=== PATIENT | male | born 1950 | race Hispanic/Latino ===

== ENCOUNTER → 2017-08-05 | Emergency (ER) | payer SELFPAY ==
[~2017-08-05] VITALS: Ht 162.6 cm; Wt 92.5 kg
== END | disposition left against medical advice (07) ==
LOC: ER 10:26
DX: M79.671 Pain in right foot (principal)

== ENCOUNTER → 2018-04-15 | Outpatient (CLI) | payer OTHER ==
--- NOTE | 2018-04-16 08:44 | Diagnostic Imaging Report ---
MRI SPINE LUMBAR WO HISTORY: Low back pain; right leg pain COMPARISON: None. TECHNIQUE: Sagittal T1, sagittal T2, sagittal STIR, axial T2, coronal T2, and axial proton density weighted images of the lumbar spine were obtained without contrast. DISCUSSION: Number of non-rib bearing lumbar vertebral bodies: 5. Alignment: Normal lordosis. No scoliosis. Vertebrae: Small nodular T1/T2 hyperintense lesion along the right L3 pedicle is likely a benign hemangioma. Otherwise, no definite evidence for fractures, infection or neoplasm. Conus medullaris: Normal, ends at L1. Cauda equina: No masses or arachnoiditis. Posterior paraspinal muscles: Well preserved. No signal abnormalities. Soft tissues: Mild bilateral renal pelviectasis is present. Mild multilevel disc degeneration is present. T12-L1: Disc bulge without significant canal or foraminal stenosis. L1-L2: Patent canal and foramina. L2-L3: Disc bulge without significant canal or foraminal stenosis. L3-L4: Patent canal and foramina. L4-L5: Mild bilateral foraminal stenoses due to disc bulge and facet arthrosis. No significant canal stenosis. L5-S1: Approximately 6 mm right subarticular disc extrusion (with minimal inferior migration) impinges upon the descending right S1 nerve root. No significant central canal stenosis. Moderate right and mild left foraminal stenoses due to asymmetric disc bulge and facet arthrosis. IMPRESSION: 1. Mild multilevel disc degeneration without significant canal stenosis. 2. Approximately 6 mm right L5-S1 subarticular disc extrusion impinges upon the descending right S1 nerve. 3. Multilevel bilateral lower lumbar degenerative foraminal stenoses - moderate on the right at L5-S1. Signed by: Dr. Dony Tena M.D. on 04/16/2018 8:40 AM
== END ==
LOC: MRI 14:52
PROVIDERS: ATTEND Specialist
DX: M47.816 Spondylosis without myelopathy or radiculopathy, lumbar region (principal)
CPT/HCPCS: 72148

== ENCOUNTER 2018-04-16 08:38 | Outpatient (RCR) | payer MEDICARE | END 2018-04-17 | LOC: PT 08:38 | PROVIDERS: ATTEND Specialist | DX: M47.816 Spondylosis without myelopathy or radiculopathy, lumbar region (principal); M47.26 Other spondylosis with radiculopathy, lumbar region; M54.5 Low back pain; M54.31 Sciatica, right side; M62.81 Muscle weakness (generalized) | CPT/HCPCS: 97139 ==

== ENCOUNTER 2018-05-16 09:00 | Outpatient (RCR) | payer MEDICARE | END 2018-05-18 | LOC: PT 09:00 | PROVIDERS: ATTEND Specialist | DX: M54.5 Low back pain (principal); M53.3 Sacrococcygeal disorders, not elsewhere classified; M47.816 Spondylosis without myelopathy or radiculopathy, lumbar region; M47.26 Other spondylosis with radiculopathy, lumbar region; M62.81 Muscle weakness (generalized) ==

== ENCOUNTER 2018-05-30 08:49 | Outpatient (RCR) | payer MEDICARE | END 2018-06-17 | LOC: PT 08:49 | PROVIDERS: ATTEND Specialist | DX: M54.5 Low back pain (principal); M53.3 Sacrococcygeal disorders, not elsewhere classified ==

== ENCOUNTER 2018-10-22 02:56 | Emergency (ER) | payer MEDICARE, OTHER ==
[~2018-10-22] VITALS: Ht 162.6 cm; Wt 92.5 kg
--- OUTSIDE RECORDS SUMMARY | 2018-10-22 02:58 | XMS REPORT | Summary of Care ---
Author Author MARKIE BARRERA M.D. Organization Unknown Address [facility] Phone Unavailable Care Team Providers Care Coffee Taster Name Role Phone MARKIE BARRERA M.D. Unavailable Unavailable Marielena Baugh M.A. Unavailable Unavailable GENEVA BONNER MD Unavailable Unavailable MARKIE BARRERA MD Unavailable Unavailable Unavailable Unavailable Functional Status Name Dates Details Functional status health issues are not documented Status: Name Dates Details Cognitive status health issues are not documented Status: Problems Name Dates Details Impacted cerumen of left ear (380.4, H61.22) Status: Active Otalgia of left ear (388.70, H92.02) Status: Active Sensation of plugged ear on left side (388.8, H93.8X2) Status: Active Thyroid nodule (241.0, E04.1) Status: Active Chronic otitis externa (380.23, H60.60) Status: Active Encounter for mastoidectomy cavity debridement (383.30, H95.199) Status: Active Medications Name Dates Details Fluocinolone Acetonide 0.01 % Otic Oil 3-4 drops to both ears daily. Quantity: 2 MARKIE BARRERA M.D. * Start : 27-Feb-2018 Active 20 ML Bottle Ciprodex 0.3-0.1 % Otic Suspension 3-4 drops to the affected ear BID * Quantity: 1 Refills: 6 MARKIE BARRERA M.D. * Start : 21-Jul-2018 Active 7.5 ML Bottle Allergies and Adverse Reactions Name Dates Details No Known Drug Allergies (Allergy) Status: Active Past Medical History Name Dates Details History of Known health problems: none (V49.89, Z78.9) Status: Resolved Procedures Procedure Dates Details History of Ear Surgery Completed History of Hernia Repair Inguinal Sliding Completed History of Sinus Surgery Completed Immunization Name Dates Details Influenza Not Administered Pneumococcal polysaccharide vaccine, 23 valent Not Administered Tdap Not Administered Shingrix 50 MCG Intramuscular Suspension Reconstituted Not Administered Family History Name Dates Details No pertinent family history (V49.89, Z78.9) Comments: Unknown Status: Active Name Dates Details No pertinent family history (V49.89, Z78.9) Status: Active Social History Name Dates Details - Status: Name Dates Details Former smoker Vital Signs Date Test Result Details [id number] BP Systolic 127 mm[Hg] Status: Comments: Location: E; Position: Sitting BP Diastolic 74 mm[Hg] Status: Comments: Location: [facility] [place]; Position: Sitting Height 70 in Status: Weight 204.8 lb Status: Body Mass Index Calculated 29.39 kg/m2 Status: Body Surface Area Calculated 2.11 m2 Status: Heart Rate 77 /min Status: Results Date Description Value Details Results not documented Plan of Care Name Dates Details Planned Observations Planned Goals not documented Planned Encounters Appointment; MARKIE BARRERA M.D. On: 22-Jan-2019 10:30 Interventions Provided Medication Changes* Ciprodex 0.3-0.1 % Otic Suspension - Start Instructions Name Dates Details Instructions not documented Encounters Appointment; MARKIE BARRERA M.D. Encounter Diagnosis: Problem not documented On: 07-Dec-2016 9:30 Appointment; MARKIE BARRERA M.D. Encounter Diagnosis: Problem not documented On: 14-Mar-2017 11:00 Appointment; MARKIE BARRERA M.D. Encounter Diagnosis: Problem not documented On: 07-Jun-2017 10:30 Appointment; MARKIE BARRERA M.D. Encounter Diagnosis: Problem not documented On: 08-Aug-2017 13:45 Appointment; MARKIE BARRERA M.D. Encounter Diagnosis: Problem not documented On: 31-Oct-2017 10:30 Appointment; MARKIE BARRERA M.D. Encounter Diagnosis: Problem not documented On: 07-Nov-2017 14:30 Appointment; MARKIE BARRERA M.D. Encounter Diagnosis: Problem not documented On: 27-Feb-2018 13:00 Appointment; MARKIE BARRERA M.D. Encounter Diagnosis: Problem not documented On: 17-Jul-2018 10:30
--- OUTSIDE RECORDS SUMMARY | 2018-10-22 02:58 | XMS REPORT | Clinical Summary ---
Author Author [facility] Organization [facility] Address Unknown Phone Unavailable Care Team Providers Care Dumper Bailer Operator Name Role Phone PCP Unavailable Allergies No Known Allergies Current Medications Prescription Sig. Disp. Refills Start End Date Status Date ibuprofen (MOTRIN) 800 mg Take 1 tablet by mouth 60 tablet 2 07/08/19 Active tabletIndications: every 8 hours as needed 14 Cholesteatoma of left for Pain. ear, H/O mastoidectomy, Otorrhea HYDROcodone-acetaminophen Take 2 tablets by mouth 120 tablet 0 11/21/19 Active (NORCO) 5-325 mg every 4 hours as needed 14 tabletIndications: for Pain. Hearing loss naproxen (NAPROSYN) 375 Take 1 tablet by mouth 2 60 tablet 0 02/17/20 Active mg tabletIndications: times daily (with meals). 14 Cholesteatoma of left ear, H/O mastoidectomy, Hearing loss acetaminophen (TYLENOL) Take 650 mg by mouth Active 325 mg tablet Before meals as needed for Pain. traMADol (ULTRAM) 50 mg Take 1 tablet by mouth 30 tablet 0 04/05/19 Active tabletIndications: every 6 hours as needed 16 Otalgia of left ear for Pain. 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 HLD (hyperlipidemia) 12/18/2012 Encounters Date Type Specialty Care Team Description 12/26/2016 [facility] Leisa Lechuga Hearing loss of left ear, Encounter unspecified hearing loss type 12/26/2016 Office Visit Ent-Otolaryngology Tyler Kearney MD H/O mastoidectomy (Primary Dx); Hearing loss of left ear, unspecified hearing loss type; Cholesteatoma of left ear 10/11/2016 Office Visit Ent-Otolaryngology Tyler Kearney MD H/O mastoidectomy (Primary Dx); Hearing loss of left ear, unspecified hearing loss type; Impacted cerumen of left ear after 08/04/2016 Immunizations Name Dates Previously Given Next Due Influenza Vaccine 12/18/2012 Tdap Tetanus, diphtheria, 12/18/2012 (Deferred: Too early to give - pt acellular pertussis states he rec'd it 1 year ago) Vaccine Family History Medical History Relation Name Comments Unknown Fam Hx Relation Name Status Comments Brother Alive Brother Alive Brother Alive Brother Alive Daughter Alive Daughter Alive Father Grandchild Alive Grandchild Alive Grandchild Alive Grandchild Alive Grandchild Alive Grandchild Alive Grandchild Alive Grandchild Alive Grandchild Alive Grandchild Alive Grandchild Alive Grandchild Alive Maternal Grandfather Maternal Grandmother Mother Paternal Grandfather Paternal Grandmother Sister Alive Sister Alive Sister Alive Sister Alive Sister Alive Sister Alive Sister Alive Son Alive Social History Tobacco Use Types Packs/Day Years Used Date Never Smoker Smokeless Tobacco: Never Used Tobacco Cessation: Counseling Given: No Alcohol Use Drinks/Week oz/Week Comments Yes Sex Assigned at Date Recorded Not on file Last Filed Vital Signs Vital Sign Reading Time Taken Blood Pressure 141/76 12/26/2016 10:56 AM INFORMATION SERVICES ASSISTANT Pulse 74 12/26/2016 10:56 AM INFORMATION SERVICES ASSISTANT Temperature 36.6 C (97.9 F) 12/26/2016 10:56 AM INFORMATION SERVICES ASSISTANT Respiratory Rate 18 12/26/2016 10:56 AM INFORMATION SERVICES ASSISTANT Oxygen Saturation - - Inhaled Oxygen - - Concentration Weight 91.6 kg (202 lb) 12/26/2016 10:56 AM INFORMATION SERVICES ASSISTANT Height 177.8 cm (5' 10") 12/26/2016 10:56 AM INFORMATION SERVICES ASSISTANT Body Mass Index 28.98 12/26/2016 10:56 AM INFORMATION SERVICES ASSISTANT Plan of Treatment Health Maintenance Due Date Last Done Comments COLORECTAL CANCER SCRN 2000 ANNUAL (FIT/FOBT) AGE 50 TO 75 IMM PNEUMOCOCCAL AGE 65 07/16/2015 AND UP Results Not on fileafter 08/04/2016
--- OUTSIDE RECORDS SUMMARY | 2018-10-22 02:58 | XMS REPORT | Continuity of Care Document ---
Author Author [facility] Organization [facility] Address Unknown Phone Unavailable Care Team Providers Care Billing And Accounting Staff Assistant Name Role Phone [email or web address] Unavailable Unavailable Problems Problem Status Onset Date Classification Date Reported Comments Source Impacted cerumen of left ear Active 10/11/2016 Problem 08/09/2017 [facility] H/O mastoidectomy Active 06/15/2013 Problem 08/09/2017 [facility] Hearing loss Active 06/15/2013 Problem 08/09/2017 [facility] Cholesteatoma of left ear Active 06/15/2013 Problem 08/09/2017 [facility] HLD Active 12/18/2012 Problem 08/09/2017 [facility] Medications Medication Details Route Status Patient Instructions Ordering Provider Order Date Source Tramadol 50 Mg Tablet Ultram 50 Mg Tablet Take 1 tablet by mouth every 6 hours as needed for Pain. Oral Active 04/05/2015 [facility] Naproxen 375 Mg Tablet Take 1 tablet by mouth 2 times daily (with meals). Oral Active 02/16/2014 [facility] Hydrocodone 5 Mg-Acetaminophen 325 Mg Tablet [place] 5 Mg-325 Mg Tablet Take 2 tablets by mouth every 4 hours as needed for Pain. Oral Active 11/20/2013 [facility] Ibuprofen 800 Mg Tablet Take 1 tablet by mouth every 8 hours as needed for Pain. Oral Active 07/07/2013 [facility] Acetaminophen 325 Mg Tablet Tylenol 325 Mg Tablet Take 650 mg by mouth Before meals as needed for Pain. Oral Active [facility] Allergies, Adverse Reactions, Alerts No Known Medication Allergies Immunizations Immunization Date Given Site Status Last Updated Comments Source Influenza Vaccine 12/18/2012 completed [facility] Tdap Tetanus, diphtheria, acellular pertussis Vaccine 12/18/2012 Not Given Deferred: Too early to give - pt states he rec'd it 1 year ago [facility] Results No Data Provided for This Section Pathology Reports No Data Provided for This Section Diagnostic Reports No Data Provided for This Section Consultation Notes No Data Provided for This Section Discharge Summaries No Data Provided for This Section History and Physicals No Data Provided for This Section Vital Signs Vital Sign Value Date Comments Source Systolic (mm Hg) 141 12/26/2016 [facility] Diastolic (mm Hg) 76 12/26/2016 [facility] Heart Rate 74 12/26/2016 [facility] Temperature Oral (F) 36.61 Cathi 12/26/2016 [facility] Respitory Rate 18 12/26/2016 [facility] Height 177.8 cm 12/26/2016 [facility] Weight 91.627 12/26/2016 [facility] BMI Calculated 28.98 12/26/2016 [facility] Encounters Location Location Details Encounter Type Encounter Number Reason For Visit Attending Provider ADM Date DC Date Status Source [facility] Office Visit [id number] H/O mastoidectomy Hearing loss of left ear, unspecified hearing loss type Impacted cerumen of left ear Tyler Kearney MD 10/11/2016 10/11/2016 [facility] Office Visit [id number] H/O mastoidectomy Hearing loss of left ear, unspecified hearing loss type Cholesteatoma of left ear Tyler Kearney MD 12/26/2016 12/26/2016 [facility] Hospital Encounter [id number] Hearing loss of left ear, unspecified hearing loss type Leisa Lechuga 12/26/2016 12/27/2016 [facility] Procedures No Data Provided for This Section Assessment and Plan No Data Provided for This Section Plan of Care Plan of Care Date Source IMM PNEUMOCOCCAL AGE 65 AND UP 07/16/2015 [facility] COLORECTAL CANCER SCRN ANNUAL (FIT/FOBT) AGE 50 TO 75 2000 [facility] Social History Social History Date Source Tobacco UseTypesPacks/DayYears UsedDate Never Smoker Smokeless Tobacco: Never Used Tobacco Cessation: Counseling Given: No Alcohol UseDrinks/Weekoz/WeekComments Yes Sex Assigned at BirthDate Recorded Not on file 12/26/2016 [facility] Family History Value Date Source Medical HistoryRelationNameComments Unknown Fam Hx RelationNameStatusComments Brother Alive Brother Alive Brother Alive Brother Alive Daughter Alive Daughter Alive Father Grandchild Alive Grandchild Alive Grandchild Alive Grandchild Alive Grandchild Alive Grandchild Alive Grandchild Alive Grandchild Alive Grandchild Alive Grandchild Alive Grandchild Alive Grandchild Alive Maternal Grandfather Maternal Grandmother Mother Paternal Grandfather Paternal Grandmother Sister Alive Sister Alive Sister Alive Sister Alive Sister Alive Sister Alive Sister Alive Son Alive 08/09/2017 [facility] Medical HistoryRelationNameComments Unknown Fam Hx RelationNameStatusComments Brother Alive Brother Alive Brother Alive Brother Alive Daughter Alive Daughter Alive Father Grandchild Alive Grandchild Alive Grandchild Alive Grandchild Alive Grandchild Alive Grandchild Alive Grandchild Alive Grandchild Alive Grandchild Alive Grandchild Alive Grandchild Alive Grandchild Alive Maternal Grandfather Maternal Grandmother Mother Paternal Grandfather Paternal Grandmother Sister Alive Sister Alive Sister Alive Sister Alive Sister Alive Sister Alive Sister Alive Son Alive 08/07/2017 [facility] Medical HistoryRelationNameComments Unknown Fam Hx RelationNameStatusComments Brother Alive Brother Alive Brother Alive Brother Alive Daughter Alive Daughter Alive Father Grandchild Alive Grandchild Alive Grandchild Alive Grandchild Alive Grandchild Alive Grandchild Alive Grandchild Alive Grandchild Alive Grandchild Alive Grandchild Alive Grandchild Alive Grandchild Alive Maternal Grandfather Maternal Grandmother Mother Paternal Grandfather Paternal Grandmother Sister Alive Sister Alive Sister Alive Sister Alive Sister Alive Sister Alive Sister Alive Son Alive 08/05/2017 [facility] Advance Directives No Data Provided for This Section Functional Status No Data Provided for This Section
--- OUTSIDE RECORDS SUMMARY | 2018-10-22 02:58 | XMS REPORT | Clinical Summary ---
Author Author [facility] Organization [facility] Address Unknown Phone Unavailable Care Team Providers Care Journalists And Other Writers Name Role Phone PCP Unavailable Allergies No [...] type; Impacted cerumen of left ear after 08/06/2016 Immunizations Name Dates Previously Given Next Due [...] Taken Blood Pressure 141/76 12/26/2016 10:56 AM IN STORE DEMONSTRATOR Pulse 74 12/26/2016 10:56 AM IN STORE DEMONSTRATOR Temperature 36.6 C (97.9 F) 12/26/2016 10:56 AM IN STORE DEMONSTRATOR Respiratory Rate 18 12/26/2016 10:56 AM IN STORE DEMONSTRATOR Oxygen Saturation - - Inhaled Oxygen - - Concentration Weight 91.6 kg (202 lb) 12/26/2016 10:56 AM IN STORE DEMONSTRATOR Height 177.8 cm (5' 10") 12/26/2016 10:56 AM IN STORE DEMONSTRATOR Body Mass Index 28.98 12/26/2016 10:56 AM IN STORE DEMONSTRATOR Plan of Treatment Health Maintenance Due Date Last Done Comments COLORECTAL CANCER SCRN 2000 ANNUAL (FIT/FOBT) AGE 50 TO 75 IMM PNEUMOCOCCAL AGE 65 07/16/2015 AND UP Results Not on fileafter 08/06/2016
--- OUTSIDE RECORDS SUMMARY | 2018-10-22 02:58 | XMS REPORT | Clinical Summary ---
Author Author [facility] Organization [facility] Address Unknown Phone Unavailable Care Team Providers Care Breast Worker Name Role Phone PCP Unavailable Allergies No [...] type; Impacted cerumen of left ear after 08/08/2016 Immunizations Name Dates Previously Given Next Due [...] Taken Blood Pressure 141/76 12/26/2016 10:56 AM CATTLE SHIPPER Pulse 74 12/26/2016 10:56 AM CATTLE SHIPPER Temperature 36.6 C (97.9 F) 12/26/2016 10:56 AM CATTLE SHIPPER Respiratory Rate 18 12/26/2016 10:56 AM CATTLE SHIPPER Oxygen Saturation - - Inhaled Oxygen - - Concentration Weight 91.6 kg (202 lb) 12/26/2016 10:56 AM CATTLE SHIPPER Height 177.8 cm (5' 10") 12/26/2016 10:56 AM CATTLE SHIPPER Body Mass Index 28.98 12/26/2016 10:56 AM CATTLE SHIPPER Plan of Treatment Health Maintenance Due Date Last Done Comments COLORECTAL CANCER SCRN 2000 ANNUAL (FIT/FOBT) AGE 50 TO 75 IMM PNEUMOCOCCAL AGE 65 07/16/2015 AND UP Results Not on fileafter 08/08/2016
[2018-10-22 03:41] LABS: BASOPHILS % 0.6 % (0.0-1.0); EOSINOPHILS # (AUTO) 0.2 (0.0-0.4); EOSINOPHILS % 3.5 % (0.0-6.0); HEMATOCRIT 41.9 % (38.2-49.6); HEMOGLOBIN 14.7 g/dL (14.0-18.0); LYMPHOCYTES # (AUTO) 1.7 (1.0-3.2); LYMPHOCYTES % 35.4 % (18.0-39.1); MEAN CORPUSCULAR HEMOGLOBIN 31.3 pg (28-32); MEAN CORPUSCULAR HGB CONC 35.1 g/dL (31-35); MEAN CORPUSCULAR VOLUME 89.3 fL (81-99); MONOCYTES # (AUTO) 0.5 (0.2-0.8); MONOCYTES % 9.4 % (4.4-11.3); NEUTROPHILS # (AUTO) 2.4 (2.1-6.9); NEUTROPHILS % 50.5 % (38.7-80.0); PLATELET COUNT 190 x10e3/uL (140-360); RED BLOOD COUNT 4.69 x10e6/uL (4.3-5.7)
--- NOTE | 2018-10-22 03:57 | Diagnostic Imaging Report ---
EXAMINATION: CHEST SINGLE (PORTABLE) COMPARISON: None INDICATION: ^SOB ^[id number] ^[id number] ^Y DISCUSSION: Frontal view of the chest obtained at 0336 hours. Images obtained through a back brace. HEART AND MEDIASTINUM: The heart is normal in size. The aorta is mildly tortuous. LINES: None. LUNGS: The lungs are well inflated and clear. No pneumonia or pulmonary edema. PLEURA: No pleural effusion or pneumothorax. BONES AND SOFT TISSUES: No focal osseous lesion. The soft tissues are normal. IMPRESSION: No acute cardiopulmonary disease. Signed by: Dr. Nuha Wallace MD on 10/22/2018 3:54 AM
[2018-10-22 04:12] LABS: ALANINE AMINOTRANSFERASE 24 IU/L (0-55); ALBUMIN 3.8 g/dL (3.5-5.0); ALBUMIN/GLOBULIN RATIO 1.2 (0.8-2.0); ALKALINE PHOSPHATASE 89 IU/L (40-150); ANION GAP 13.6 mmol/L (8-16); BLOOD UREA NITROGEN 10 mg/dL (7-26); BUN/CREATININE RATIO 12 (6-25); CALCIUM 10.3 mg/dL (8.4-10.2); CARBON DIOXIDE 27 mmol/L (22-29); CHLORIDE 100 mmol/L (98-107); CREATINE KINASE 91 IU/L (30-200); CREATININE, SERUM 0.81 mg/dL (0.72-1.25); EST GLOMERULAR FILTRATION RATE > 60 ML/MIN (60-); GLUCOSE 142 mg/dL (74-118); POTASSIUM 3.6 mmol/L (3.5-5.1); SODIUM 137 mmol/L (136-145)
[2018-10-22 04:40] VITALS: BP 136/59
== END 2018-10-22 04:55 | disposition home or self-care (01) ==
LOC: ER 02:56
DX: R06.09 Other forms of dyspnea (principal); M79.89 Other specified soft tissue disorders; I10 Essential (primary) hypertension; R73.9 Hyperglycemia, unspecified; E78.5 Hyperlipidemia, unspecified
CPT/HCPCS: 36415; 71045; 80053; 82550; 82553; 83880; 84484; 85025; 85379; 93005; 99284

== ENCOUNTER 2018-11-12 04:22 | Emergency (ER) | payer MEDICARE ==
[~2018-11-12] VITALS: Ht 162.6 cm; Wt 92.5 kg
--- OUTSIDE RECORDS SUMMARY | 2018-11-12 04:24 | XMS REPORT | Continuity of Care Document ---
Author Author [facility] Organization [facility] Address Unknown Phone Unavailable Care Team Providers Care Surgeon/President Name Role Phone [employer] [facility] Unavailable Unavailable Problems Problem Status Onset Date Classification Date Reported Comments Source Impacted cerumen of left ear Active 10/11/2016 Problem 08/09/2017 [facility] H/O mastoidectomy Active 06/15/2013 Problem 08/09/2017 [facility] Hearing loss Active 06/15/2013 Problem 08/09/2017 [facility] Cholesteatoma of left ear Active 06/15/2013 Problem 08/09/2017 [facility] HLD Active 12/18/2012 Problem 08/09/2017 [facility] Medications Medication Details Route Status Patient Instructions Ordering Provider Order Date Source Tramadol 50 Mg Tablet Ultram 50 Mg Tablet Take 1 tablet by mouth every 6 hours as needed for Pain. Oral Active 04/05/2015 [facility] Naproxen 375 Mg Tablet Take 1 tablet by mouth 2 times daily (with meals). Oral Active 02/16/2014 [facility] Hydrocodone 5 Mg-Acetaminophen 325 Mg Tablet [place] 5 Mg-325 Mg Tablet Take 2 tablets by mouth every 4 hours as needed for Pain. Oral Active 11/20/2013 [facility] Ibuprofen 800 Mg Tablet Take 1 tablet by mouth every 8 hours as needed for Pain. Oral Active 07/07/2013 [facility] Acetaminophen 325 Mg Tablet Tylenol 325 Mg Tablet Take 650 mg by mouth Before meals as needed for Pain. Oral Active [facility] Allergies, Adverse Reactions, Alerts No Known Medication Allergies Immunizations Immunization Date Given Site Status Last Updated Comments Source Influenza Vaccine 12/18/2012 completed [facility] Tdap Tetanus, diphtheria, acellular pertussis Vaccine 12/18/2012 Not Given Deferred: Too early to give - pt states he rec'd it 1 year ago [facility] Results No Data Provided for This Section Pathology Reports No Data Provided for This Section Diagnostic Reports No Data Provided for This Section Consultation Notes No Data Provided for This Section Discharge Summaries No Data Provided for This Section History and Physicals No Data Provided for This Section Vital Signs Vital Sign Value Date Comments Source Systolic (mm Hg) 141 12/26/2016 [facility] Diastolic (mm Hg) 76 12/26/2016 [facility] Heart Rate 74 12/26/2016 [facility] Temperature Oral (F) 36.61 Cathi 12/26/2016 [facility] Respitory Rate 18 12/26/2016 [facility] Height 177.8 cm 12/26/2016 [facility] Weight 91.627 12/26/2016 [facility] BMI Calculated 28.98 12/26/2016 [facility] Encounters Location Location Details Encounter Type Encounter Number Reason For Visit Attending Provider ADM Date DC Date Status Source [facility] Office Visit [id number] H/O mastoidectomy Hearing loss of left ear, unspecified hearing loss type Impacted cerumen of left ear Tyler Kearney MD 10/11/2016 10/11/2016 [facility] Office Visit [id number] H/O mastoidectomy Hearing loss of left ear, unspecified hearing loss type Cholesteatoma of left ear yTler Kearney MD 12/26/2016 12/26/2016 [facility] Hospital Encounter [id number] Hearing loss of left ear, unspecified hearing loss type Leisa Lechuga 12/26/2016 12/27/2016 [facility] Procedures No Data Provided for This Section Assessment and Plan No Data Provided for This Section Plan of Care Plan of Care Date Source IMM PNEUMOCOCCAL AGE 65 AND UP 07/16/2015 [facility] COLORECTAL CANCER SCRN ANNUAL (FIT/FOBT) AGE 50 TO 75 2000 [facility] Social History Social History Date Source Tobacco UseTypesPacks/DayYears UsedDate Never Smoker Smokeless Tobacco: Never Used Tobacco Cessation: Counseling Given: No Alcohol UseDrinks/Weekoz/WeekComments Yes Sex Assigned at BirthDate Recorded Not on file 12/26/2016 [facility] Family History Value Date Source Medical HistoryRelationNameComments [...] Sister Alive Sister Alive Son Alive 08/09/2017 [facility] Medical HistoryRelationNameComments Unknown Fam Hx RelationNameStatusComments Brother [...] Sister Alive Sister Alive Son Alive 08/07/2017 [facility] Medical HistoryRelationNameComments Unknown Fam Hx RelationNameStatusComments Brother [...] Sister Alive Sister Alive Son Alive 08/05/2017 [facility] Advance Directives No Data Provided for This Section Functional Status No Data Provided for This Section
[2018-11-12 04:45] LABS: BASOPHILS % 0.7 % (0.0-1.0); EOSINOPHILS # (AUTO) 0.2 (0.0-0.4); EOSINOPHILS % 3.3 % (0.0-6.0); HEMATOCRIT 42.5 % (38.2-49.6); HEMOGLOBIN 14.5 g/dL (14.0-18.0); LYMPHOCYTES # (AUTO) 2.3 (1.0-3.2); LYMPHOCYTES % 39.2 % (18.0-39.1); MEAN CORPUSCULAR HEMOGLOBIN 30.8 pg (28-32); MEAN CORPUSCULAR HGB CONC 34.1 g/dL (31-35); MEAN CORPUSCULAR VOLUME 90.2 fL (81-99); MONOCYTES # (AUTO) 0.6 (0.2-0.8); MONOCYTES % 9.8 % (4.4-11.3); NEUTROPHILS # (AUTO) 2.7 (2.1-6.9); NEUTROPHILS % 46.7 % (38.7-80.0); PLATELET COUNT 225 x10e3/uL (140-360); RED BLOOD COUNT 4.71 x10e6/uL (4.3-5.7); RED CELL DISTRIBUTION WIDTH 11.9 % (11.7-14.4)
[2018-11-12 05:05] LABS: ALANINE AMINOTRANSFERASE 29 IU/L (0-55); ALBUMIN 3.5 g/dL (3.5-5.0); ALBUMIN/GLOBULIN RATIO 1.1 (0.8-2.0); ALKALINE PHOSPHATASE 86 IU/L (40-150); ANION GAP 13.4 mmol/L (8-16); BLOOD UREA NITROGEN 16 mg/dL (7-26); BUN/CREATININE RATIO 19 (6-25); CALCIUM 9.5 mg/dL (8.4-10.2); CARBON DIOXIDE 28 mmol/L (22-29); CHLORIDE 100 mmol/L (98-107); CREATINE KINASE 52 IU/L (30-200); CREATININE, SERUM 0.84 mg/dL (0.72-1.25); EST GLOMERULAR FILTRATION RATE > 60 ML/MIN (60-); GLUCOSE 137 mg/dL (74-118); POTASSIUM 4.4 mmol/L (3.5-5.1); SODIUM 137 mmol/L (136-145)
--- NOTE | 2018-11-12 06:08 | Diagnostic Imaging Report ---
EXAMINATION: CHEST 2 VIEWS INDICATION: ^sob ^[id number] ^[id number] ^Y COMPARISON: 10/22/2018 FINDINGS: PA and lateral views TUBES and LINES: None. LUNGS: Lungs are well inflated. There is no evidence of pneumonia or pulmonary edema. Mild left basilar atelectasis/scarring. PLEURA: No pleural effusion or pneumothorax. HEART AND MEDIASTINUM: The cardiomediastinal silhouette is unremarkable. BONES AND SOFT TISSUES: No acute osseous lesion. Soft tissues are unremarkable. UPPER ABDOMEN: No free air under the diaphragm. IMPRESSION: No acute thoracic abnormality. Signed by: Dr. Ross Jones MD on 11/12/2018 6:05 AM
[2018-11-12 07:10] VITALS: BP 122/71
== END 2018-11-12 07:30 | disposition home or self-care (01) ==
LOC: ER 04:22
DX: R06.09 Other forms of dyspnea (principal); I10 Essential (primary) hypertension; E78.5 Hyperlipidemia, unspecified; M54.9 Dorsalgia, unspecified; G89.29 Other chronic pain
CPT/HCPCS: 36415; 71046; 80053; 82550; 82553; 83880; 84484; 85025; 85379; 93005; 99284

== ENCOUNTER 2019-10-18 07:27 | Emergency (ER) | payer MEDICARE ==
[~2019-10-18] VITALS: Ht 162.6 cm; Wt 92.5 kg
[2019-10-18] MEDS ORDERED: SODIUM CHLORIDE 0.9% 1000ML 1,000 ML IV STA (07:40)
[2019-10-18] MEDS ORDERED: METOCLOPRAMIDE HCL 10 MG/2ML VIAL IV ONE (07:45)
[2019-10-18] MEDS ORDERED: DIPHENHYDRAMINE HCL INJ 50 MG/ML VIAL IV ONE (07:45)
[2019-10-18] MEDS ORDERED: ACETAMIN/BUTALBITAL/CAFFEINE TAB PO ONE (07:45)
[2019-10-18 07:54] LABS: BASOPHILS % 0.4 % (0.0-1.0); EOSINOPHILS # (AUTO) 0.1 (0.0-0.4); EOSINOPHILS % 2.1 % (0.0-6.0); HEMATOCRIT 42.6 % (38.2-49.6); HEMOGLOBIN 14.2 g/dL (14.0-18.0); LYMPHOCYTES # (AUTO) 1.4 (1.0-3.2); LYMPHOCYTES % 25.9 % (18.0-39.1); MEAN CORPUSCULAR HEMOGLOBIN 30.3 pg (28-32); MEAN CORPUSCULAR HGB CONC 33.3 g/dL (31-35); MONOCYTES # (AUTO) 0.4 (0.2-0.8); MONOCYTES % 7.6 % (4.4-11.3); NEUTROPHILS # (AUTO) 3.4 (2.1-6.9); NEUTROPHILS % 63.8 % (38.7-80.0); PLATELET COUNT 147 x10e3/uL (140-360); RED BLOOD COUNT 4.68 x10e6/uL (4.3-5.7); RED CELL DISTRIBUTION WIDTH 12.7 % (11.7-14.4)
--- NOTE | 2019-10-18 08:06 | Emergency Department Note ---
History of Present Illnes History of Present Illness Chief Complaint: General Medicine Complaints History of Present Illness This is a 69 year old male arrives to the ED with complaints of a headache- states he accidentally hit his head against a car door about 3 week ago and has been in pain since. Pt Historian: Patient Arrival Mode: Car Top Trimmer Required: No Onset (how long ago): week(s) Radiation: Reports non-radiation Severity: mild Duration (how long): week(s) Timing of current episode: intermittent Progression: waxing and waning Chronicity: recurrent Relieving factors: none Exacerbating factors: none Associated symptoms: Reports denies other symptoms, Reports headaches Past Medical/Family History Physician Review I have reviewed the patient's past medical and family history. Any updates have been documented here. Past Medical History Recent Fever: No Clinical Suspicion of Infectio: No New/Unexplained Change in Ment: No Past Medical History: Hypertension, Hyperlipedemia, Chronic Back Pain Past Surgical History: Hernia Repair Other Surgery: HERNIA X6 BACK SX Social History Smoking Cessation: Never Smoker Counseling Performed: No Alcohol Use: Occasional Any Illegal Drug Use: No Other Last Tetanus: UNK Any Pre-Existing Lines (PICC,: No Review of Systems Review of Systems Constitutional: Reports no symptoms EENTM: Reports no symptoms Cardiovascular: Reports no symptoms Respiratory: Reports no symptoms Gastrointestinal: Reports no symptoms Genitourinary: Reports no symptoms Musculoskeletal: Reports no symptoms Integumentary: Reports no symptoms Neurological: Reports as per HPI, Reports headache; Denies numbness Psychological: Reports no symptoms Endocrine: Reports no symptoms Hematological/Lymphatic: Reports no symptoms Review of other systems: All other systems negative Physical Exam Related Data Allergies: Coded Allergies: No Known Allergies (Unverified , 08/05/17) Triage Vital Signs Vital Signs Date Time Temp Pulse Resp B/P (MAP) Pulse Ox O2 Delivery O2 Flow Rate FiO2 10/18/19 07:32 65 17 142/76 100 Room Air 10/18/19 07:47 97.7 Vital signs reviewed: Yes Physical Exam CONSTITUTIONAL Constitutional: Present well-developed, Present well-nourished HENT HENT: Present normocephalic, Present atraumatic, Present oropharynx clear/moist, Present nose normal HENT L/R: Present left ext ear normal, Present right ext ear normal EYES Eyes: Reports PERRL, Reports conjunctivae normal NECK Neck: Present ROM normal PULMONARY Pulmonary: Present effort normal, Present breath sounds normal CARDIOVASCULAR Cardiovascular: Present regular rhythm, Present heart sounds normal, Present capillary refill normal, Present normal rate GASTROINTESTINAL Abdominal: Present soft, Present nontender, Present bowel sounds normal GENITOURINARY Genitourinary: Present exam deferred SKIN Skin: Present warm, Present dry MUSCULOSKELETAL Musculoskeletal: Present ROM normal NEUROLOGICAL Neurological: Present alert, Present oriented x 3, Present no gross motor or sensory deficits PSYCHOLOGICAL Psychological: Present mood/affect normal, Present judgement normal Results Laboratory Laboratory Laboratory Tests Test 10/18/19 07:44 Lab results reviewed: Yes Laboratory comments Laboratory Tests Test 10/18/19 07:44 White Blood Count 5.29 x10e3/uL (4.8-10.8) Red Blood Count 4.68 x10e6/uL (4.3-5.7) Hemoglobin 14.2 g/dL (14.0-18.0) Hematocrit 42.6 % (38.2-49.6) Mean Corpuscular Volume 91.0 fL (81-99) Mean Corpuscular Hemoglobin 30.3 pg (28-32) Mean Corpuscular Hemoglobin Concent 33.3 g/dL (31-35) Red Cell Distribution Width 12.7 % (11.7-14.4) Platelet Count 147 x10e3/uL (140-360) Neutrophils (%) (Auto) 63.8 % (38.7-80.0) Lymphocytes (%) (Auto) 25.9 % (18.0-39.1) Monocytes (%) (Auto) 7.6 % (4.4-11.3) Eosinophils (%) (Auto) 2.1 % (0.0-6.0) Basophils (%) (Auto) 0.4 % (0.0-1.0) Neutrophils # (Auto) 3.4 (2.1-6.9) Lymphocytes # (Auto) 1.4 (1.0-3.2) Monocytes # (Auto) 0.4 (0.2-0.8) Eosinophils # (Auto) 0.1 (0.0-0.4) Basophils # (Auto) 0.0 (0.0-0.1) Absolute Immature Granulocyte (auto 0.01 x10e3/uL (0-0.1) Sodium Level 138 mmol/L (136-145) Potassium Level 4.0 mmol/L (3.5-5.1) Chloride Level 106 mmol/L (98-107) Carbon Dioxide Level 20 mmol/L (22-29) Anion Gap 16.0 mmol/L (8-16) Blood Urea Nitrogen 13 mg/dL (7-26) Creatinine 0.99 mg/dL (0.72-1.25) Estimat Glomerular Filtration Rate > 60 ML/MIN (60-) BUN/Creatinine Ratio 13 (6-25) Glucose Level 269 mg/dL (74-118) Calcium Level 8.7 mg/dL (8.4-10.2) Total Bilirubin 0.6 mg/dL (0.2-1.2) Aspartate Amino Transf (AST/SGOT) 20 IU/L (5-34) Alanine Aminotransferase (ALT/SGPT) 28 IU/L (0-55) Alkaline Phosphatase 69 IU/L (40-150) Total Protein 6.4 g/dL (6.5-8.1) Albumin 3.5 g/dL (3.5-5.0) Globulin 2.9 g/dL (2.3-3.5) Albumin/Globulin Ratio 1.2 (0.8-2.0) Imaging Imaging results reviewed: Yes Assessment & Plan Medical Decision Making MDM 69 yo M arrived to the ED with complaints of a headache after a trauma. Pt with no neurological deficits, ambulatory with a steady gait, patient's CMP glucose mildly elevated. No known history of diabetes. Spoke to patient's son Mendel Portillo and recommend outpatient follow-up. No concerns of DKA or elevated anion gap metabolic acidosis. Patient CT brain unremarkable. Patient's headache is likely secondary to post trauma resulting in the type of posttraumatic headache/pain syndrome/concussion. Patient felt better with migraine cocktail and was stable for discharge home. Recommend outpatient follow-up if symptoms continue. Assessment & Plan Final Impression: (1) Concussion (2) Post-traumatic headache Depart Disposition: HOME, SELF-CARE Last Vital Signs Date Time Temp Pulse Resp B/P (MAP) Pulse Ox O2 Delivery O2 Flow Rate FiO2 10/18/19 07:47 97.7 60 16 125/66 98 Room Air Home Meds Active Scripts Tramadol Hcl (ULTRAM) 50 Mg Tablet, 50 MG PO Q6HR PRN for Mild Pain (1-3) or Fever>100.8, #14 TAB Prov:SHIRLEY ZUNIGA, 10/18/19 Butalbital/Aspirin/Caffeine (FIORINAL 50-325-40 MG CAPSULE) 1 Each Capsule, 1 TAB PO Q8HR PRN for HEADACHE, #30 Prov:SHIRLEY ZUNIGA, 10/18/19 Medications in the ED Metoclopramide HCl 10 mg ONCE ONCE IV ; Start 10/18/19 at 07:45; Stop 10/18/19 at 07:53; Status DC Diphenhydramine HCl 25 mg NOW ONCE IV ; Start 10/18/19 at 07:45; Stop 10/18/19 at 07:53; Status DC Sodium Chloride 1,000 ml @ 0 mls/hr Q0M STAT IV Last administered on 10/18/19at 07:55; Admin Dose 1,000 MLS/HR; Start 10/18/19 at 07:40; Stop 10/18/19 at 07:42; Status DC Acetaminophen/ Butalbital/ Caffeine 1 ea ONCE ONCE PO ; Start 10/18/19 at 07:45; Stop 10/18/19 at 07:53; Status DC SHIRLEY ZUNIGA DO Oct 18, 2019 08:06
--- OUTSIDE RECORDS SUMMARY | 2019-10-18 08:10 | XMS REPORT | Clinical Summary ---
Author Author [facility] Organization [facility] Address Unknown Phone Unavailable Care Team Providers Care Guest Relations Coordinator Name Role Phone PCP Unavailable Allergies No Known Allergies Medications End Date Status Medication Sig Dispensed Refills Start Date Active ibuprofen (MOTRIN) 800 mg Take 1 tablet 60 tablet 2 tabletIndications: by mouth 4 Cholesteatoma of left every 8 hours ear, H/O mastoidectomy, as needed for Otorrhea Pain. Active HYDROcodone-acetaminophen Take 2 120 tablet 0 (NORCO) 5-325 mg tablets by 4 tabletIndications: mouth every 4 Hearing loss hours as needed for Pain. Active naproxen (NAPROSYN) 375 Take 1 tablet 60 tablet 0 02/16/201 mg tabletIndications: by mouth 2 4 Cholesteatoma of left times daily ear, H/O mastoidectomy, (with meals). Hearing loss Active acetaminophen (TYLENOL) Take 650 mg 0 325 mg tablet by mouth Before meals as needed for Pain. Active traMADol (ULTRAM) 50 mg Take 1 tablet 30 tablet 0 tabletIndications: by mouth 6 Otalgia of left ear every 6 hours as needed for Pain. 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 HLD (hyperlipidemia) 12/18/2012 Immunizations Name Administration Dates Next Due Influenza Vaccine 12/18/2012 Tdap Tetanus, diphtheria, 12/18/2012 (Deferred: Too early to give - pt acellular pertussis states he rec'd it 1 year a go) Vaccine Family History Medical History Relation Name [...] Alive Sister Alive Son Alive Social History Date Tobacco Use Types Packs/Day Years Used Never Smoker Smokeless Tobacco: Never Used Tobacco Cessation: Counseling Given: No Drinks/Week oz/Week Comments Alcohol Use Yes Sex Assigned at Date Recorded Not on file Industry Job Start Date Occupation Not on file Not on file Not on file Travel End Travel History Travel Start No recent travel history available. Last Filed Vital Signs Not on file Plan of Treatment Health Maintenance Due Date Last Done Comments Colorectal Cancer Scrn 2000 Annual (FIT/FOBT) Age 50 to 75 IMM Pneumococcal Age 65 07/16/2015 and Up Results Not on fileafter 10/17/2018 Insurance Type Payer Benefit Subscriber ID Effective Phone Address Plan / Dates Group [facility] xxxxxxxxx 2017-P [phone] [address] MEDICARE resent [id number] [place] [address] [place] [id number] xxxxxxxxx 2013-P [phone] QUALIFIED resent [id number] MEDICARE [place], [place] BENEFICIAR [id number] Y
--- OUTSIDE RECORDS SUMMARY | 2019-10-18 08:10 | XMS REPORT | Continuity of Care Document ---
Author Author [facility] t Organization [facility] Address [address] [place] [address] Phone Unavailable Care Team Providers Care Optical Engineer Name Role Phone HA EASTON, Rachele BEAN PCP MARKIE BARRERA M.D. Attphys Unavailable Coleman JACKSON Attphys Unavailable MINERVA ISBELL Attphys Unavailable Payers Payer Name Policy Type Policy Number Effective Date Expiration Date Jaswant fuentes [facility] Medicare Complete [id number] C HI [facility] Hmo [id number] [facility] [id number] [facility] Problems Condition Name Condition Details Condition Category Status Onset Date Resolution Date Last Treatment Date Treating Clinician Comments Source Impacted cerumen of left ear Impacted cerumen of left ear Disease Active 2016-10-11 00:00:00 [facility] ealth H/O mastoidectomy H/O mastoidectomy Disease Active 2013-06-15 00:00:00 [facility] Hearing loss Hearing loss Disease Active 2013-06-15 00:00:00 [facility] 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 Disease Ac tive 2013-06-15 00:00:00 [facility] HLD (hyperlipidemia) HLD (hyperlipidemia) Disease Active 00:00:00 [facility] History of Known health problems: none History of Known heal th problems: none Problem Resolved [facility] Encounter for mastoidectomy cavity debridement Encount er for mastoidectomy cavity debridement [facility] Otalgia of left ear Otalgia of left ear Problem Active [facility] Impacted cerumen of left ear Impacted cerumen of left ear Problem Active [facility] Thyroid nodule Thyroid nodule Problem Active [facility] Chronic otitis externa Chronic otitis externa Problem Active [facility] Sensation of plugged ear on left side Sensation of plugged e ar on left side Problem Active [facility] Allergies, Adverse Reactions, Alerts Allergy Name Allergy Type Status Severity Reaction(s) Onset Date Inacti ve Date Treating Clinician Comments Source No Known Allergies DA Active U 2018-10-02 00:00:00 [facility] No Known Allergies DA Active U 2018-09-26 00:00:00 [facility] Family History Family Member Diagnosis Comments Start Date Stop Date Source unknown [facility] Social History Social Habit Start Date Stop Date Quantity Comments Source Sex Assigned At [facility] Alcohol intake 2016-12-26 00:00:00 2016-12-26 00:00:00 Current drinker of alcohol (finding) [facility] Smoking Status Start Date Stop Date Source Former smoker [facility] Never smoker [facility] Medications Ordered Medication Name Filled Medication Name Start Date Stop Da te Current Medication? Ordering Clinician Indication Dosage Frequency Signature (SIG) Comments Components Source Ciprodex 0.3-0.1 % Otic Suspension Ciprodex 0.3-0.1 % Otic S uspension 2018-07-21 00:00:00 Yes MARKIE BARRERA M.D. 3-4 drops to the a ffected ear BID [facility] acetaminophen (TYLENOL) 325 mg tablet 2015-05-24 12:12:54 Y es 650mg Take 650 mg by mouth Before meals as needed for Pain. [facility] traMADol (ULTRAM) 50 mg tablet 2015-04-05 00:00:00 Yes Otalgia of left ear 50mg Take 1 tablet by mouth every 6 hours as needed for Pain. [facility] naproxen (NAPROSYN) 375 mg tablet 2014-02-16 00:00:00 Ye s Hearing loss 375mg Take 1 tablet by mouth 2 times daily (with meals). [facility] HYDROcodone-acetaminophen (NORCO) 5-325 mg tablet 2013-11-20 00:00:00 Yes Hearing loss 2{tbl} Take 2 tablets by mouth every 4 hours as needed for Pain. [facility] ibuprofen (MOTRIN) 800 mg tablet 2013-07-07 00:00:00 Yes Otorrhea 800mg Take 1 tablet by mouth every 8 hours as needed for Pain. [facility] Immunizations Ordered Immunization Name Filled Immunization Name Date Status Comments Source Influenza Vaccine 2012-12-18 00:00:00 Completed [facility] Vital Signs Vital Name Observation Time Observation Value Comments Source BP Systolic 2019-01-22 11:01:00 143 mm[Hg] Location: [place]; Pos[place] on: Sitting [facility] BP Diastolic 2019-01-22 11:01:00 81 mm[Hg] Location: [place]; [place] on: Sitting [facility] Height 2019-01-22 11:01:00 70 [in_us] [facility] Weight 2019-01-22 11:01:00 205.5625 [lb_av] [facility] Body Mass Index Calculated 2019-01-22 11:01:00 29.5 kg/m2 [facility] Heart Rate 2019-01-22 11:01:00 84 /min [facility] Weight 2018-11-18 16:07:00 201.3125 [lb_av] [facility] Body Mass Index Calculated 2018-11-18 16:07:00 28.89 kg/m2 [facility] Height 2018-11-18 16:07:00 70 [in_us] [facility] BP Systolic 2018-07-17 10:51:00 127 mm[Hg] Location: [place]; Pos[place] on: Sitting [facility] BP Diastolic 2018-07-17 10:51:00 74 mm[Hg] Location: [place]; [place] on: Sitting [facility] Height 2018-07-17 10:51:00 70 [in_us] [facility] Weight 2018-07-17 10:51:00 204.8 [lb_av] [facility] Body Mass Index Calculated 2018-07-17 10:51:00 29.39 kg/m2 [facility] Heart Rate 2018-07-17 10:51:00 77 /min [facility] BP Systolic 2018-02-27 13:29:00 127 mm[Hg] Location: [facility] [facility] BP Diastolic 2018-02-27 13:29:00 72 mm[Hg] Location: [facility] [facility] Height 2018-02-27 13:29:00 70 [in_us] [facility] Weight 2018-02-27 13:29:00 208 [lb_av] [facility] Body Mass Index Calculated 2018-02-27 13:29:00 29.85 kg/m2 [facility] Temperature 2018-02-27 13:29:00 98 [degF] Method: Oral [facility] Heart Rate 2018-02-27 13:29:00 65 /min Location: [place] Brachial Artery; [facility] BP Systolic 2017-11-07 14:58:00 129 mm[Hg] Location: [place]; [place] on: Sitting [facility] BP Diastolic 2017-11-07 14:58:00 70 mm[Hg] Location: [place]; [place] on: Sitting [facility] Height 2017-11-07 14:58:00 70 [in_us] [facility] Weight 2017-11-07 14:58:00 204.5 [lb_av] [facility] Body Mass Index Calculated 2017-11-07 14:58:00 29.34 kg/m2 [facility] Heart Rate 2017-11-07 14:58:00 65 /min [facility] BP Systolic 2017-10-31 10:30:00 135 mm[Hg] Location: [place]; Pos[place] on: Sitting [facility] BP Diastolic 2017-10-31 10:30:00 71 mm[Hg] Location: [place]; Pos[place] on: Sitting [facility] Height 2017-10-31 10:30:00 70 [in_us] [facility] Weight 2017-10-31 10:30:00 206 [lb_av] [facility] Body Mass Index Calculated 2017-10-31 10:30:00 29.56 kg/m2 [facility] Heart Rate 2017-10-31 10:30:00 65 /min [facility] BP Systolic 2017-08-08 13:30:00 112 mm[Hg] Location: LUE; Positi on: Sitting [facility] BP Diastolic 2017-08-08 13:30:00 66 mm[Hg] Location: LUE; Pos[place] on: Sitting [facility] Height 2017-08-08 13:30:00 70 [in_us] [facility] Weight 2017-08-08 13:30:00 209.125 [lb_av] [facility] Body Mass Index Calculated 2017-08-08 13:30:00 30.01 kg/m2 [facility] Heart Rate 2017-08-08 13:30:00 71 /min [facility] BP Systolic 2017-03-14 11:25:00 133 mm[Hg] Location: LUE; Positi on: Sitting [facility] BP Diastolic 2017-03-14 11:25:00 75 mm[Hg] Location: [place]; Positi on: Sitting [facility] Height 2017-03-14 11:25:00 70 [in_us] [facility] Weight 2017-03-14 11:25:00 203 [lb_av] [facility] Body Mass Index Calculated 2017-03-14 11:25:00 29.13 kg/m2 [facility] Heart Rate 2017-03-14 11:25:00 69 /min [facility] Respiration Rate 2017-03-14 11:25:00 16 /min [facility] Procedures Procedure Date / Time Performed Performing Clinician [facility] e X-ray of chest, two views 2018-11-12 00:00:00 LINNEA JACKSON [facility] Magnetic resonance imaging of lumbar spine without contrast 2018-04-15 00:00:00 MINERVA ISBELL [facility] [place] [id number] 2018-02-27 00:00:00 [facility] History of Ear Surgery [facility] History of Hernia Repair Inguinal Sliding [facility] History of Sinus Surgery [facility] Plan of Care Planned Activity Planned Date Details Comments Source Diagnostic Test Pending 2018-02-27 00:00:00 [place] [id number] [code = 31091] [facility] Diagnostic Test Pending 2018-02-27 00:00:00 [place] [id number] [code = 00794] [facility] Future Scheduled Test 2015-07-16 00:00:00 IMM Pneumococcal A ge 65 and Up [code = IMM Pneumococcal Age 65 and Up] [facility] Future Scheduled Test 2000 00:00:00 Screening for charlotte gnant neoplasm of colon (procedure) [code = 938295926] [facility] Encounters Start Date/Time End Date/Time Encounter Type [facility] Encounter ID Source 2019-01-22 10:30:00 2019-01-22 10:30:00 Appointment; MARKIE BARRERA M.D. BYRD, MICHAEL, M.D. [id number] 2018-11-18 14:30:00 2018-11-18 14:30:00 Appointment; MARKIE BARRERA M.D. BYRD, MICHAEL, M.D. [id number] [facility] 2018-11-12 04:22:00 2018-11-12 07:30:00 Departed Emergency Room [address] [facility] [id number] [facility] 2018-10-22 02:56:00 2018-10-22 04:55:00 Departed Emergency Room [address] [facility] [id number] [facility] 2018-08-28 13:00:00 2018-08-28 13:00:00 Appointment; MARKIE BARRERA M.D. BYRD, MICHAEL, M.D. [facility] [id number] [facility] 2018-07-17 10:30:00 2018-07-17 10:30:00 Appointment; MARKIE BARRERA M.D. BYRD, MICHAEL, M.D. [facility] [id number] [facility] 2018-05-19 08:50:00 2018-06-17 23:59:00 Discharged Recurring [facility] [id number] [facility] 2018-04-18 11:14:00 2018-05-18 23:59:00 Discharged Recurring [facility] [id number] [facility] 2018-03-25 10:06:00 2018-04-17 23:59:00 Discharged Recurring [facility] [id number] [facility] 2018-04-15 14:52:00 2018-04-15 14:52:00 Registered Clinic 3 MINERVA ISBELL [facility] [id number] [facility] 2018-02-27 13:00:00 2018-02-27 13:00:00 Appointment; MARKIE BARRERA M.D. BYRD, MICHAEL, M.D. [facility] Otorhinolaryngology [place] [address] [place] [address] Physicians 2017-11-07 14:30:00 2017-11-07 14:30:00 Appointment; MARKIE BARRERA M.D. BYRD, MICHAEL, M.D. [facility] [id number] [facility] 2017-10-31 10:30:00 2017-10-31 10:30:00 Appointment; MARKIE BARRERA M.D. BYRD, MICHAEL, M.D. [facility] [address] [id number] [facility] 2017-08-08 13:45:00 2017-08-08 13:45:00 Appointment; MARKIE BARRERA M.D. BYRD, MICHAEL, M.D. [facility] [id number] [facility] 2017-08-05 10:26:00 2017-08-05 10:26:00 Registered Emergency Room [facility] [id number] [facility] 2017-06-07 10:30:00 2017-06-07 10:30:00 Appointment; MARKIE BARRERA M.D. BYRD, MICHAEL, M.D. [facility] [id number] [facility] 2017-03-29 00:00:00 2017-03-29 00:00:00 Outpatient [facility] [id number] [facility] 2017-03-14 11:00:00 2017-03-14 11:00:00 Appointment; MARKIE BARRERA M.D. BYRD, MICHAEL, M.D. [facility] [id number] [facility] 2016-12-26 11:13:40 2016-12-26 11:13:40 Outpatient [facility] [id number] [facility] 2016-12-26 11:05:25 2016-12-26 11:05:25 Outpatient [facility] [id number] [facility] 2016-12-07 09:30:00 2016-12-07 09:30:00 Appointment; MARKIE BARRERA M.D. BYRD, MICHAEL, M.D. [facility] [id number] [facility] 2016-10-11 14:04:40 2016-10-11 14:04:40 Outpatient [facility] [id number] [facility] 2016-03-23 15:45:00 2016-03-23 15:45:00 Appointment; MARKIE BARRERA M.D. BYRD, MICHAEL, M.D. [facility] [id number] [facility] 2015-09-30 11:00:00 2015-09-30 11:00:00 Appointment; MARKIE BARRERA M.D. BYRD, MICHAEL, M.D. [facility] UTP [id number] [facility] 2015-03-25 10:30:00 2015-03-25 10:30:00 Appointment; MARKIE BARRERA M.D. BYRD, MICHAEL, M.D. [facility] UTP [id number] [facility] Results Test Description Test Time Test Comments Results Result Comments Source CHEST 2 VIEWS 2018-11-12 06:03:00 [place] [address] Patient Name: GIGI GOMEZ MR #: [id number] : 1950 Age/Sex: 68/M Req #: [id number] Adm Physician: Ordered by: MARKIE JACKSON MD Report #: [id number] Location: ER Room/Bed: Procedure: [id number] DX/CHEST 2 VIEWS Exam Date: 11/12/18 Exam Time: 537 REPORT STATUS: Signed EXAMINATION: CHEST 2 VIEWS INDICATION: [id number] COMPARISON: 10/22/2018 FINDINGS: PA and lateral views TUBES and LINES: None. LUNGS: Lungs are well inflated. There is no evidence of pneumonia or pulmonary edema. Mild left basilar atelectasis/scarring. PLEURA: No pleural effusion or pneumothorax. HEART AND MEDIASTINUM: The cardiomediastinal silhouette is unremarkable. BONES AND SOFT TISSUES: No acute osseous lesion. Soft tissues are unremarkable. UPPER ABDOMEN: No free air under the diaphragm. IMPRESSION: No acute thoracic abnormality. Signed by: Dr. Ross Sun MD on 11/12/2018 6:05 AM Dictated By: ROSS SUN MD 4 Transcribed By: AMANDA on 11/12/18604 COPY TO: MARKIE JACKSON MD B-Type Natriuretic Peptide 2018-11-12 05:21:00 Test Item B-Type Natriuretic Peptide (test code = 46764-0) < 10.0 0-100 [facility] (PE/DVT)2018-11-12 05:12:00* Test Item Value Reference Range Interpretation Comments D-Dimer Quantitative (PE/DVT) (test code = 29317-0) 0.39 0. 00-0.45 [facility]ine Kinase [id number] 05:12:00* Test Item Value Reference Range Interpretation Comments Creatine Kinase MB (test code = 96893-8) 0.80 0-5.0 [facility] TexasTroponin [id number] 05:12:00* Test Item Value Reference Range Interpretation Comments Troponin I (test code = UUZ8710) 0.005 0-0.300 [facility] Enoar4408-14-13 05:11:00* Test Item Value Reference Range Interpretation Comments Sodium Level (test code = 2951-2) 137 136-145 [facility]Potassium Aexkw5750-34-22 05:11:00* Test Item Value Reference Range Interpretation Comments Potassium Level (test code = 2823-3) 4.4 3.5-5.1 [facility] TexasChloride Hdsaz0107-93-30 05:11:00* Test Item Value Reference Range Interpretation Comments Chloride Level (test code = 2075-0) 100 98-107 [facility] TexasCarbon Dioxide Qgaew3488-39-71 05:11:00* Test Item Value Reference Range Interpretation Comments Carbon Dioxide Level (test code = 2028-9) 28 22-29 [facility] TexasAnion Pwu2377-06-49 05:11:00* Test Item Value Reference Range Interpretation Comments Anion Gap (test code = 56235-4) 13.4 8-16 [facility] TexasBlood Urea Jwmddzzz3510-81-64 05:11:00* Test Item Value Reference Range Interpretation Comments Blood Urea Nitrogen (test code = 3094-0) 16 7-26 [facility] TexasCreatinine2019-09-25 05:11:00* Test Item Value Reference Range Interpretation Comments Creatinine (test code = 2160-0) 0.84 0.72-1.25 [facility] TexasBUN/Creatinine Kkbri1374-96-64 05:11:00* Test Item Value Reference Range Interpretation Comments BUN/Creatinine Ratio (test code = 3097-3) 19 6-25 [facility] TexasEstimat Glomerular Filtration Rate 2018-11-12 05:11:00* Test Item Value Reference Range Interpretation Comments Estimat Glomerular Filtration Rate (test code = 443376918) > 60 >60 Ranges were taken from the National Kidney Disease Education Program and the [facility] [employer] literature.Reference ranges:60 or greater: Lwjrof13-36 ( for 3 consecutive months): Chronic kidney disease 15 or less: Kidney failureAdventHealth Central TexasGlucose Ahtsq0232-81-96 05:11:00* Test Item Value Reference Range Interpretation Comments Glucose Level (test code = SNX3300) 137 74-118 H [facility] TexasCalcium Knjok5165-26-84 05:11:00* Test Item Value Reference Range Interpretation Comments Calcium Level (test code = 53613-0) 9.5 8.4-10.2 [facility] TexasTotal Lbjhwbkjy2799-25-62 05:11:00* Test Item Value Reference Range Interpretation Comments Total Bilirubin (test code = 1975-2) 0.8 0.2-1.2 [facility] TexasAspartate Amino Transf (AST/SGOT) 2018-11-12 05:11:00* Test Item Value Reference Range Interpretation Comments Aspartate Amino Transf (AST/SGOT) (test code = Aspartate Amino Transf (AST/SGOT)) 25 5-34 [facility] TexasAlanine Aminotransferase (ALT/SGPT) 2018-11-12 05:11:00* Test Item Value Reference Range Interpretation Comments Alanine Aminotransferase (ALT/SGPT) (test code = 1742-6) 29 0-55 [facility] Wljoruu6870-92-27 05:11:00* Test Item Value Reference Range Interpretation Comments Total Protein (test code = 2885-2) 6.6 6.5-8.1 [facility] TexasAlbumin2019-09-25 05:11:00* Test Item Value Reference Range Interpretation Comments Albumin (test code = 1751-7) 3.5 3.5-5.0 [facility] TexasGlobulin2019-09-25 05:11:00* Test Item Value Reference Range Interpretation Comments Globulin (test code = 89559-5) 3.1 2.3-3.5 [facility] TexasAlbumin/Globulin Pkcnz2145-09-63 05:11:00 * Test Item Value Reference Range Interpretation Comments Albumin/Globulin Ratio (test code = 1759-0) 1.1 0.8-2.0 [facility] TexasAlkaline Domqcfsoayd5789-05-97 05:11:00* Test Item Value Reference Range Interpretation Comments Alkaline Phosphatase (test code = 6768-6) 86 40-150 [facility] TexasCreatine Glurgy6181-19-90 05:11:00* Test Item Value Reference Range Interpretation Comments Creatine Kinase (test code = 2157-6) 52 30-200 [facility] TexasWhite Blood Tybpr5394-17-54 04:48:00* Test Item Value Reference Range Interpretation Comments White Blood Count (test code = 6690-2) 5.82 4.8-10.8 [facility] TexasRed Blood Yboup6631-31-63 04:48:00* Test Item Value Reference Range Interpretation Comments Red Blood Count (test code = 789-8) 4.71 4.3-5.7 [facility]Hemoglobin2019-09-25 04:48:00* Test Item Value Reference Range Interpretation Comments Hemoglobin (test code = 87320-6) 14.5 14.0-18.0 [facility] TexasHematocrit2019-09-25 04:48:00* Test Item Value Reference Range Interpretation Comments Hematocrit (test code = 4544-3) 42.5 38.2-49.6 [facility] TexasMean Corpuscular Vohsxs1867-79-58 04:48:00* Test Item Value Reference Range Interpretation Comments Mean Corpuscular Volume (test code = 787-2) 90.2 81-99 [facility] TexasMean Corpuscular Dudweywmjv1155-77-61 04:48:00* Test Item Value Reference Range Interpretation Comments Mean Corpuscular Hemoglobin (test code = 785-6) 30.8 28-32 [facility] TexasMean Corpuscular Hemoglobin Concent 2018-11-12 04:48:00* Test Item Value Reference Range Interpretation Comments Mean Corpuscular Hemoglobin Concent (test code = 786-4) 34.1 31-35 [facility] TexasRed Cell Distribution Dbwfu9179-27-12 04:48:00* Test Item Value Reference Range Interpretation Comments Red Cell Distribution Width (test code = 03458-7) 11.9 11.7 -14.4 [facility] TexasPlatelet Ctigs7637-14-07 04:48:00* Test Item Value Reference Range Interpretation Comments Platelet Count (test code = 777-3) 225 140-360 [facility] TexasNeutrophils (%) (Auto)2018-11-12 04:48:00 * Test Item Value Reference Range Interpretation Comments Neutrophils (%) (Auto) (test code = 95086-6) 46.7 38.7-80.0 [facility] TexasLymphocytes (%) (Auto)2018-11-12 04:48:00 * Test Item Value Reference Range Interpretation Comments Lymphocytes (%) (Auto) (test code = 736-9) 39.2 18.0-39.1 H [facility] TexasMonocytes (%) (Auto)2018-11-12 04:48:00* Test Item Value Reference Range Interpretation Comments Monocytes (%) (Auto) (test code = 5905-5) 9.8 4.4-11.3 [facility]Eosinophils (%) (Auto)2018-11-12 04:48:00 * Test Item Value Reference Range Interpretation Comments Eosinophils (%) (Auto) (test code = 713-8) 3.3 0.0-6.0 [facility] TexasBasophils (%) (Auto)2018-11-12 04:48:00* Test Item Value Reference Range Interpretation Comments Basophils (%) (Auto) (test code = 706-2) 0.7 0.0-1.0 [facility] TexasIM GRANULOCYTES %2018-11-12 04:48:00* Test Item Value Reference Range Interpretation Comments IM GRANULOCYTES % (test code = IM GRANULOCYTES %) 0.3 0.0- 1.0 [facility] TexasNeutrophils # (Auto)2018-11-12 04:48:00* Test Item Value Reference Range Interpretation Comments Neutrophils # (Auto) (test code = 751-8) 2.7 2.1-6.9 [facility] TexasLymphocytes # (Auto)2018-11-12 04:48:00* Test Item Value Reference Range Interpretation Comments Lymphocytes # (Auto) (test code = 91694-0) 2.3 1.0-3.2 [facility] TexasMonocytes # (Auto)2018-11-12 04:48:00* Test Item Value Reference Range Interpretation Comments Monocytes # (Auto) (test code = 742-7) 0.6 0.2-0.8 [facility] TexasEosinophils # (Auto)2018-11-12 04:48:00* Test Item Value Reference Range Interpretation Comments Eosinophils # (Auto) (test code = 711-2) 0.2 0.0-0.4 [facility]Basophils # (Auto)2018-11-12 04:48:00* Test Item Value Reference Range Interpretation Comments Basophils # (Auto) (test code = 704-7) 0.0 0.0-0.1 [facility] TexasAbsolute Immature Granulocyte (auto 2018-11-12 04:48:00* Test Item Value Reference Range Interpretation Comments Absolute Immature Granulocyte (auto (shanika t code = Absolute Immature Granulocyte (auto) 0.02 0-0.1 [facility] Natriuretic Aontxxt5707-96-40 04:34:00* Test Item Value Reference Range Interpretation Comments B-Type Natriuretic Peptide (test code = 28377-4) < 10.0 0-100 [facility] TexasCreatine Kinase [id number] 04:21:00* Test Item Value Reference Range Interpretation Comments Creatine Kinase MB (test code = 02948-0) 0.30 0-5.0 [facility]Troponin [id number] 04:21:00* Test Item Value Reference Range Interpretation Comments Troponin I (test code = MEW1394) < 0.001 0-0.300 [facility] Qwglp4971-79-76 04:13:00* Test Item Value Reference Range Interpretation Comments Sodium Level (test code = 2951-2) 137 136-145 [facility]Potassium Lsljk1530-44-30 04:13:00* Test Item Value Reference Range Interpretation Comments Potassium Level (test code = 2823-3) 3.6 3.5-5.1 [facility] TexasChloride Rtshl0591-30-56 04:13:00* Test Item Value Reference Range Interpretation Comments Chloride Level (test code = 2075-0) 100 98-107 [facility] TexasCarbon Dioxide Jzonv9795-91-65 04:13:00* Test Item Value Reference Range Interpretation Comments Carbon Dioxide Level (test code = 2028-9) 27 -29 [facility] TexasAnion Pps1480-13-17 04:13:00* Test Item Value Reference Range Interpretation Comments Anion Gap (test code = 06155-1) 13.6 8-16 [facility] TexasBlood Urea Pirpjnek8569-21-65 04:13:00* Test Item Value Reference Range Interpretation Comments Blood Urea Nitrogen (test code = 3094-0) 10 7-26 [facility] TexasCreatinine2019-09-04 04:13:00* Test Item Value Reference Range Interpretation Comments Creatinine (test code = 2160-0) 0.81 0.72-1.25 [facility] TexasBUN/Creatinine Bvdlb0687-06-40 04:13:00* Test Item Value Reference Range Interpretation Comments BUN/Creatinine Ratio (test code = 3097-3) 12 6-25 [facility] TexasEstimat Glomerular Filtration Rate 2018-10-22 04:13:00* Test Item Value Reference Range Interpretation Comments Estimat Glomerular Filtration Rate (test code = 533117344) > 60 >60 Ranges were taken from the National Kidney Disease Education Program and the [facility] [employer] literature.Reference ranges:60 or greater: Nhjufb41-24 ( for 3 consecutive months): Chronic kidney disease 15 or less: Kidney failureAdventHealth Central TexasGlucose Lxkhz7516-41-85 04:13:00* Test Item Value Reference Range Interpretation Comments Glucose Level (test code = IGE7384) 142 74-118 H [facility] TexasCalcium Rgmsz6314-00-00 04:13:00* Test Item Value Reference Range Interpretation Comments Calcium Level (test code = 91617-3) 10.3 8.4-10.2 H [facility] TexasTotal Odelaumgs4960-33-22 04:13:00* Test Item Value Reference Range Interpretation Comments Total Bilirubin (test code = 1975-2) 0.9 0.2-1.2 [facility] TexasAspartate Amino Transf (AST/SGOT) 2018-10-22 04:13:00* Test Item Value Reference Range Interpretation Comments Aspartate Amino Transf (AST/SGOT) (test code = Aspartate Amino Transf (AST/SGOT)) 19 5-34 [facility] TexasAlanine Aminotransferase (ALT/SGPT) 2018-10-22 04:13:00* Test Item Value Reference Range Interpretation Comments Alanine Aminotransferase (ALT/SGPT) (test code = 1742-6) 24 0-55 [facility] TexasTotal Lctgidn3020-31-74 04:13:00* Test Item Value Reference Range Interpretation Comments Total Protein (test code = 2885-2) 6.9 6.5-8.1 [facility] TexasAlbumin2019-09-04 04:13:00* Test Item Value Reference Range Interpretation Comments Albumin (test code = 1751-7) 3.8 3.5-5.0 [facility] TexasGlobulin2019-09-04 04:13:00* Test Item Value Reference Range Interpretation Comments Globulin (test code = 63523-1) 3.1 2.3-3.5 [facility] TexasAlbumin/Globulin Vfqdg9388-14-28 04:13:00 * Test Item Value Reference Range Interpretation Comments Albumin/Globulin Ratio (test code = 1759-0) 1.2 0.8-2.0 [facility] TexasAlkaline Ckgfyzuefjt9354-81-99 04:13:00* Test Item Value Reference Range Interpretation Comments Alkaline Phosphatase (test code = 6768-6) 89 40-150 [facility] TexasCreatine Amdvre4455-52-94 04:13:00* Test Item Value Reference Range Interpretation Comments Creatine Kinase (test code = 2157-6) 91 30-200 [facility] TexasD-Dimer Quantitative (PE/DVT)2018-10-22 04:05:00* Test Item Value Reference Range Interpretation Comments D-Dimer Quantitative (PE/DVT) (test code = 99100-3) 0.44 0. 00-0.45 [facility] TexasCHEST SINGLE (PORTABLE)2018-10-22 03:53:00 [facility] [address] [address] Patient Name: GIGI GOMEZ MR #: [id number] : 1950 Age/Sex: 68/M Req #: [id number] Adm Physician: Ordered by: MARKIE JACKSON MD Report #: [id number] Location: ER Room/Bed: Procedure: DX/CHEST SINGLE (PORTABLE) Exam Date: 10/22/18 Exam Time: 324 REPORT STATUS: S igned EXAMINATION: CHEST SINGLE (PORTABLE) COMPARISON: None IN DICATION: SOB [id number] Y DISCUSSION: Frontal view of the chest obtained at 0336 hours. Images obtained through a back brace. H EART AND MEDIASTINUM: The heart is normal in size. The aorta is mildly tortuo us. LINES: None. LUNGS: The lungs are well inflated and clear. No pneumonia or pulmonary edema. PLEURA: No pleural effusion or pneumothorax. BONES AND SOFT TISSUES: No focal osseous lesion. The soft tissues are nor mal. IMPRESSION: No acute cardiopulmonary disease. Signed by: Dr. Marbin Sainz MD on 10/22/2018 3:54 AM Dictated By: ELMA Zazueta 3 Transcribed By: AMANDA on 10/22/18353 COPY TO: MARKIE JACKSON MD White Blood Vwrwf7536-78-62 03:50:00* Test Item Value Reference Range Interpretation Comments White Blood Count (test code = 6690-2) 4.80 4.8-10.8 [facility] Mrhin2029-32-70 03:50:00* Test Item Value Reference Range Interpretation Comments Red Blood Count (test code = 789-8) 4.69 4.3-5.7 [facility]Hemoglobin2019-09-04 03:50:00* Test Item Value Reference Range Interpretation Comments Hemoglobin (test code = 67176-9) 14.7 14.0-18.0 [facility] TexasHematocrit2019-09-04 03:50:00* Test Item Value Reference Range Interpretation Comments Hematocrit (test code = 4544-3) 41.9 38.2-49.6 [facility] TexasMean Corpuscular Uxaazd7676-65-89 03:50:00* Test Item Value Reference Range Interpretation Comments Mean Corpuscular Volume (test code = 787-2) 89.3 81-99 [facility] TexasMean Corpuscular Miyoinvjxr9062-99-07 03:50:00* Test Item Value Reference Range Interpretation Comments Mean Corpuscular Hemoglobin (test code = 785-6) 31.3 28-32 [facility] TexasMean Corpuscular Hemoglobin Concent 2018-10-22 03:50:00* Test Item Value Reference Range Interpretation Comments Mean Corpuscular Hemoglobin Concent (test code = 786-4) 35.1 31-35 H [facility] TexasRed Cell Distribution Cbyeo0831-74-97 03:50:00* Test Item Value Reference Range Interpretation Comments Red Cell Distribution Width (test code = 23010-2) 12.0 11.7 -14.4 [facility] TexasPlatelet Ooeyu0939-66-04 03:50:00* Test Item Value Reference Range Interpretation Comments Platelet Count (test code = 777-3) 190 140-360 [facility] TexasNeutrophils (%) (Auto)2018-10-22 03:50:00 * Test Item Value Reference Range Interpretation Comments Neutrophils (%) (Auto) (test code = 59653-6) 50.5 38.7-80.0 [facility] TexasLymphocytes (%) (Auto)2018-10-22 03:50:00 * Test Item Value Reference Range Interpretation Comments Lymphocytes (%) (Auto) (test code = 736-9) 35.4 18.0-39.1 [facility] TexasMonocytes (%) (Auto)2018-10-22 03:50:00* Test Item Value Reference Range Interpretation Comments Monocytes (%) (Auto) (test code = 5905-5) 9.4 4.4-11.3 [facility] TexasEosinophils (%) (Auto)2018-10-22 03:50:00 * Test Item Value Reference Range Interpretation Comments Eosinophils (%) (Auto) (test code = 713-8) 3.5 0.0-6.0 [facility]Basophils (%) (Auto)2018-10-22 03:50:00* Test Item Value Reference Range Interpretation Comments Basophils (%) (Auto) (test code = 706-2) 0.6 0.0-1.0 [facility] TexasIM GRANULOCYTES %2018-10-22 03:50:00* Test Item Value Reference Range Interpretation Comments IM GRANULOCYTES % (test code = IM GRANULOCYTES %) 0.6 0.0- 1.0 [facility] TexasNeutrophils # (Auto)2018-10-22 03:50:00* Test Item Value Reference Range Interpretation Comments Neutrophils # (Auto) (test code = 751-8) 2.4 2.1-6.9 [facility] TexasLymphocytes # (Auto)2018-10-22 03:50:00* Test Item Value Reference Range Interpretation Comments Lymphocytes # (Auto) (test code = 17784-6) 1.7 1.0-3.2 [facility] TexasMonocytes # (Auto)2018-10-22 03:50:00* Test Item Value Reference Range Interpretation Comments Monocytes # (Auto) (test code = 742-7) 0.5 0.2-0.8 [facility] TexasEosinophils # (Auto)2018-10-22 03:50:00* Test Item Value Reference Range Interpretation Comments Eosinophils # (Auto) (test code = 711-2) 0.2 0.0-0.4 [facility]Basophils # (Auto)2018-10-22 03:50:00* Test Item Value Reference Range Interpretation Comments Basophils # (Auto) (test code = 704-7) 0.0 0.0-0.1 [facility] TexasAbsolute Immature Granulocyte (auto 2018-10-22 03:50:00* Test Item Value Reference Range Interpretation Comments Absolute Immature Granulocyte (auto (shanika t code = Absolute Immature Granulocyte (auto) 0.03 0-0.1 [facility]- XR SPINE 1 V SPEC [id number] 09:53:00Patient Name: GIGI MONROE Unit No: [id number] EXAMS: CPT CODE: [id number] XR SPINE 1 V SPEC LEVEL [id number] Examination: Single lateral intraoperative view of the lumbar spine Location code: S17 Comparison: None Discussion: Clinical history is remarkable for lumbar laminectomy. Single lateral view demonstrates a probe near the posterior elements of L5-S1. Alignment is anatomic, diminished disc height noted at L5-S1. Impression: 1. Please refer the operative report. at 0953 Reported and signed by: REE CHRISTINE M.D. CC: Abundio Mccain MD Technologist: Sai Weston Time: DAP (Gy m2): Air Kerma (mGy): Trscr Dt/Tm: 10/04/2018 (0953) by:[email or web address] Printed Date/Time: 10/04/2018 (0956) Name: GIGI MONROE [facility] Phys: Abundio Arguello MD [address] : 1950 Age: 68 Sex: [place] [address] Loc: P.0575 1 Exam Date: 10/02/2018 Status: ADM IN PH: FAX: PAGE 1 Signed Report SURGICAL [id number] 16:56:00 RUN DATE: 10/03/18 [facility] *LIVE* PAGE 1 RUN TIME: 1655 Specimen Inqui ry RUN USER: INTERFACE PATIENT: GIGI MONROE ACCT #: B [id number] LOC: DanialRamesh HALL B U #: [id number] AGE/SX: 68/M ROOM: [facility] RE10/02/18[facility] DR: Abundio Mccain MD : [birth year] BED: 1 DIS: STATUS: ADM Nico TLOC: SPEC #: [id number] RECD: 10/02/18 STATUS: RUSSELL REDavion #: [id number] ENZO: 10/02/[address]: Abundio Mccain MD ENTERED: 10/02/18 SP TYPE: SURG OTHR DR: Dom Arcos MD ORDERED: PATHGM3, PATH SPEC, DECAL, H E STAIN HISTOLOGY: TISSUE ID BLK PCS YANA LEV / PROCEDURE DISPOSITION ____ ___ ___ ___ ___ INVERTEBRAL DIS A 1 1 TISSUES: A. INVERTEBRAL DISC - Lumbar Fiive-Sacral One Disc CLINICAL HISTORY Lumbar Disc Displacement, Radiculopathy, Ba ck Pain FINAL DIAGNOSIS INTERVERTEBRAL DISC, LUMBAR 5-SACRAL 1, DISCE CTOMY: - Fibrocartilaginous tissue with degenerative changes and focal microca lcifications, consistent with intervertebral disc. GROSS DESCRIPTION LUMBAR 5-SACRAL 1 DISC: The specimen is received in formalin labeled with the patient's demographic information and "lumbar 5-sacral 1 disc". It consists of many irregular arcos-white to pale pink soft tissue fragments measuring 4 x 4 x 1.3 cm in aggregate. No discrete lesions are seen. Bed Placement Coordinator sections are submitted in a single cassette. ENGINEHOUSE BRAKEMAN/eb MICROSCOPIC DESCRIPTION No malignancy is identified. Signed SIGNATURE ON FILE Janey Russell 10/03/18 1656 END OF REPORT PROTHROMBIN [id number] 11:14:00* Test Item Value Reference Range Interpretation Comments PROTHROMBIN TIME PATIENT (test code = PTP) 11.4 SECONDS 10.3-12.9 N INTERNATIONAL NORMAL RATIO (test code = INR) 0.98 INR UNIT 0.9-1.11 N The INR is useful only for monitoring anticoagulant therapy.It may be unreliable in the initial phase of antigoagulationand in unstable patients. Indication for Anticoagulation Recommended INR 1. Prevention of venous thomboembolism 2.0-3.0in high-risk patients; treatment of venousthrombosis and pulmonary embolism aftera course of heparin; prevention of systemicembolism in a variety of conditions, including atrial fibrillation and prothetic tissue heart valves, 2. Prosthetic mechanical heart valves; 2.5-3.5recurrent systemic embolism. THROMBOPLASTIN TIME [id number] 11:14:00* Test Item Value Reference Range Interpretation Comments THROMBOPLASTIN TIME PARTIAL (test code = PTT) 33.0 SECONDS 26.0-35. 9 N INTERPRETATIVE DATA:Therapeutic range: Unfractionated heparin:47 - 71 seconds Argatroban:1.5 to 3 times the baseline PTT COMPREHENSIVE METABOLIC [id number] 10:54:00* Test Item Value Reference Range Interpretation Comments SODIUM (test code = NA) 141 MMOL/L 136-143 N POTASSIUM (test code = K) 4.4 MMOL/L 3.5-5.1 N CHLORIDE (test code = CL) 104 MMOL/L 98-107 N CARBON DIOXIDE (test code = CO2) 25 mmol/L 24-31 N GLUCOSE (test code = GLU) 159 mg/dL 70-104 H BLOOD UREA NITROGEN (test code = BUN) 11.2 MG/DL 7.0-21.0 N GLOMERULAR FILTRATION RATE (test code = GFR) >=60 max estimate >60 The estimated glomerular filtration rate is computed usingpatient race, age (>18), sex, and serum creatinine. If anyof the needed data elements are missing the Laboratory cannot compute an estimation of the glomerular filtration rate. CREATININE (test code = CREAT) 0.8 mg/dL 0.8-1.5 N TOTAL PROTEIN (test code = PROT) 6.7 g/dL 6.3-8.3 N ALBUMIN (test code = ALB) 4.1 G/DL 3.5-5.0 N CALCIUM (test code = CA) 9.6 mg/dL 8.8-10.2 N BILIRUBIN TOTAL (test code = BILT) 0.5 mg/dL 0.2-1.0 N SGOT/AST (test code = AST) 19 IU/L 10-34 N SGPT/ALT (test code = ALT) 25 U/L 10-44 N ALKALINE PHOSPHATASE (test code = ALKP) 90 U/L 45-120 N LIPID PROFILE (CORONARY RISK)2018-09-26 10:54:00* Test Item Value Reference Range Interpretation Comments TRIGLYCERIDES (test code = TRIG) 338 mg/dL 35-160 H CHOLESTEROL (test code = CHOL) 216 mg/dL 0-200 H HDL CHOLESTEROL (test code = HDL) 47 mg/dL 35-55 N LIPOPROTEIN LDL (test code = LDLC) 102 MG/DL 0-99 H INTERPRETATIVE DATA:LDL Cholesterol: Reference RangesOptimal: <100 mg/dLNear Optimal: 100 -129 mg/dLBorderline High: 130 - 159 mg/dLHigh: 160 - 189 mg/dLVery High: = or > 190 mg/dL CORONARY RISK FACTOR (test code = RISK) 4.60 CHOL/HDL RISK MALE: 1/2 AVG 3.43 FEMALE: 1/2 AVG 3.27 AVG 4.97 AVG 4.44 2X AVG 9.55 2X AVG 7.05 3X AVG 23.39 3X AVG 11.04~~~~~~~~~~~~~~~~~~~~~~~~~~~~~~~~~~~~~~~~~~~~~~~~~~~~~~~~~~~~National Cholesterol Education (NCEP) Guidelines:~~~~~~~~~~~~~~~~~~~~~~~~~~~~~~~~~~~~~~~~~~~~~~~~~~~~~~~~~~~~ HDL Cholesterol<40mg/dL: HDL Cholesterol (Major risk factor for CHD)>60mg/dL: HDL Cholesterol (Negative risk factor for CHD)40-59mg/dL: Borderline Risk LDL Cholesterol<100mg/dL: Desirable LDL-C uinpjwzouvcxh870-157gn/dL: Borderline High Risk LDL-C itevedkvomuhu997-041jj/dL: High risk LDL-C concentration HDL-LDL Cholesterol is affected by a number of factors suchas smoking, age and sex.~~~~~~~~~~~~~~~~~~~~~~~~~~~~~~~~~~~~~~~~~~~~~~~~~~~~~~~~~~~~ URINALYSIS [id number] 10:49:00* Test Item Value Reference Range Interpretation Comments UA COLOR (test code = COLU) YELLOW DISCRIPT YELLOW UA APPEARANCE (test code = APPU) CLEAR DISCRIPT CLEAR UA GLUCOSE DIPSTICK (test code = DGLUU) NEGATIVE mg/dL NEGATIVE UA BILIRUBIN DIPSTICK (test code = BILU) NEGATIVE NEGATIVE UA KETONE DIPSTICK (test code = KETU) NEGATIVE mg/dL NEGATIVE UA SPECIFIC GRAVITY (test code = SGU) >=1.030 1.005-1.030 UA BLOOD DIPSTICK (test code = TYRA) NEGATIVE NEGATIVE UA PH DIPSTICK (test code = BK) 5.5 5.0-9.0 UA PROTEIN DIPSTICK (test code = PROU) NEGATIVE mg/dL NEGATIVE UA UROBILINOGEN DIPSTICK (test code = URO) 0.2 mg/dL 0.2-1.0 UA NITRITE DIPSTICK (test code = JUAN LUIS) NEGATIVE NEGATIVE UA LEUKOCYTE ESTERASE DIPSTICK (test code = LEUU) NEGATIVE NEGA TIVE CBC W/AUTO [id number] 10:48:00* Test Item Value Reference Range Interpretation Comments WHITE BLOOD CELL (test code = WBC) 5.1 x10 3/uL 4.8-10.8 N RED BLOOD CELL (test code = RBC) 4.91 x10 6/uL 4.70-6.10 N HEMOGLOBIN (test code = HGB) 15.3 g/dL 14.5-20 N HEMATOCRIT (test code = HCT) 44.9 % 42.0-52.0 N MEAN CELL VOLUME (test code = MCV) 91.4 fL 80.0-94.0 N MEAN CELL HGB (test code = MCH) 31.2 pg 27-31 H MEAN CELL HGB CONCENTRATION (test code = MCHC) 34.1 G/DL 33-36.5 N RED CELL DISTRIBUTION WIDTH (test code = RDW) 12.4 % 12.9-16. 9 L PLATELET COUNT (test code = PLT) 197 150-440 N MEAN PLATELET VOLUME (test code = MPV) 10.9 fL 8.9-12.4 N NEUTROPHIL % (test code = NT%) 58.5 % 42.2-75.2 N LYMPHOCYTE % (test code = LY%) 29.4 % 20.5-51.1 N MONOCYTE % (test code = MO%) 8.3 % 1.7-9.3 N EOSINOPHIL % (test code = EO%) 2.8 % 0.0-7.0 N BASOPHIL % (test code = BA%) 0.6 % 0-2.5 N NEUTROPHIL # (test code = NT#) 2.96 x10 3/uL 1.80-7.70 N LYMPHOCYTE # (test code = LY#) 1.49 x10 3/uL 1.00-4.80 N MONOCYTE # (test code = MO#) 0.42 x10 3/uL 0.00-0.80 N EOSINOPHIL # (test code = EO#) 0.14 x10 3/uL 0.00-0.45 N BASOPHIL # (test code = BA#) 0.03 x10 3/uL 0.0-0.20 N MRI SPINE LUMBAR [id number] 08:32:[address] [address] Patient Name: GIGI GOMEZ MR #: [id number] : 1950 Age/Sex: 67/M Req #: [id number] Adm Physician: Ordered by: MINERVA ISBELL MD Report #: [id number] Location: MRI Room/Bed: Procedure: [id number] MRI/MRI SPINE LUMBAR WO Exam Date: 04/15/18 Exam Ti me: 1518 REPORT STATUS: Signed M RI SPINE LUMBAR WO HISTORY: Low back pain; right leg pain COMPARISON: None. TECHNIQUE: Sagittal T1, sagittal T2, sagittal STIR, axial T2, lai nal T2, and axial proton density weighted images of the lumbar spine were obta ined without contrast. DISCUSSION: Number of non-rib bearing lumbar vertebral bodies: 5. Alignment: Normal lordosis. No scoliosis. Vertebrae: S mall nodular T1/T2 hyperintense lesion along the right L3 pedicle is likely a benign hemangioma. Otherwise, no definite evidence for fractures, infection or neoplasm. Conus medullaris: Normal, ends at L1. Cauda equina: No masses or arachnoiditis. Posterior paraspinal muscles: Well preserved. No signal abnor malities. Soft tissues: Mild bilateral renal pelviectasis is present. Mil d multilevel disc degeneration is present. T12-L1: Disc bulge without signi ficant canal or foraminal stenosis. L1-L2: Patent canal and foramina. L2-L3: Disc bulge without significant canal or foraminal stenosis. L3-L4: P atent canal and foramina. L4-L5: Mild bilateral foraminal stenoses due to d isc bulge and facet arthrosis. No significant canal stenosis. L5-S1: Appr oximately 6 mm right subarticular disc extrusion (with minimal inferior migrat ion) impinges upon the descending right S1 nerve root. No significant central canal stenosis. Moderate right and mild left foraminal stenoses due to asymmet hebert disc bulge and facet arthrosis. IMPRESSION: 1. Mild multilevel disc degeneration without significant canal stenosis. 2. Approximately 6 mm right L5-S1 subarticular disc extrusion impinges upon the descending right S1 nerve. 3. Multilevel bilateral lower lumbar degenerative foraminal stenoses - mod erate on the right at L5-S1. Signed by: Dr. Dony Tena M.D. on 04/16/19 8:40 AM Dictated By: DONY TENA MD 9 Transcribed By: AMANDA on 04/16/18839 COPY TO: MINERVA ISBELL MD
[2019-10-18 08:12] LABS: ALANINE AMINOTRANSFERASE 28 IU/L (0-55); ALBUMIN 3.5 g/dL (3.5-5.0); ALBUMIN/GLOBULIN RATIO 1.2 (0.8-2.0); ALKALINE PHOSPHATASE 69 IU/L (40-150); BLOOD UREA NITROGEN 13 mg/dL (7-26); BUN/CREATININE RATIO 13 (6-25); CALCIUM 8.7 mg/dL (8.4-10.2); CARBON DIOXIDE 20 mmol/L (22-29); CHLORIDE 106 mmol/L (98-107); CREATININE, SERUM 0.99 mg/dL (0.72-1.25); EST GLOMERULAR FILTRATION RATE > 60 ML/MIN (60-); GLUCOSE 269 mg/dL (74-118); SODIUM 138 mmol/L (136-145)
--- NOTE | 2019-10-18 08:20 | Diagnostic Imaging Report ---
EXAMINATION: CHEST SINGLE (PORTABLE) INDICATION: Shortness of breath and head trauma COMPARISON: Multiple prior radiographs including most recent on 11/12/2018. FINDINGS: TUBES and LINES: None. LUNGS: Low lung volumes and bronchovascular crowding No consolidations. There is bibasilar atelectasis. PLEURA: No pleural effusion or pneumothorax. HEART AND MEDIASTINUM: The cardiomediastinal silhouette is unremarkable. BONES AND SOFT TISSUES: No acute osseous lesion. Soft tissues are unremarkable. UPPER ABDOMEN: No free air under the diaphragm. IMPRESSION: Low lung volumes and bronchovascular crowding with bibasilar atelectasis. No radiographic evidence of an acute cardiopulmonary process. Signed by: Leslie Marinelli MD on 10/18/2019 8:17 AM
[2019-10-18] MEDS ORDERED: ULTRAM50 MG PO (08:36)
[2019-10-18] MEDS ORDERED: FIORINAL 50-321 EACH PO (08:36)
--- NOTE | 2019-10-18 08:51 | Diagnostic Imaging Report ---
Examination: CT head without contrast Clinical Indication: Headache; head injury. Technique: Transaxial noncontrast images from the skull base through the vertex were obtained. Sagittal and coronal reformatted images were done. Dose modulation, iterative reconstruction, and/or weight based adjustment of the mA/kV was utilized to reduce the radiation dose to as low as reasonably achievable. Comparison: None. Findings: Scalp: No abnormalities. Bones: Intact. No fractures. No blastic or lytic lesions. Brain sulci: Mild volume loss for patient's age. Ventricles: No hydrocephalus. Extra-axial space: No abnormalities. Parenchyma: There are patchy and confluent areas of low-attenuation within subcortical and periventricular white matter, nonspecific, but could represent microvascular ischemic disease. No masses, hemorrhage, or acute or chronic cortical based vascular insults. Suprasellar region: No abnormalities. Craniocervical junction: The foramen magnum is patent. No Chiari one malformation. Incidental findings: Atherosclerotic calcification of the cavernous and supraclinoid internal carotid arteries. Impression: 1. No acute intracranial finding. 2. Mild chronic microvascular ischemic change and volume loss. Signed by: Dr. Jenna Richard M.D. on 10/18/2019 8:48 AM
== END 2019-10-18 09:00 | disposition home or self-care (01) ==
LOC: ER 08:08
DX: S06.0X0A Concussion without loss of consciousness, initial encounter (principal); G44.309 Post-traumatic headache, unspecified, not intractable; W22.8XXA Striking against or struck by other objects, initial encounter; R73.9 Hyperglycemia, unspecified; I10 Essential (primary) hypertension; E78.5 Hyperlipidemia, unspecified; M54.9 Dorsalgia, unspecified; G89.29 Other chronic pain
CPT/HCPCS: 36415; 70450; 71045; 80053; 85025; 99284; J1200; J2765; J7030

== ENCOUNTER 2019-10-18 23:42 | Emergency (ER) | payer MEDICARE ==
[~2019-10-18] VITALS: Ht 162.6 cm; Wt 92.5 kg
[~2019-10-18 23:42] MED LIST: FIORINAL 50-321 EACH PO; ULTRAM50 MG PO
[2019-10-19] MEDS ORDERED: KETOROLAC TROMETHAMINE 60 MG/2 ML VIAL IM ONE (00:15)
--- NOTE | 2019-10-19 00:25 | Emergency Department Note ---
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 Historian: Patient Arrival Mode: Car Onset (how long ago): week(s) (3) Location: HEAD Quality: HEADACHE WITH NAUSEA Radiation: Reports non-radiation Severity: moderate Onset quality: sudden Duration (how long): week(s) (3) Timing of current episode: intermittent Progression: waxing and waning Chronicity: recurrent Context: Reports trauma/injury (HIT HEAD ON CAR DOOR 22 DAYS AGO); Denies recent illness, Denies recent surgery Relieving factors: none Exacerbating factors: none Associated symptoms: Reports nausea/vomiting, Reports other Treatments prior to arrival: none Past Medical/Family History Physician Review I have reviewed the patient's past medical and family history. Any updates have been documented here. Past Medical History Recent Fever: No Clinical Suspicion of Infectio: No New/Unexplained Change in Ment: No Past Medical History: Hypertension, Hyperlipedemia, Chronic Back Pain Past Surgical History: Hernia Repair Other Surgery: HERNIA X6 BACK SX Social History Smoking Cessation: Never Smoker Alcohol Use: None Any Illegal Drug Use: No Physically hurt or threatened: No Other Last Tetanus: UNK Any Pre-Existing Lines (PICC,: No Review of Systems Review of Systems Constitutional: Reports no symptoms EENTM: Reports no symptoms Cardiovascular: Reports no symptoms Respiratory: Reports no symptoms Gastrointestinal: Reports no symptoms Genitourinary: Reports no symptoms Musculoskeletal: Reports no symptoms Integumentary: Reports no symptoms Neurological: Reports as per HPI Psychological: Reports no symptoms Endocrine: Reports no symptoms Hematological/Lymphatic: Reports no symptoms Physical Exam Related Data Allergies: Coded Allergies: No Known Allergies (Unverified , 08/05/17) Triage Vital Signs Vital Signs Date Time Temp Pulse Resp B/P (MAP) Pulse Ox O2 Delivery O2 Flow Rate FiO2 10/18/19 23:50 98.1 72 18 152/78 99 Room Air Vital signs reviewed: Yes Physical Exam CONSTITUTIONAL Constitutional: Present well-developed, Present well-nourished; Absent distressed HENT HENT: Present normocephalic, Present atraumatic, Present oropharynx clear/moist, Present nose normal HENT L/R: Present left ext ear normal, Present right ext ear normal EYES Eyes: Reports PERRL, Reports conjunctivae normal NECK Neck: Present ROM normal PULMONARY Pulmonary: Present effort normal, Present breath sounds normal CARDIOVASCULAR Cardiovascular: Present regular rhythm, Present heart sounds normal, Present capillary refill normal, Present normal rate GASTROINTESTINAL Abdominal: Present soft, Present nontender, Present bowel sounds normal GENITOURINARY Genitourinary: Present exam deferred SKIN Skin: Present warm, Present dry MUSCULOSKELETAL Musculoskeletal: Present ROM normal NEUROLOGICAL Neurological: Present alert, Present oriented x 3, Present no gross motor or sensory deficits PSYCHOLOGICAL Psychological: Present mood/affect normal, Present judgement normal Assessment & Plan Medical Decision Making MDM PT WITH RECURRING HEADACHE SINCE HITTING HEAD 22 DAYS AGO, HAS HAD [address]S THAT ARE NEGATIVE ONE OF WHICH WAS DONE HERE YESTERDAY. TORADOL 60 MG IM ORDERED Reassessment Reassessment time: 00:44 Reassessment HEADACHE RESOLVED AT THIS TIME Assessment & Plan Final Impression: (1) Concussion (2) Post-traumatic headache Depart Disposition: HOME, SELF-CARE Last Vital Signs Date Time Temp Pulse Resp B/P (MAP) Pulse Ox O2 Delivery O2 Flow Rate FiO2 10/18/19 23:50 98.1 72 18 152/78 99 Room Air Home Meds Active Scripts Tramadol Hcl (ULTRAM) 50 Mg Tablet, 50 MG PO Q6HR PRN for Mild Pain (1-3) or Fe chente>100.8, #14 TAB Prov:SHIRLEY ZUNIGA DO 10/18/19 Butalbital/Aspirin/Caffeine (FIORINAL 50-325-40 MG CAPSULE) 1 Each Capsule, 1 TAB PO Q8HR PRN for HEADACHE, #30 Prov:SHIRLEY ZUNIGA DO 10/18/19 Medications in the ED Ketorolac Tromethamine 60 mg ONCE ONCE IM Last administered on 10/19/19at 00:12; Admin Dose 60 MG; Start 10/19/19 at 00:15; Stop 10/19/19 at 00:16; Status DC MARKIE JACKSON MD Oct 19, 2019 00:25
--- OUTSIDE RECORDS SUMMARY | 2019-10-19 00:41 | XMS REPORT | Continuity of Care Document ---
Author Author [facility] t Organization Formerly [facility] Address [address] [place] [address] Phone Unavailable Care Team Providers Care Finished Stock Inspector Name Role Phone HA EASTON, MD Rachele BEAN PCP Jaswant ZUNIGA Attphys Unavailable MARKIE BARRERA M.D. Attphys Unavailable Coleman JACKSON Attphys Unavailable MINERVA ISEBLL Attphys Unavailable Payers Payer Name Policy Type Policy Number Effective Date Expiration Date Jaswant fuentes [facility] Medicare Complete [id number] C [facility] [id number] [facility] [id number] I [facility] [id number] I [facility] Problems Condition Name Condition Details Condition Category Status Onset Date Resolution Date Last Treatment Date Treating Clinician Comments Source Impacted cerumen of left ear Impacted cerumen of left ear Disease Active 2016-10-11 00:00:00 [facility] ealth H/O mastoidectomy H/O mastoidectomy Disease Active 2013-06-15 00:00:00 [facility] Hearing loss Hearing loss Disease Active 2013-06-15 00:00:00 [facility] 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 Otalgia of left ear Otalgia of left ear Problem Active [facility] Impacted cerumen of left ear Impacted cerumen of left ear Problem Active [facility] Thyroid nodule Thyroid nodule Problem Active [facility] Chronic otitis externa Chronic otitis externa Problem Active [facility] Sensation of plugged ear on left side Sensation of plugged e ar on left side Problem Active [facility] Concussion Problem Active [facility] Post-traumatic headache Problem Active [facility] Allergies, Adverse Reactions, Alerts Allergy Name Allergy Type Status Severity Reaction(s) Onset Date Inacti ve Date Treating Clinician Comments Source No Known Allergies DA Active U 2018-10-02 00:00:00 [facility] No Known Allergies DA Active U 2018-09-26 00:00:00 [facility] Family History Family Member Diagnosis Comments Start Date Stop Date Source unknown Unknown Fam Hx [facility] Social History Social Habit Start Date Stop Date Quantity Comments Source Sex Assigned [facility] Alcohol intake 2016-12-26 00:00:00 2016-12-26 00:00:00 Current drinker of alcohol (finding) [facility] Smoking Status Start Date Stop Date Source Former smoker [facility] Never smoker [facility] Medications Ordered Medication Name Filled Medication Name Start Date Stop Da te Current Medication? Ordering Clinician Indication Dosage Frequency Signature (SIG) Comments Components Source Butalbital/Aspirin/Caffeine (Fiorinal 50-325-40 Mg Cap vin) 1 Each CAPSULE Butalbital/Aspirin/Caffeine (Fiorinal 50-325-40 Mg Capsule) 1 Each CAPSULE 2019-10-18 08:36:00 Yes 1 Every 8 Hours as n eeded for Headache [facility] Tramadol Hcl (Ultram) 50 Mg TABLET Tramadol Hcl (Ultram) 50 Mg TABLET 2019-10-18 08:36:00 Yes 50 Every 6 Ho urs as needed for Mild Pain (1-3) Or Fever>100.8 [facility] Ciprodex 0.3-0.1 % Otic Suspension Ciprodex 0.3-0.1 % Otic S uspension 2018-07-21 00:00:00 Yes MARKIE BARRERA M.D. 3-4 drops to the a ffected ear BID [facility] acetaminophen (TYLENOL) 325 mg tablet 2015-05-24 12:12:54 Y es 650mg Take 650 mg by mouth Before meals as needed for Pain. [facility] traMADol (ULTRAM) 50 mg tablet 2015-04-05 00:00:00 Yes Otalgia of left ear 50mg Take 1 tablet by mouth every 6 hours as needed for Pain. [facility] naproxen (NAPROSYN) 375 mg tablet 2014-02-16 00:00:00 Ye s Hearing loss 375mg Take 1 tablet by mouth 2 times daily (with meals). [facility] HYDROcodone-acetaminophen (NORCO) 5-325 mg tablet 2013-11-20 00:00:00 Yes Hearing loss 2{tbl} Take 2 tablets by mouth every 4 hours as needed for Pain. [facility] ibuprofen (MOTRIN) 800 mg tablet 2013-07-07 00:00:00 Yes Otorrhea 800mg Take 1 tablet by mouth every 8 hours as needed for Pain. [facility] Immunizations Ordered Immunization Name Filled Immunization Name Date Status Comments Source Influenza Vaccine 2012-12-18 00:00:00 Completed [facility] Vital Signs Vital Name Observation Time Observation Value Comments Source Weight 2019-10-18 07:32:00 204 [lb_av] [facility] BMI (Body Mass Index) 2019-10-18 07:32:00 35.0 kg/m2 [facility] BP Systolic 2019-01-22 11:01:00 143 mm[Hg] Location: ARISE; Positi on: Sitting [facility] BP Diastolic 2019-01-22 11:01:00 81 mm[Hg] Location: LUE; Positi on: Sitting [facility] Height 2019-01-22 11:01:00 70 [in_us] [facility] Weight 2019-01-22 11:01:00 205.5625 [lb_av] [facility] Body Mass Index Calculated 2019-01-22 11:01:00 29.5 kg/m2 [facility] Heart Rate 2019-01-22 11:01:00 84 /min [facility] Weight 2018-11-18 16:07:00 201.3125 [lb_av] [facility] Body Mass Index Calculated 2018-11-18 16:07:00 28.89 kg/m2 [facility] Height 2018-11-18 16:07:00 70 [in_us] [facility] BP Systolic 2018-07-17 10:51:00 127 mm[Hg] Location: CHARMAINE; Positi on: Sitting [facility] BP Diastolic 2018-07-17 10:51:00 74 mm[Hg] Location: GARY Positi on: Sitting [facility] Height 2018-07-17 10:51:00 70 [in_us] [facility] Weight 2018-07-17 10:51:00 204.8 [lb_av] [facility] Body Mass Index Calculated 2018-07-17 10:51:00 29.39 kg/m2 [facility] Heart Rate 2018-07-17 10:51:00 77 /min [facility] BP Systolic 2018-02-27 13:29:00 127 mm[Hg] Location: GARY [facility] BP Diastolic 2018-02-27 13:29:00 72 mm[Hg] Location: GARY [facility] Height 2018-02-27 13:29:00 70 [in_us] [facility] Weight 2018-02-27 13:29:00 208 [lb_av] [facility] Body Mass Index Calculated 2018-02-27 13:29:00 29.85 kg/m2 [facility] Temperature 2018-02-27 13:29:00 98 [degF] Method: Oral [facility] Heart Rate 2018-02-27 13:29:00 65 /min Location: L Brachial Artery; [facility] BP Systolic 2017-11-07 14:58:00 129 mm[Hg] Location: GARY Kaiser on: Sitting [facility] BP Diastolic 2017-11-07 14:58:00 70 mm[Hg] Location: LUE; Positi on: Sitting [facility] Height 2017-11-07 14:58:00 70 [in_us] [facility] Weight 2017-11-07 14:58:00 204.5 [lb_av] [facility] Body Mass Index Calculated 2017-11-07 14:58:00 29.34 kg/m2 [facility] Heart Rate 2017-11-07 14:58:00 65 /min [facility] BP Systolic 2017-10-31 10:30:00 135 mm[Hg] Location: LUE; Positi on: Sitting [facility] BP Diastolic 2017-10-31 10:30:00 71 mm[Hg] Location: ARISE; Positi on: Sitting [facility] Height 2017-10-31 10:30:00 70 [in_us] [facility] Weight 2017-10-31 10:30:00 206 [lb_av] [facility] Body Mass Index Calculated 2017-10-31 10:30:00 29.56 kg/m2 [facility] Heart Rate 2017-10-31 10:30:00 65 /min [facility] BP Systolic 2017-08-08 13:30:00 112 mm[Hg] Location: ARISE; Positi on: Sitting [facility] BP Diastolic 2017-08-08 13:30:00 66 mm[Hg] Location: ARISE; Positi on: Sitting [facility] Height 2017-08-08 13:30:00 70 [in_us] [facility] Weight 2017-08-08 13:30:00 209.125 [lb_av] [facility] Body Mass Index Calculated 2017-08-08 13:30:00 30.01 kg/m2 [facility] Heart Rate 2017-08-08 13:30:00 71 /min [facility] BP Systolic 2017-03-14 11:25:00 133 mm[Hg] Location: LUE; Positi on: Sitting [facility] BP Diastolic 2017-03-14 11:25:00 75 mm[Hg] Location: LUE; Positi on: Sitting [facility] Height 2017-03-14 11:25:00 70 [in_us] [facility] Weight 2017-03-14 11:25:00 203 [lb_av] [facility] Body Mass Index Calculated 2017-03-14 11:25:00 29.13 kg/m2 [facility] Heart Rate 2017-03-14 11:25:00 69 /min [facility] Respiration Rate 2017-03-14 11:25:00 16 /min [facility] Procedures Procedure Date / Time Performed Performing Clinician Sour e Computed tomography of brain without radiopaque contrast 2019-09 00:00:00 [facility] [place] [id number] 2018-02-27 00:00:00 [facility] History of Ear Surgery [facility] History of Hernia Repair Inguinal Sliding [facility] History of Sinus Surgery [facility] Plan of Care Planned Activity Planned Date Details Comments Source Diagnostic Test Pending 2018-02-27 00:00:00 [place] [id number] [code = 55949] [facility] Diagnostic Test Pending 2018-02-27 00:00:00 [place] [id number] [code = 37428] [facility] Future Scheduled Test 2015-07-16 00:00:00 IMM Pneumococcal A ge 65 and Up [code = IMM Pneumococcal Age 65 and Up] [facility] Future Scheduled Test 2000 00:00:00 Screening for charlotte gnant neoplasm of colon (procedure) [code = 433816413] [facility] Instructions Concussion/Head Injury - Adult [facility] Instructions Headache [facility] Encounters Start Date/Time End Date/Time Encounter Type Admission Type [facility] Care Department Encounter ID Source 2019-10-18 08:08:00 2019-10-18 09:00:00 Departed Emergency Room 1 SHIRLEY ZUNIGA [facility] [id number] [facility] 2019-01-22 10:30:00 2019-01-22 10:30:00 Appointment; MARKIE BARRERA M.D. BYRD, MICHAEL, M.D. [facility] Otorhinolaryngology [facility] [id number] [facility] 2018-11-18 14:30:00 2018-11-18 14:30:00 Appointment; MARKIE BARRERA M.D. BYRD, MICHAEL, M.D. [id number] 2018-11-12 04:22:00 2018-11-12 07:30:00 Departed Emergency Room 1 MARKIE JACKSON [facility] [id number] [facility] 2018-10-22 02:56:00 2018-10-22 04:55:00 Departed Emergency Room 1 MARKIE JACKSON [facility] [id number] [facility] 2018-08-28 13:00:00 2018-08-28 13:00:00 Appointment; MARKIE BARRERA M.D. BYRD, MICHAEL, M.D. [facility] [id number] [facility] 2018-07-17 10:30:00 2018-07-17 10:30:00 Appointment; MARKIE BARRERA M.D. BYRD, MICHAEL, M.D. [facility] [id number] [facility] 2018-05-19 08:50:00 2018-06-17 23:59:00 Discharged Recurring [facility] [id number] [facility] 2018-04-18 11:14:00 2018-05-18 23:59:00 Discharged Recurring [facility] [id number] [facility] 2018-03-25 10:06:00 2018-04-17 23:59:00 Discharged Recurring [facility] [id number] [facility] 2018-04-15 14:52:00 2018-04-15 14:52:00 Registered Clinic 3 MINERVA ISBELL [facility] [id number] [facility] 2018-02-27 13:00:00 2018-02-27 13:00:00 Appointment; MARKIE BARRERA M.D. BYRD, MICHAEL, M.D. [facility] [id number] [facility] 2017-11-07 14:30:00 2017-11-07 14:30:00 Appointment; MARKIE BARRERA M.D. BYRD, MICHAEL, M.D. [facility] [id number] [facility] 2017-10-31 10:30:00 2017-10-31 10:30:00 Appointment; MARKIE BARRERA M.D. BYRD, MICHAEL, M.D. [facility] [address] [id number] [facility] 2017-08-08 13:45:00 2017-08-08 13:45:00 Appointment; MARKIE BARRERA M.D. BYRD, MICHAEL, M.D. [facility] [id number] [facility] 2017-08-05 10:26:00 2017-08-05 10:26:00 Registered Emergency Room [facility] [id number] [facility] 2017-06-07 10:30:00 2017-06-07 10:30:00 Appointment; MARKIE BARRERA M.D. BYRD, MICHAEL, M.D. [facility] [id number] [facility] 2017-03-29 00:00:00 2017-03-29 00:00:00 Outpatient [facility] [id number] [facility] 2017-03-14 11:00:00 2017-03-14 11:00:00 Appointment; MARKIE BARRERA M.D. BYRD, MICHAEL, M.D. [facility] [id number] [facility] 2016-12-26 11:13:40 2016-12-26 11:13:40 Outpatient [facility] [id number] [facility] 2016-12-26 11:05:25 2016-12-26 11:05:25 Outpatient [facility] [id number] [facility] 2016-12-07 09:30:00 2016-12-07 09:30:00 Appointment; MARKIE BARRERA M.D. BYRD, MICHAEL, M.D. [facility] [id number] [facility] 2016-10-11 14:04:40 2016-10-11 14:04:40 Outpatient [facility] [id number] [facility] 2016-03-23 15:45:00 2016-03-23 15:45:00 Appointment; MARKIE BARRERA M.D. BYRD, MICHAEL, M.D. [facility] UTP [id number] [facility] 2015-09-30 11:00:00 2015-09-30 11:00:00 Appointment; MARKIE BARRERA M.D. BYRD, MICHAEL, M.D. [facility] UTP [id number] [facility] 2015-03-25 10:30:00 2015-03-25 10:30:00 Appointment; MARKIE BARRERA M.D. BYRD, MICHAEL, M.D. [facility] UTP [id number] [facility] Results Test Description Test Time Test Comments Results Result Comments Source CT BRAIN WO 2019-10-18 08:45:00 [place] [address] Patient Name: GIGI PETERSEN MR #: [id number] : 1950 Age/Sex: 69/M Req #: [id number] Adm Physician: Ordered by: SHIRLEY ZUNIGA DO Report #: [id number] Location: ER Room/Bed: Procedure: [id number] CT/CT BRAIN WO Exam Date: 10/18/19 Exam Time: 811 REPORT STATUS: Signed Examination: CT head without contrast Clinical Indication: Headache; head injury. Technique: Transaxial noncontrast images from the skull base through the vertex were obtained. Sagittal and coronal reformatted images were done. Dose modulation, iterative reconstruction, and/or weight based adjustment of the mA/kV was utilized to reduce the radiation dose to as low as reasonably achievable. Comparison: None. Findings: Scalp: No abnormalities. Bones: Intact. No fractures. No blastic or lytic lesions. Brain sulci: Mild volume loss for patient's age. Ventricles: No hydrocephalus. Extra-axial space: No abnormalities. Parenchyma: There are patchy and confluent areas of low-attenuation within subcortical and periventricular white matter, nonspecific, but could represent microvascular ischemic disease. No masses, hemorrhage, or acute or chronic cortical based vascular insults. Suprasellar region: No abnormalities. Craniocervical junction: The foramen magnum is patent. No Chiari one malformation. Incidental findings: Atherosclerotic calcification of the cavernous and supraclinoid internal carotid arteries. Impression: 1. No acute intracranial finding. 2. Mild chronic microvascular ischemic change and volume loss. Signed by: Dr. Kaden Richard M.D. on 10/18/2019 8:48 AM Dictated By: KADEN ABEL MD 7 Transcribed By: AMANDA on 10/18/19847 COPY TO: SHIRLEY ZUNIGA DO CHEST SINGLE (PORTABLE) 2019-10-18 08:16:00 [place] [address] Patient Name: GIGI GOMEZ MR #: [id number] : 1950 Age/Sex: 69/M Req #: [id number] Adm Physician: Ordered by: SHIRLEY ZUNIGA DO Report #: [id number] Location: ER Room/Bed: Procedure: [id number] DX/CHEST SINGLE (PORTABLE) Exam Date: 10/18/19 Exam Time: 0812 REPORT STATUS: Signed EXAMINATION: CHEST SINGLE (PORTABLE) INDICATION: Shortness of breath and head trauma COMPARISON: Multiple prior radiographs including most recent on 11/12/2018. FINDINGS: TUBES and LINES: None. LUNGS: Low lung volumes and bronchovascular crowding No consolidations. There is bibasilar atelectasis. PLEURA: No pleural effusion or pneumothorax. HEART AND MEDIASTINUM: The cardiomediastinal silhouette is unremarkable. BONES AND SOFT TISSUES: No acute osseous lesion. Soft tissues are unremarkable. UPPER ABDOMEN: No free air under the diaphragm. IMPRESSION: Low lung volumes and bronchovascular crowding with bibasilar atelectasis. No radiographic evidence of an acute cardiopulmonary process. Signed by: Griselda De La Rosa MD on 10/18/2019 8:17 AM Dictated By: GRISELDA DE LA ROSA MD 6 Transcribed By: AMANDA on 10/18/19816 COPY TO: SHIRLEY ZUNIGA, Blood leukocytes automated count (number/volume) 2019-10-18 07:44:00 Test Item White Blood Count (test code = 6690-2) 5.29 4.8-10.8 [facility] automated count (number/volume)2019-10-18 07:44:00* Test Item Value Reference Range Interpretation Comments Red Blood Count (test code = 789-8) 4.68 4.3-5.7 [facility] hemoglobin measurement (moles/volume)2019-10-18 07:44:00* Test Item Value Reference Range Interpretation Comments Hemoglobin (test code = 69913-5) 14.2 14.0-18.0 [facility] blood hematocrit (volume fraction)2019-10-18 07:44:00* Test Item Value Reference Range Interpretation Comments Hematocrit (test code = 4544-3) 42.6 38.2-49.6 [facility] erythrocyte mean corpuscular [id number] 07:44:00* Test Item Value Reference Range Interpretation Comments Mean Corpuscular Volume (test code = 787-2) 91.0 81-99 [facility] eryth[facility] mean corpuscular hemoglobin (mass per erythrocyte)2019-10-18 07:44:00* Test Item Value Reference Range Interpretation Comments Mean Corpuscular Hemoglobin (test code = 785-6) 30.3 28-32 [facility] erythrocyte mean corpuscular hemoglobin concentration measurement (mass/volume)2019-10-18 07:44:00* Test Item Value Reference Range Interpretation Comments Mean Corpuscular Hemoglobin Concent (test code = 786-4) 33.3 31-35 [facility] HospitalRDW [id number] 07:44:00* Test Item Value Reference Range Interpretation Comments Red Cell Distribution Width (test code = 86852-1) 12.7 11.7 -14.4 [facility] blood platelet count (count/volume)2019-10-18 07:44:00* Test Item Value Reference Range Interpretation Comments Platelet Count (test code = 777-3) 147 140-360 [facility] blood segmented neutrophil count as percentage of total gwljqtpkrb3384-87-68 07:44:00* Test Item Value Reference Range Interpretation Comments Neutrophils (%) (Auto) (test code = 10891-0) 63.8 38.7-80.0 [facility] lymphocyte count as percentage ot total [id number] 07:44:00* Test Item Value Reference Range Interpretation Comments Lymphocytes (%) (Auto) (test code = 736-9) 25.9 18.0-39.1 [facility] blood monocyte count as percentage of total pqektyrnse2170-54-29 07:44:00* Test Item Value Reference Range Interpretation Comments Monocytes (%) (Auto) (test code = 5905-5) 7.6 4.4-11.3 [facility] blood eosinophil count as percentage of total ergjgfbhio2379-44-87 07:44:00* Test Item Value Reference Range Interpretation Comments Eosinophils (%) (Auto) (test code = 713-8) 2.1 0.0-6.0 [facility] blood basophil count as percentage of total raypqvqohq2986-56-08 07:44:00* Test Item Value Reference Range Interpretation Comments Basophils (%) (Auto) (test code = 706-2) 0.4 0.0-1.0 [facility] HospitalFluoroscopic procedure less than one hour rfqlktvq3132-29-56 07:44:00* Test Item Value Reference Range Interpretation Comments IM GRANULOCYTES % (test code = IM GRANULOCYTES %) 0.2 0.0- 1.0 [facility] blood neutrophil count 2019-10-18 07:44:00* Test Item Value Reference Range Interpretation Comments Neutrophils # (Auto) (test code = 751-8) 3.4 2.1-6.9 [facility] Hospital[facility] lymphocytes count (number/volume) 2019-10-18 07:44:00* Test Item Value Reference Range Interpretation Comments Lymphocytes # (Auto) (test code = 84112-0) 1.4 1.0-3.2 [facility] monocytes automated count (number/volume)2019-10-18 07:44:00* Test Item Value Reference Range Interpretation Comments Monocytes # (Auto) (test code = 742-7) 0.4 0.2-0.8 [facility] Hospital[facility] blood eosinophil count 2019-10-18 07:44:00* Test Item Value Reference Range Interpretation Comments Eosinophils # (Auto) (test code = 711-2) 0.1 0.0-0.4 [facility] Hospital[facility] blood basophil count (count/volume)2019-10-18 07:44:00* Test Item Value Reference Range Interpretation Comments Basophils # (Auto) (test code = 704-7) 0.0 0.0-0.1 [facility] HospitalFluoroscopic procedure less than one hour [id number] 07:44:00* Test Item Value Reference Range Interpretation Comments Absolute Immature Granulocyte (auto (shanika t code = Absolute Immature Granulocyte (auto) 0.01 0-0.1 [facility] or plasma sodium measurement (moles/volume)2019-10-18 07:44:00* Test Item Value Reference Range Interpretation Comments Sodium Level (test code = 2951-2) 138 136-145 [facility] or plasma potassium measurement (moles/volume)2019-10-18 07:44:00* Test Item Value Reference Range Interpretation Comments Potassium Level (test code = 2823-3) 4.0 3.5-5.1 [facility] or plasma chloride measurement (moles/volume)2019-10-18 07:44:00* Test Item Value Reference Range Interpretation Comments Chloride Level (test code = 2075-0) 106 98-107 [facility] or plasma carbon dioxide, total measurement (moles/volume)2019-10-18 07:44:00* Test Item Value Reference Range Interpretation Comments Carbon Dioxide Level (test code = 2028-9) 20 22-29 [facility] Hospitaler[facility] or plasma anion [id number] 07:44:00* Test Item Value Reference Range Interpretation Comments Anion Gap (test code = 66445-5) 16.0 8-16 [facility] or plasma urea nitrogen measurement (mass/volume)2019-10-18 07:44:00* Test Item Value Reference Range Interpretation Comments Blood Urea Nitrogen (test code = 3094-0) 13 7-26 [facility] or plasma creatinine measurement (mass/volume)2019-10-18 07:44:00* Test Item Value Reference Range Interpretation Comments Creatinine (test code = 2160-0) 0.99 0.72-1.25 [facility] Hospitalerum or plasma urea nitrogen/creatinine mass rtirv2704-37-44 07:44:00* Test Item Value Reference Range Interpretation Comments BUN/Creatinine Ratio (test code = 3097-3) 13 6- [facility] HospitalEstimated glomerular filtration rate (GFR) szemwpeldionr8905-06-90 07:44:00* Test Item Value Reference Range Interpretation Comments Estimat Glomerular Filtration Rate (test code = 153752206) > 60 >60 Ranges were taken from the National Kidney Disease Education Program and the [facility] literature.Reference ranges:60 or greater: Xbjocr32-84 ( for 3 consecutive months): Chronic kidney disease 15 or less: Kidney failureUT Health East Texas Carthage HospitalGlucose vqzgkdttybo1467-17-90 07:44:00* Test Item Value Reference Range Interpretation Comments Glucose Level (test code = ZXB1973) 269 74-118 [facility] Hospitalerum or plasma calcium measurement (mass/volume)2019-10-18 07:44:00* Test Item Value Reference Range Interpretation Comments Calcium Level (test code = 79717-0) 8.7 8.4-10.2 [facility] Hospitalerum or plasma total bilirubin measurement (mass/volume)2019-10-18 07:44:00* Test Item Value Reference Range Interpretation Comments Total Bilirubin (test code = 1975-2) 0.6 0.2-1.2 [facility] HospitalFluoroscopic procedure less than one hour izfbnzxh7381-55-34 07:44:00* Test Item Value Reference Range Interpretation Comments Aspartate Amino Transf (AST/SGOT) (test code = Aspartate Amino Transf (AST/SGOT)) 20 5-34 [facility] Hospitalerum or plasma alanine aminotransferase measurement (enzymatic activity/volume)2019-10-18 07:44:00* Test Item Value Reference Range Interpretation Comments Alanine Aminotransferase (ALT/SGPT) (test code = 1742-6) 28 0-55 [facility] Hospitalerum or plasma protein measurement (mass/volume)2019-10-18 07:44:00* Test Item Value Reference Range Interpretation Comments Total Protein (test code = 2885-2) 6.4 6.5-8.1 [facility] Hospitalerum or plasma albumin measurement (mass/volume)2019-10-18 07:44:00* Test Item Value Reference Range Interpretation Comments Albumin (test code = 1751-7) 3.5 3.5-5.0 [facility] HospitalPlasma globulin measurement (mass/volume) 2019-10-18 07:44:00* Test Item Value Reference Range Interpretation Comments Globulin (test code = 58192-3) 2.9 2.3-3.5 [facility] Hospitalerum or plasma albumin/globulin mass wquqv2163-34-02 07:44:00* Test Item Value Reference Range Interpretation Comments Albumin/Globulin Ratio (test code = 1759-0) 1.2 0.8-2.0 [facility] Hospitalerum or plasma alkaline phosphatase measurement (enzymatic activity/volume)2019-10-18 07:44:00* Test Item Value Reference Range Interpretation Comments Alkaline Phosphatase (test code = 6768-6) 69 40-150 [facility] DSJGT9613-80-80 06:03:00 [facility] [address] [address] Patient Name: GIGI GOMEZ MR #: [id number] : 1950 Age/Sex: 68/M Req #: [id number] Adm Physician: Ordered by: MARKIE JACKSON MD Report #: [id number] Location: ER Room/Bed: Procedure: DX/CHEST 2 VIEWS Exam Date: 11/12/18 Exam Ti me: 0538 REPORT STATUS: Signed E XAMINATION: CHEST 2 VIEWS INDICATION: sob [id number] Y COMPARISON: 10/22/2018 FINDINGS: PA and lateral views TUBES and LINES: None. LUNGS: Lungs are well inflated. There is no evide nce of pneumonia or pulmonary edema. Mild left basilar atelectasis/scarring. PLEURA: No pleural effusion or pneumothorax. HEART AND MEDIASTINUM: T he cardiomediastinal silhouette is unremarkable. BONES AND SOFT TISSUES : No acute osseous lesion. Soft tissues are unremarkable. UPPER ABDOMEN : No free air under the diaphragm. IMPRESSION: No acute thoracic abn ormality. Signed by: Dr. Ross Sun MD on 11/12/2018 6:05 AM D ictated By: ROSS SUN MD 4 COPY TO: MARKIE JACKSON MD B-Type Natriuretic Xzcrnej3827-77-40 05:21:00* Test Item Value Reference Range Interpretation Comments B-Type Natriuretic Peptide (test code = 51687-3) < 10.0 0-100 [facility] HospitalD-Dimer Quantitative (PE/DVT)2018-11-12 05:12:00* Test Item Value Reference Range Interpretation Comments D-Dimer Quantitative (PE/DVT) (test code = 61206-6) 0.39 0. 00-0.45 [facility] HospitalCreatine Kinase SF3177-90-17 05:12:00* Test Item Value Reference Range Interpretation Comments Creatine Kinase MB (test code = 13441-3) 0.80 0-5.0 [facility] HospitalTroponin V8107-49-77 05:12:00* Test Item Value Reference Range Interpretation Comments Troponin I (test code = MVT1467) 0.005 0-0.300 [facility] Hospitalodium Gjnyf5945-35-75 05:11:00* Test Item Value Reference Range Interpretation Comments Sodium Level (test code = 2951-2) 137 136-145 [facility] HospitalPotassium Doakx4691-90-22 05:11:00* Test Item Value Reference Range Interpretation Comments Potassium Level (test code = 2823-3) 4.4 3.5-5.1 [facility] HospitalChloride Rgolv8010-63-50 05:11:00* Test Item Value Reference Range Interpretation Comments Chloride Level (test code = 2075-0) 100 98-107 [facility] HospitalCarbon Dioxide Uedap0297-40-83 05:11:00* Test Item Value Reference Range Interpretation Comments Carbon Dioxide Level (test code = 2028-9) 28 22-29 [facility] HospitalAnion Prz8002-85-23 05:11:00* Test Item Value Reference Range Interpretation Comments Anion Gap (test code = 87757-0) 13.4 8-16 [facility] HospitalBlood Urea Jsdycvqj7908-32-23 05:11:00* Test Item Value Reference Range Interpretation Comments Blood Urea Nitrogen (test code = 3094-0) 16 7-26 [facility] HospitalCreatinine2019-09-25 05:11:00* Test Item Value Reference Range Interpretation Comments Creatinine (test code = 2160-0) 0.84 0.72-1.25 [facility] HospitalBUN/Creatinine Dfyrz6957-53-11 05:11:00* Test Item Value Reference Range Interpretation Comments BUN/Creatinine Ratio (test code = 3097-3) 19 6-25 [facility] HospitalEstimat Glomerular Filtration Rate 2018-11-12 05:11:00* Test Item Value Reference Range Interpretation Comments Estimat Glomerular Filtration Rate (test code = 425863689) > 60 >60 Ranges were taken from the National Kidney Disease Education Program and the [facility] Kidney Foundation literature.Reference ranges:60 or greater: Eqttwl49-99 ( for 3 consecutive months): Chronic kidney disease 15 or less: Kidney failureUT Health East Texas Car[facility] HospitalGlucose Mgqhh2136-71-78 05:11:00* Test Item Value Reference Range Interpretation Comments Glucose Level (test code = WWA9687) 137 74-118 H [facility] HospitalCalcium Qcfbn1957-72-00 05:11:00* Test Item Value Reference Range Interpretation Comments Calcium Level (test code = 37162-0) 9.5 8.4-10.2 [facility] HospitalTotal Amqaywyps4894-54-28 05:11:00* Test Item Value Reference Range Interpretation Comments Total Bilirubin (test code = 1975-2) 0.8 0.2-1.2 [facility] HospitalAspartate Amino Transf (AST/SGOT) 2018-11-12 05:11:00* Test Item Value Reference Range Interpretation Comments Aspartate Amino Transf (AST/SGOT) (test code = Aspartate Amino Transf (AST/SGOT)) 25 5-34 [facility] HospitalAlanine Aminotransferase (ALT/SGPT) 2018-11-12 05:11:00* Test Item Value Reference Range Interpretation Comments Alanine Aminotransferase (ALT/SGPT) (test code = 1742-6) 29 0-55 [facility] HospitalTotal Hzkzzbx3599-36-12 05:11:00* Test Item Value Reference Range Interpretation Comments Total Protein (test code = 2885-2) 6.6 6.5-8.1 [facility] HospitalAlbumin2019-09-25 05:11:00* Test Item Value Reference Range Interpretation Comments Albumin (test code = 1751-7) 3.5 3.5-5.0 [facility] HospitalGlobulin2019-09-25 05:11:00* Test Item Value Reference Range Interpretation Comments Globulin (test code = 94115-3) 3.1 2.3-3.5 [facility] HospitalAlbumin/Globulin Lkqkr7469-31-53 05:11:00 * Test Item Value Reference Range Interpretation Comments Albumin/Globulin Ratio (test code = 1759-0) 1.1 0.8-2.0 [facility] HospitalAlkaline Uyaalxowkle0883-59-09 05:11:00* Test Item Value Reference Range Interpretation Comments Alkaline Phosphatase (test code = 6768-6) 86 40-150 [facility] HospitalCreatine Extwzm1602-93-64 05:11:00* Test Item Value Reference Range Interpretation Comments Creatine Kinase (test code = 2157-6) 52 30-200 [facility] HospitalWhite Blood Zopca8483-74-38 04:48:00* Test Item Value Reference Range Interpretation Comments White Blood Count (test code = 6690-2) 5.82 4.8-10.8 [facility] HospitalRed Blood Tyfkn8329-94-92 04:48:00* Test Item Value Reference Range Interpretation Comments Red Blood Count (test code = 789-8) 4.71 4.3-5.7 [facility] HospitalHemoglobin2019-09-25 04:48:00* Test Item Value Reference Range Interpretation Comments Hemoglobin (test code = 31500-6) 14.5 14.0-18.0 [facility] HospitalHematocrit2019-09-25 04:48:00* Test Item Value Reference Range Interpretation Comments Hematocrit (test code = 4544-3) 42.5 38.2-49.6 [facility] HospitalMean Corpuscular Gsdqsp2372-77-23 04:48:00* Test Item Value Reference Range Interpretation Comments Mean Corpuscular Volume (test code = 787-2) 90.2 81-99 [facility] HospitalMean Corpuscular Pqkxoxfpay9838-27-39 04:48:00* Test Item Value Reference Range Interpretation Comments Mean Corpuscular Hemoglobin (test code = 785-6) 30.8 28-32 [facility] HospitalMean Corpuscular Hemoglobin Concent 2018-11-12 04:48:00* Test Item Value Reference Range Interpretation Comments Mean Corpuscular Hemoglobin Concent (test code = 786-4) 34.1 31-35 [facility] HospitalRed Cell Distribution Orocu2448-51-06 04:48:00* Test Item Value Reference Range Interpretation Comments Red Cell Distribution Width (test code = 03010-7) 11.9 11.7 -14.4 [facility] HospitalPlatelet Qjuum8928-33-80 04:48:00* Test Item Value Reference Range Interpretation Comments Platelet Count (test code = 777-3) 225 140-360 [facility] HospitalNeutrophils (%) (Auto)2018-11-12 04:48:00 * Test Item Value Reference Range Interpretation Comments Neutrophils (%) (Auto) (test code = 73577-2) 46.7 38.7-80.0 [facility] HospitalLymphocytes (%) (Auto)2018-11-12 04:48:00 * Test Item Value Reference Range Interpretation Comments Lymphocytes (%) (Auto) (test code = 736-9) 39.2 18.0-39.1 H [facility] HospitalMonocytes (%) (Auto)2018-11-12 04:48:00* Test Item Value Reference Range Interpretation Comments Monocytes (%) (Auto) (test code = 5905-5) 9.8 4.4-11.3 [facility] HospitalEosinophils (%) (Auto)2018-11-12 04:48:00 * Test Item Value Reference Range Interpretation Comments Eosinophils (%) (Auto) (test code = 713-8) 3.3 0.0-6.0 [facility] HospitalBasophils (%) (Auto)2018-11-12 04:48:00* Test Item Value Reference Range Interpretation Comments Basophils (%) (Auto) (test code = 706-2) 0.7 0.0-1.0 [facility] HospitalIM GRANULOCYTES %2018-11-12 04:48:00* Test Item Value Reference Range Interpretation Comments IM GRANULOCYTES % (test code = IM GRANULOCYTES %) 0.3 0.0- 1.0 [facility] HospitalNeutrophils # (Auto)2018-11-12 04:48:00* Test Item Value Reference Range Interpretation Comments Neutrophils # (Auto) (test code = 751-8) 2.7 2.1-6.9 [facility] HospitalLymphocytes # (Auto)2018-11-12 04:48:00* Test Item Value Reference Range Interpretation Comments Lymphocytes # (Auto) (test code = 62711-5) 2.3 1.0-3.2 [facility] HospitalMonocytes # (Auto)2018-11-12 04:48:00* Test Item Value Reference Range Interpretation Comments Monocytes # (Auto) (test code = 742-7) 0.6 0.2-0.8 [facility] HospitalEosinophils # (Auto)2018-11-12 04:48:00* Test Item Value Reference Range Interpretation Comments Eosinophils # (Auto) (test code = 711-2) 0.2 0.0-0.4 [facility] HospitalBasophils # (Auto)2018-11-12 04:48:00* Test Item Value Reference Range Interpretation Comments Basophils # (Auto) (test code = 704-7) 0.0 0.0-0.1 [facility] HospitalAbsolute Immature Granulocyte (auto 2018-11-12 04:48:00* Test Item Value Reference Range Interpretation Comments Absolute Immature Granulocyte (auto (shanika t code = Absolute Immature Granulocyte (auto) 0.02 0-0.1 [facility] HospitalB-Type Natriuretic Vbxclrj9441-46-92 04:34:00* Test Item Value Reference Range Interpretation Comments B-Type Natriuretic Peptide (test code = 21810-3) < 10.0 0-100 [facility] HospitalCreatine Kinase VV8976-01-83 04:21:00* Test Item Value Reference Range Interpretation Comments Creatine Kinase MB (test code = 34119-8) 0.30 0-5.0 [facility] HospitalTroponin L9043-80-89 04:21:00* Test Item Value Reference Range Interpretation Comments Troponin I (test code = SNK2174) < 0.001 0-0.300 [facility] Hospitalodium Ztrxs8537-54-75 04:13:00* Test Item Value Reference Range Interpretation Comments Sodium Level (test code = 2951-2) 137 136-145 [facility] HospitalPotassium Opspr9864-11-05 04:13:00* Test Item Value Reference Range Interpretation Comments Potassium Level (test code = 2823-3) 3.6 3.5-5.1 [facility] HospitalChloride Msbqn1909-14-06 04:13:00* Test Item Value Reference Range Interpretation Comments Chloride Level (test code = 2075-0) 100 98-107 [facility] HospitalCarbon Dioxide Ygeyo3840-71-52 04:13:00* Test Item Value Reference Range Interpretation Comments Carbon Dioxide Level (test code = 2028-9) 27 22-29 [facility] HospitalAnion Jud7383-23-00 04:13:00* Test Item Value Reference Range Interpretation Comments Anion Gap (test code = 23199-8) 13.6 8-16 [facility] HospitalBlood Urea Nvocvzde9238-99-23 04:13:00* Test Item Value Reference Range Interpretation Comments Blood Urea Nitrogen (test code = 3094-0) 10 7-26 [facility] HospitalCreatinine2019-09-04 04:13:00* Test Item Value Reference Range Interpretation Comments Creatinine (test code = 2160-0) 0.81 0.72-1.25 [facility] HospitalBUN/Creatinine Djewu1744-08-85 04:13:00* Test Item Value Reference Range Interpretation Comments BUN/Creatinine Ratio (test code = 3097-3) 12 6-25 [facility] HospitalEstimat Glomerular Filtration Rate 2018-10-22 04:13:00* Test Item Value Reference Range Interpretation Comments Estimat Glomerular Filtration Rate (test code = 817863987) > 60 >60 Ranges were taken from the National Kidney Disease Education Program and the [facility] Kidney Foundation literature.Reference ranges:60 or greater: Xddggv49-02 ( for 3 consecutive months): Chronic kidney disease 15 or less: Kidney failureUT Health East Texas Carth[facility] HospitalGlucose Efdcn3260-08-23 04:13:00* Test Item Value Reference Range Interpretation Comments Glucose Level (test code = XRU5561) 142 74-118 H [facility] HospitalCalcium Zljmy5270-26-95 04:13:00* Test Item Value Reference Range Interpretation Comments Calcium Level (test code = 41107-5) 10.3 8.4-10.2 H [facility] HospitalTotal Qaaattemc9895-69-76 04:13:00* Test Item Value Reference Range Interpretation Comments Total Bilirubin (test code = 1975-2) 0.9 0.2-1.2 [facility] HospitalAspartate Amino Transf (AST/SGOT) 2018-10-22 04:13:00* Test Item Value Reference Range Interpretation Comments Aspartate Amino Transf (AST/SGOT) (test code = Aspartate Amino Transf (AST/SGOT)) 19 5-34 [facility] HospitalAlanine Aminotransferase (ALT/SGPT) 2018-10-22 04:13:00* Test Item Value Reference Range Interpretation Comments Alanine Aminotransferase (ALT/SGPT) (test code = 1742-6) 24 0-55 [facility] HospitalTotal Mieouaq6668-47-16 04:13:00* Test Item Value Reference Range Interpretation Comments Total Protein (test code = 2885-2) 6.9 6.5-8.1 [facility] HospitalAlbumin2019-09-04 04:13:00* Test Item Value Reference Range Interpretation Comments Albumin (test code = 1751-7) 3.8 3.5-5.0 [facility] HospitalGlobulin2019-09-04 04:13:00* Test Item Value Reference Range Interpretation Comments Globulin (test code = 44273-6) 3.1 2.3-3.5 [facility] HospitalAlbumin/Globulin Gxusv1141-61-80 04:13:00 * Test Item Value Reference Range Interpretation Comments Albumin/Globulin Ratio (test code = 1759-0) 1.2 0.8-2.0 [facility] HospitalAlkaline Jelefvlqttr5699-69-13 04:13:00* Test Item Value Reference Range Interpretation Comments Alkaline Phosphatase (test code = 6768-6) 89 40-150 [facility] HospitalCreatine Naowwu5036-39-02 04:13:00* Test Item Value Reference Range Interpretation Comments Creatine Kinase (test code = 2157-6) 91 30-200 [facility] HospitalD-Dimer Quantitative (PE/DVT)2018-10-22 04:05:00* Test Item Value Reference Range Interpretation Comments D-Dimer Quantitative (PE/DVT) (test code = 12158-2) 0.44 0. 00-0.45 [facility] HospitalCHEST SINGLE (PORTABLE)2018-10-22 03:53:00 [facility] [address] [place] [address] Patient Name: GIGI GOMEZ MR #: [id number] : 1950 Age/Sex: 68/M Req #: [id number] Adm Physician: Ordered by: MARKIE JACKSON MD Report #: [id number] Location: ER Room/Bed: Procedure: DX/CHEST SINGLE (PORTABLE) Exam Date: 10/22/18 Exam Time: 0325 REPORT STATUS: S igned EXAMINATION: CHEST SINGLE (PORTABLE) COMPARISON: None IN DICATION: SOB [id number] Y DISCUSSION: Frontal view of the [...] COPY TO: MARKIE JACKSON MD White Blood Mgjex4467-43-01 03:50:00* Test Item Value Reference Range Interpretation Comments White Blood Count (test code = 6690-2) 4.80 4.8-10.8 [facility] HospitalRed Blood Rakpf2993-31-48 03:50:00* Test Item Value Reference Range Interpretation Comments Red Blood Count (test code = 789-8) 4.69 4.3-5.7 [facility] HospitalHemoglobin2019-09-04 03:50:00* Test Item Value Reference Range Interpretation Comments Hemoglobin (test code = 37826-6) 14.7 14.0-18.0 [facility] HospitalHematocrit2019-09-04 03:50:00* Test Item Value Reference Range Interpretation Comments Hematocrit (test code = 4544-3) 41.9 38.2-49.6 [facility] HospitalMean Corpuscular Otpcbv9428-57-77 03:50:00* Test Item Value Reference Range Interpretation Comments Mean Corpuscular Volume (test code = 787-2) 89.3 81-99 [facility] Corpuscular Pygvkrnibg1876-14-69 03:50:00* Test Item Value Reference Range Interpretation Comments Mean Corpuscular Hemoglobin (test code = 785-6) 31.3 28-[address] [facility] Corpuscular Hemoglobin Concent 2018-10-22 03:50:00* Test Item Value Reference Range Interpretation Comments Mean Corpuscular Hemoglobin Concent (test code = 786-4) 35.1 31-35 H [facility] HospitalRed Cell Distribution Xnkbv1254-00-40 03:50:00* Test Item Value Reference Range Interpretation Comments Red Cell Distribution Width (test code = 53869-9) 12.0 11.7 -14.4 [facility] HospitalPlatelet Kdnyo7898-78-08 03:50:00* Test Item Value Reference Range Interpretation Comments Platelet Count (test code = 777-3) 190 140-360 [facility] HospitalNeutrophils (%) (Auto)2018-10-22 03:50:00 * Test Item Value Reference Range Interpretation Comments Neutrophils (%) (Auto) (test code = 26480-0) 50.5 38.7-80.0 [facility] HospitalLymphocytes (%) (Auto)2018-10-22 03:50:00 * Test Item Value Reference Range Interpretation Comments Lymphocytes (%) (Auto) (test code = 736-9) 35.4 18.0-39.1 [facility] HospitalMonocytes (%) (Auto)2018-10-22 03:50:00* Test Item Value Reference Range Interpretation Comments Monocytes (%) (Auto) (test code = 5905-5) 9.4 4.4-11.3 [facility] HospitalEosinophils (%) (Auto)2018-10-22 03:50:00 * Test Item Value Reference Range Interpretation Comments Eosinophils (%) (Auto) (test code = 713-8) 3.5 0.0-6.0 [facility] HospitalBasophils (%) (Auto)2018-10-22 03:50:00* Test Item Value Reference Range Interpretation Comments Basophils (%) (Auto) (test code = 706-2) 0.6 0.0-1.0 [facility] HospitalIM GRANULOCYTES %2018-10-22 03:50:00* Test Item Value Reference Range Interpretation Comments IM GRANULOCYTES % (test code = IM GRANULOCYTES %) 0.6 0.0- 1.0 [facility] HospitalNeutrophils # (Auto)2018-10-22 03:50:00* Test Item Value Reference Range Interpretation Comments Neutrophils # (Auto) (test code = 751-8) 2.4 2.1-6.9 [facility] HospitalLymphocytes # (Auto)2018-10-22 03:50:00* Test Item Value Reference Range Interpretation Comments Lymphocytes # (Auto) (test code = 77873-2) 1.7 1.0-3.2 [facility] HospitalMonocytes # (Auto)2018-10-22 03:50:00* Test Item Value Reference Range Interpretation Comments Monocytes # (Auto) (test code = 742-7) 0.5 0.2-0.8 [facility] HospitalEosinophils # (Auto)2018-10-22 03:50:00* Test Item Value Reference Range Interpretation Comments Eosinophils # (Auto) (test code = 711-2) 0.2 0.0-0.4 [facility] HospitalBasophils # (Auto)2018-10-22 03:50:00* Test Item Value Reference Range Interpretation Comments Basophils # (Auto) (test code = 704-7) 0.0 0.0-0.1 [facility] HospitalAbsolute Immature Granulocyte (auto 2018-10-22 03:50:00* Test Item Value Reference Range Interpretation Comments Absolute Immature Granulocyte (auto (shanika t code = Absolute Immature Granulocyte (auto) 0.03 0-0.1 [facility]- XR SPINE 1 V SPEC ITWMH5110-34-26 09:53:00Patient Name: GIGI MONROE Unit No: [id number] EXAMS: CPT CODE: [id number] XR SPINE 1 V SPEC LEVEL 53741 Examination: Single lateral intraoperative view of the [...] Dt/Tm: 10/04/2018 (0953) by:[email or web address] Printed Date/Time: 10/04/2018 (6000) Name: RODRIGO MONROEKIRSTEN PETERSEN [facility] Phys: Abundio Arguello MD [address] : 1950 Age: 68 Sex: [place] [address] Loc: P.0575 1 Exam Date: 10/02/2018 Status: ADM IN PH: FAX: PAGE 1 Signed Report SURGICAL BTNBFBETY7791-94-77 16:56:00 RUN DATE: 10/03/18 [facility] PAGE 1 RUN TIME: 1656 Specimen Inqui ry RUN USER: INTERFACE PATIENT: GIGI MONROE ACCT #: B [id number] LOC: P.5N POD B U #: [id number] AGE/SX: 68/M ROOM: [facility] RE10/02/18REG DR: Abundio Mccain MD : [birth year] BED: 1 DIS: STATUS: ADM Nico TLOC: SPEC #: [id number] RECD: 10/02/18 STATUS: RUSSELL REED #: [id number] ENZO: 10/02/[address]: Abundio Mccain [...] in aggregate. No discrete lesions are seen. Packaging Sales Consultant sections are submitted in a single cassette. SLITTER OPERATOR/eb MICROSCOPIC DESCRIPTION No malignancy is identified. Signed SIGNATURE ON FILE Janey Russell 10/03/18 1656 END OF REPORT PROTHROMBIN [id number] 11:14:00* Test Item Value Reference Range Interpretation [...] heart valves; 2.5-3.5recurrent systemic embolism. THROMBOPLASTIN TIME [id number] 11:14:00* Test Item Value Reference Range Interpretation Comments THROMBOPLASTIN TIME PARTIAL (test code = PTT) 33.0 SECONDS 26.0-35. 9 N INTERPRETATIVE DATA:Therapeutic range: Unfractionated heparin:47 - 71 seconds Argatroban:1.5 to 3 times the baseline PTT COMPREHENSIVE METABOLIC CLLYT5271-57-84 10:54:00* Test Item Value Reference Range Interpretation [...] CHD)40-59mg/dL: Borderline Risk LDL Cholesterol<100mg/dL: Desirable LDL-C lffoovuokjvff019-015hk/dL: Borderline High Risk LDL-C egrrztgboumgn545-468qh/dL: High risk LDL-C concentration HDL-LDL Cholesterol is affected by a number of factors suchas smoking, age and sex.~~~~~~~~~~~~~~~~~~~~~~~~~~~~~~~~~~~~~~~~~~~~~~~~~~~~~~~~~~~~ URINALYSIS [id number] 10:49:00* Test Item Value Reference Range Interpretation [...] = LEUU) NEGATIVE NEGA TIVE CBC W/AUTO [id number] 10:48:00* Test Item Value Reference Range Interpretation [...] x10 3/uL 0.0-0.20 N MRI SPINE LUMBAR [id number] 08:32:00 [place] [address] Patient Name: GIGI GOMEZ MR #: [id number] : 1950 Age/Sex: 67/M Req #: [id number] [facility] Physician: Ordered by: MINERVA ISBELL MD Report #: [id number] Location: MRI Room/Bed: Procedure: [id number] MRI/MRI SPINE LUMBAR WO Exam Date: 04/15/18 [...]
--- OUTSIDE RECORDS SUMMARY | 2019-10-19 00:41 | XMS REPORT | Clinical Summary ---
Author Author [facility] Organization [facility] Address Unknown Phone Unavailable Care Team Providers Care Stamp Collector Name Role Phone PCP Unavailable Allergies No [...] 07/16/2015 and Up Results Not on fileafter 10/18/2018 Insurance Type Payer Benefit Subscriber ID Effective Phone Address Plan / Dates Group [facility] xxxxxxxxx 2017-P [phone] [address] MEDICARE [place]ICARE [place] [id number] [place] [address] [place] [id number] xxxxxxxxx 2013-P [phone] [address] QUALIFIED resent [id number] MEDICARE [place], [place] BENEFICIAR [phone] Y
== END 2019-10-19 00:51 | disposition home or self-care (01) ==
LOC: ER 23:54
DX: S06.0X0A Concussion without loss of consciousness, initial encounter (principal); G44.309 Post-traumatic headache, unspecified, not intractable; W22.8XXA Striking against or struck by other objects, initial encounter; R11.0 Nausea; I10 Essential (primary) hypertension; E78.5 Hyperlipidemia, unspecified; M54.9 Dorsalgia, unspecified; G89.29 Other chronic pain
CPT/HCPCS: 99282; J1885

== ENCOUNTER 2019-10-19 17:26 | Emergency (ER) | payer MEDICARE ==
[~2019-10-19] VITALS: Ht 162.6 cm; Wt 92.5 kg
[2019-10-19] MEDS ORDERED: ASPIRIN 81 MG CHEW TAB PO ONE (18:15)
--- OUTSIDE RECORDS SUMMARY | 2019-10-19 18:19 | XMS REPORT | Clinical Summary ---
Author Author [facility] Organization [facility] Address Unknown Phone Unavailable Care Team Providers Care Technical Testing Engineer Name Role Phone PCP Unavailable Allergies No [...] Effective Phone Address Plan / Dates Group [facility] xxxxxxxxx 2017-P [phone] P .[address].BOX MEDICARE MEDICARE resent [id number] [place] [address] [place] [id number] xxxxxxxxx 2013-P [phone] [address] QUALIFIED resent [id number] MEDICARE [place] BENEFICIAR [phone] Y
--- OUTSIDE RECORDS SUMMARY | 2019-10-19 18:20 | XMS REPORT | Continuity of Care Document ---
Author Author [facility] t Organization [facility] Address [address] [place] [address] Phone Unavailable Care Team Providers Care Canteen Attendant Name Role Phone HA EASTON, MD Rachele BEAN PCP Jaswant ZUNIGA Attphys Unavailable MARKIE BARRERA M.D. Attphys Unavailable Coleman JACKSON Attphys Unavailable MINERVA ISBELL Attphys Unavailable Payers Payer Name Policy Type Policy Number Effective Date Expiration Date S alfredo Medicare A & B [id number] [facility] Medicare Complete [id number] C [facility] [id number] [facility] [id number] I [facility] [id number] I [facility] Problems Condition Name Condition Details Condition Category Status Onset Date Resolution Date Last Treatment Date Treating Clinician Comments Source Impacted cerumen of left ear Impacted cerumen of left ear Disease Active 2016-10-11 00:00:00 [facility] H/O mastoidectomy H/O mastoidectomy Disease Active 2013-06-15 00:00:00 [facility] Hearing loss Hearing loss Disease Active 2013-06-15 00:00:[address] 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 HLD (hyperlipidemia) HLD (hyperlipidemia) Disease Active 00:00:[address] [facility] History of Known health problems: none History of Known heal th problems: none Problem Resolved [facility] Encounter for mastoidectomy cavity debridement Encount er for mastoidectomy cavity debridement Problem Active [facility] Otalgia of left ear Otalgia of left ear Problem Active [facility] Impacted cerumen of left ear Impacted cerumen of left ear Problem Active [facility] Thyroid nodule Thyroid nodule Problem Active [facility] Chronic otitis externa Chronic otitis externa Problem Active [facility] Sensation of plugged ear on left side Sensation of plugged e ar on left side Problem Active [facility] Concussion Problem Active [facility] Post-traumatic headache Problem Active [facility] Allergies, Adverse Reactions, Alerts Allergy Name Allergy Type Status Severity Reaction(s) Onset Date Inacti ve Date Treating Clinician Comments Source No Known Allergies DA Active U 2018-10-02 00:00:00 [facility] No Known Allergies DA Active U 2018-09-26 00:00:00 [facility] Family History Family Member Diagnosis Comments Start Date Stop Date Source unknown Unknown Fam [facility] Social History Social Habit Start Date Stop Date Quantity Comments Source Sex Assigned At [facility] Alcohol intake 2016-12-26 00:00:00 2016-12-26 00:00:00 Current drinker of alcohol (finding) [facility] Smoking Status Start Date Stop Date Source Former smoker [facility] Never smoker [facility] Medications Ordered Medication Name Filled Medication Name Start Date Stop Da te Current Medication? Ordering Clinician Indication Dosage Frequency Signature (SIG) Comments Components Source Butalbital/Aspirin/Caffeine (Fiorinal 50-325-40 Mg Cap vin) 1 Each CAPSULE Butalbital/Aspirin/Caffeine (Fiorinal 50-325-40 Mg Capsule) 1 Each CAPSULE 2019-10-18 08:36:00 Yes 1 Every 8 Hours as n eeded for Headache [facility] Tramadol Hcl (Ultram) 50 Mg TABLET Tramadol Hcl (Ultram) 50 Mg TABLET 2019-10-18 08:36:00 Yes 50 Every 6 Ho urs as needed for Mild Pain (1-3) Or Fever>100.8 [facility] Ciprodex 0.3-0.1 % Otic Suspension Ciprodex 0.3-0.1 % Otic S uspension 2018-07-21 00:00:00 Yes MARKIE BARRERA M.D. 3-4 drops to the a ffected ear BID [facility] acetaminophen (TYLENOL) 325 mg tablet 2015-05-24 12:12:54 Y es 650mg Take 650 mg by mouth Before meals as needed for Pain. [facility] traMADol (ULTRAM) 50 mg tablet 2015-04-05 00:00:00 Yes Otalgia of left ear 50mg Take 1 tablet by mouth every 6 hours as needed for Pain. [facility] naproxen (NAPROSYN) 375 mg tablet 2014-02-16 00:00:00 Ye s Hearing loss 375mg Take 1 tablet by mouth 2 times daily (with meals). [facility] HYDROcodone-acetaminophen (NORCO) 5-325 mg tablet 2013-11-20 00:00:00 Yes Hearing loss 2{tbl} Take 2 tablets by mouth every 4 hours as needed for Pain. [facility] ibuprofen (MOTRIN) 800 mg tablet 2013-07-07 00:00:00 Yes Otorrhea 800mg Take 1 tablet by mouth every 8 hours as needed for Pain. [facility] Immunizations Ordered Immunization Name Filled Immunization Name Date Status Comments Source Influenza Vaccine 2012-12-18 00:00:[address] [facility] Vital Signs Vital Name Observation Time Observation Value Comments Source Weight 2019-10-18 23:50:00 204 [lb_av] [facility] BMI (Body Mass Index) 2019-10-18 23:50:00 35.0 kg/m2 [facility] Weight 2019-10-18 07:32:00 204 [lb_av] [facility] BMI (Body Mass Index) 2019-10-18 07:32:00 35.0 kg/m2 [facility] BP Systolic 2019-01-22 11:01:00 143 mm[Hg] Location: LUE; Positi on: Sitting [facility] BP Diastolic 2019-01-22 11:01:00 81 mm[Hg] Location: CHARMAINE; Positi on: Sitting [facility] Height 2019-01-22 11:01:00 70 [in_us] [facility] Weight 2019-01-22 11:01:00 205.5625 [lb_av] [facility] Body Mass Index Calculated 2019-01-22 11:01:00 29.5 kg/m2 [facility] Heart Rate 2019-01-22 11:01:00 84 /min [facility] Weight 2018-11-18 16:07:00 201.3125 [lb_av] [facility] Body Mass Index Calculated 2018-11-18 16:07:00 28.89 kg/m2 [facility] Height 2018-11-18 16:07:00 70 [in_us] [facility] BP Systolic 2018-07-17 10:51:00 127 mm[Hg] Location: GARY Positi on: Sitting [facility] BP Diastolic 2018-07-17 10:51:00 74 mm[Hg] Location: CHARMAINE; Positi on: Sitting [facility] Height 2018-07-17 10:51:00 70 [in_us] [facility] Weight 2018-07-17 10:51:00 204.8 [lb_av] [facility] Body Mass Index Calculated 2018-07-17 10:51:00 29.39 kg/m2 [facility] Heart Rate 2018-07-17 10:51:00 77 /min [facility] BP Systolic 2018-02-27 13:29:00 127 mm[Hg] Location: GARY [facility] BP Diastolic 2018-02-27 13:29:00 72 mm[Hg] Location: GARY [facility] Height 2018-02-27 13:29:00 70 [in_us] [facility] Weight 2018-02-27 13:29:00 208 [lb_av] [facility] Body Mass Index Calculated 2018-02-27 13:29:00 29.85 kg/m2 [facility] Temperature 2018-02-27 13:29:00 98 [degF] Method: Oral [facility] Heart Rate 2018-02-27 13:29:00 65 /min Location: L Brachial Artery; [facility] BP Systolic 2017-11-07 14:58:00 129 mm[Hg] Location: [place]MA[place]; Positi on: Sitting [facility] BP Diastolic 2017-11-07 14:58:00 70 mm[Hg] Location: [place]; Positi on: Sitting [facility] Height 2017-11-07 14:58:00 70 [in_us] [facility] Weight 2017-11-07 14:58:00 204.5 [lb_av] [facility] Body Mass Index Calculated 2017-11-07 14:58:00 29.34 kg/m2 [facility] Heart Rate 2017-11-07 14:58:00 65 /min [facility] BP Systolic 2017-10-31 10:30:00 135 mm[Hg] Location: CHARMA[place]; Positi on: Sitting [facility] BP Diastolic 2017-10-31 10:30:00 71 mm[Hg] Location: [place]; Positi on: Sitting [facility] Height 2017-10-31 10:30:00 70 [in_us] [facility] Weight 2017-10-31 10:30:00 206 [lb_av] [facility] Body Mass Index Calculated 2017-10-31 10:30:00 29.56 kg/m2 [facility] Heart Rate 2017-10-31 10:30:00 65 /min [facility] BP Systolic 2017-08-08 13:30:00 112 mm[Hg] Location: [place]; Positi on: Sitting [facility] BP Diastolic 2017-08-08 13:30:00 66 mm[Hg] Location: [place]; Positi on: Sitting [facility] Height 2017-08-08 13:30:00 70 [in_us] [facility] Weight 2017-08-08 13:30:00 209.125 [lb_av] [facility] Body Mass Index Calculated 2017-08-08 13:30:00 30.01 kg/m2 [facility] Heart Rate 2017-08-08 13:30:00 71 /min [facility] BP Systolic 2017-03-14 11:25:00 133 mm[Hg] Location: GARY Positi on: Sitting [facility] BP Diastolic 2017-03-14 11:25:00 75 mm[Hg] Location: GARY Positi on: Sitting [facility] Height 2017-03-14 11:25:00 70 [in_us] [facility] Weight 2017-03-14 11:25:00 203 [lb_av] [facility] Body Mass Index Calculated 2017-03-14 11:25:00 29.13 kg/m2 [facility] Heart Rate 2017-03-14 11:25:00 69 /min [facility] Respiration Rate 2017-03-14 11:25:00 16 /min [facility] Procedures Procedure Date / Time Performed Performing Clinician Angelica everardo Computed tomography of brain without radiopaque contrast 2019-09 00:00:00 [facility] [place] [id number] 2018-02-27 00:00:00 [facility] History of Ear Surgery [facility] History of Hernia Repair Inguinal Sliding [facility] History of Sinus Surgery [facility] Plan of Care Planned Activity Planned Date Details Comments Source Diagnostic Test Pending 2018-02-27 00:00:00 [place] [id number] [code = 26993] [facility] Diagnostic Test Pending 2018-02-27 00:00:00 [place] [id number] [code = 60992] [facility] Future Scheduled Test 2015-07-16 00:00:00 IMM Pneumococcal A ge 65 and Up [code = IMM Pneumococcal Age 65 and Up] [facility] Future Scheduled Test 2000 00:00:00 Screening for charlotte gnant neoplasm of colon (procedure) [code = 301272810] [facility] Instructions Concussion/Head Injury - Adult [facility] Encounters Start Date/Time End Date/Time Encounter Type Admission Type [facility] Care Department Encounter ID Source 2019-10-18 23:54:00 2019-10-19 00:51:00 [id number] 2019-10-18 08:08:00 2019-10-18 09:00:00 Departed Emergency Room 1 SHIRLEY ZUNIGA [facility] [id number] [facility] 2019-01-22 10:30:00 2019-01-22 10:30:00 Appointment; MARKIE BARRERA M.D. BYRD, MICHAEL, M.D. [id number] [facility] 2018-11-18 14:30:00 2018-11-18 14:30:00 Appointment; MARKIE BARRERA M.D. BYRD, MICHAEL, M.D. [facility] [id number] [facility] 2018-11-12 04:22:00 2018-11-12 07:30:00 Departed Emergency Room 1 MARKIE JACKSON [facility] [id number] [facility] 2018-10-22 02:56:00 2018-10-22 04:55:00 Departed Emergency Room 1 MARKIE JACKSON [facility] [id number] [facility] 2018-08-28 13:00:00 2018-08-28 13:00:00 Appointment; MARKIE BARRERA M.D. BYRD, MICHAEL, M.D. [facility] [id number] [facility] 2018-07-17 10:30:00 2018-07-17 10:30:00 Appointment; MARKIE BARRERA M.D. BYRD, MICHAEL, M.D. [facility] [id number] [facility] 2018-05-19 08:50:00 2018-06-17 23:59:00 Discharged Recurring [facility] [id number] [facility] 2018-04-18 11:14:00 2018-05-18 23:59:00 Discharged Recurring [facility] [id number] [facility] 2018-03-25 10:06:00 2018-04-17 23:59:00 Discharged Recurring [facility] [id number] [facility] 2018-04-15 14:52:00 2018-04-15 14:52:00 Registered Clinic 3 MINERVA ISBELL [facility] [id number] [facility] 2018-02-27 13:00:00 2018-02-27 13:00:00 Appointment; MARKIE BARRERA M.D. BYRD, MICHAEL, M.D. [facility] Otorhinolaryngology [place] [id number] [facility] 2017-11-07 14:30:00 2017-11-07 14:30:00 Appointment; MARKIE BARRERA M.D. BYRD, MICHAEL, M.D. [facility] [id number] [facility] 2017-10-31 10:30:00 2017-10-31 10:30:00 Appointment; MARKIE BARRERA M.D. BYRD, MICHAEL, M.D. [facility] [address] [id number] [facility] 2017-08-08 13:45:00 2017-08-08 13:45:00 Appointment; MARKIE BARRERA M.D. BYRD, MICHAEL, M.D. [facility] [id number] [facility] 2017-08-05 10:26:00 2017-08-05 10:26:00 Registered Emergency Room [facility] [id number] [facility] 2017-06-07 10:30:00 2017-06-07 10:30:00 Appointment; MARKIE BARRERA M.D. BYRD, MICHAEL, M.D. [facility] [id number] [facility] 2017-03-29 00:00:00 2017-03-29 00:00:00 Outpatient [facility] [id number] [facility] 2017-03-14 11:00:00 2017-03-14 11:00:00 Appointment; MARKIE BARRERA M.D. BYRD, MICHAEL, M.D. [facility] [id number] [facility] 2016-12-26 11:13:40 2016-12-26 11:13:40 Outpatient [facility] [id number] [facility] 2016-12-26 11:05:25 2016-12-26 11:05:25 Outpatient [facility] [id number] [facility] 2016-12-07 09:30:00 2016-12-07 09:30:00 Appointment; MARKIE BARRERA M.D. BYRD, MICHAEL, M.D. [facility] UTP [id number] [facility] 2016-10-11 14:04:40 2016-10-11 14:04:40 Outpatient [facility] [id number] [facility] 2016-03-23 15:45:00 2016-03-23 15:45:00 Appointment; MARKIE BARRERA M.D. BYRD, MICHAEL, M.D. [facility] UTP [id number] [facility] 2015-09-30 11:00:00 2015-09-30 11:00:00 Appointment; MARKIE BARRERA M.D. BYRD, MICHAEL, M.D. U[facility] UTP [id number] [facility] 2015-03-25 10:30:00 2015-03-25 10:30:00 Appointment; MARKIE BARRERA M.D. BYRD, MICHAEL, M.D. [facility] UTP [id number] [facility] Results Test Description Test Time Test Comments Results Result Comments Source CT BRAIN WO 2019-10-18 08:45:00 [place] [address] Patient Name: GIGI PETERSEN MR #: [id number] : 1950 Age/Sex: 69/M Req #: [id number] Adm Physician: Ordered by: SHIRLEY ZUNIGA DO Report #: [id number] Location: ER Room/Bed: Procedure: [id number] CT/CT BRAIN WO Exam Date: 10/18/19 Exam Time: 08 REPORT STATUS: Signed Examination: CT head without [...] ZUNIGA DO CHEST SINGLE (PORTABLE) 2019-10-18 08:16:00 [place] [address] Patient Name: GIGI GOMEZ MR #: [id number] : 1950 Age/Sex: 69/M Req #: [id number] Adm Physician: Ordered by: SHIRLEY ZUNIGA DO Report #: [id number] Location: Room/Bed: Procedure: [id number] DX/CHEST SINGLE (PORTABLE) Exam Date: 10/18/19 Exam [...] Count (test code = 6690-2) 5.29 4.8-10.8 [facility] erythrocytes automated count (number/volume)2019-10-18 07:44:00* Test Item Value Reference Range Interpretation Comments Red Blood Count (test code = 789-8) 4.68 4.3-5.7 [facility] hemoglobin measurement (moles/volume)2019-10-18 07:44:00* Test Item Value Reference Range Interpretation Comments Hemoglobin (test code = 87816-9) 14.2 14.0-18.0 [facility]vine[facility]ated blood hematocrit (volume fraction)2019-10-18 07:44:00* Test Item Value Reference Range Interpretation Comments Hematocrit (test code = 4544-3) 42.6 38.2-49.6 [facility]vine[facility] erythrocyte mean corpuscular [id number] 07:44:00* Test Item Value Reference Range Interpretation Comments Mean Corpuscular Volume (test code = 787-2) 91.0 81-99 [facility]vine[facility] erythrocyte mean corpuscular hemoglobin (mass per erythrocyte)2019-10-18 07:44:00* Test Item Value Reference Range Interpretation Comments Mean Corpuscular Hemoglobin (test code = 785-6) 30.3 28-32 [facility]vine[facility] erythrocyte mean corpuscular hemoglobin concentration measurement (mass/volume)2019-10-18 07:44:00* Test Item Value Reference Range Interpretation Comments Mean Corpuscular Hemoglobin Concent (test code = 786-4) 33.3 31-35 [facility]vineRDW SqqUw-[id number] 07:44:00* Test Item Value Reference Range Interpretation Comments Red Cell Distribution Width (test code = 92403-1) 12.7 11.7 -14.4 [facility]vine[facility] blood platelet count (count/volume)2019-10-18 07:44:00* Test Item Value Reference Range Interpretation Comments Platelet Count (test code = 777-3) 147 140-360 [facility] blood segmented neutrophil count as percentage of total vxqbbzatyi4568-30-80 07:44:00* Test Item Value Reference Range Interpretation Comments Neutrophils (%) (Auto) (test code = 99910-8) 63.8 38.7-80.0 [facility]vine[facility] blood lymphocyte count as percentage ot total wkeqdyqlld9540-11-44 07:44:00* Test Item Value Reference Range Interpretation Comments Lymphocytes (%) (Auto) (test code = 736-9) 25.9 18.0-39.1 [facility]vineAutnovant health / nhrmced blood monocyte count as percentage of total wzwcusevzs4252-15-06 07:44:00* Test Item Value Reference Range Interpretation Comments Monocytes (%) (Auto) (test code = 5905-5) 7.6 4.4-11.3 [facility]vine[facility] blood eosinophil count as percentage of total elqgcdkyfc5389-95-26 07:44:00* Test Item Value Reference Range Interpretation Comments Eosinophils (%) (Auto) (test code = 713-8) 2.1 0.0-6.0 [facility]vine[facility] blood basophil count as percentage of total zyoncjalnd9010-01-31 07:44:00* Test Item Value Reference Range Interpretation Comments Basophils (%) (Auto) (test code = 706-2) 0.4 0.0-1.0 [facility]vineFluoroscopic procedure less than one hour khpfjnsk7400-29-08 07:44:00* Test Item Value Reference Range Interpretation Comments IM GRANULOCYTES % (test code = IM GRANULOCYTES %) 0.2 0.0- 1.0 [facility]vine[facility] blood neutrophil count 2019-10-18 07:44:00* Test Item Value Reference Range Interpretation Comments Neutrophils # (Auto) (test code = 751-8) 3.4 2.1-6.9 [facility]vineBlood lymphocytes count (number/volume) 2019-10-18 07:44:00* Test Item Value Reference Range Interpretation Comments Lymphocytes # (Auto) (test code = 26539-0) 1.4 1.0-3.2 [facility] monocytes automated count (number/volume)2019-10-18 07:44:00* Test Item Value Reference Range Interpretation Comments Monocytes # (Auto) (test code = 742-7) 0.4 0.2-0.8 [facility]vineAutomated blood eosinophil count 2019-10-18 07:44:00* Test Item Value Reference Range Interpretation Comments Eosinophils # (Auto) (test code = 711-2) 0.1 0.0-0.4 [facility]vineAutomated blood basophil count (count/volume)2019-10-18 07:44:00* Test Item Value Reference Range Interpretation Comments Basophils # (Auto) (test code = 704-7) 0.0 0.0-0.1 [facility]vineFluoroscopic procedure less than one hour [id number] 07:44:00* Test Item Value Reference Range Interpretation Comments Absolute Immature Granulocyte (auto (shanika t code = Absolute Immature Granulocyte (auto) 0.01 0-0.1 [facility] sodium measurement (moles/volume)2019-10-18 07:44:00* Test Item Value Reference Range Interpretation Comments Sodium Level (test code = 2951-2) 138 136-145 [facility] plasma potassium measurement (moles/volume)2019-10-18 07:44:00* Test Item Value Reference Range Interpretation Comments Potassium Level (test code = 2823-3) 4.0 3.5-5.1 [facility] plasma chloride measurement (moles/volume)2019-10-18 07:44:00* Test Item Value Reference Range Interpretation Comments Chloride Level (test code = 2075-0) 106 98-107 [facility] or plasma carbon dioxide, total measurement (moles/volume)2019-10-18 07:44:00* Test Item Value Reference Range Interpretation Comments Carbon Dioxide Level (test code = 2028-9) 20 22-29 [facility] or plasma anion wen2392-01-29 07:44:00* Test Item Value Reference Range Interpretation Comments Anion Gap (test code = 19568-7) 16.0 8-16 [facility] or plasma urea nitrogen measurement (mass/volume)2019-10-18 07:44:00* Test Item Value Reference Range Interpretation Comments Blood Urea Nitrogen (test code = 3094-0) 13 7-26 [facility] plasma creatinine measurement (mass/volume)2019-10-18 07:44:00* Test Item Value Reference Range Interpretation Comments Creatinine (test code = 2160-0) 0.99 0.72-1.25 [facility] or plasma urea nitrogen/creatinine mass hooff4162-35-48 07:44:00* Test Item Value Reference Range Interpretation Comments BUN/Creatinine Ratio (test code = 3097-3) 13 6-25 [facility]vineEstimated glomerular filtration rate (GFR) johrnenljttvm8625-26-58 07:44:00* Test Item Value Reference Range Interpretation Comments Estimat Glomerular Filtration Rate (test code = 430430926) > 60 >60 Ranges were taken from the National Kidney Disease Education Program and the [facility] Kid[facility] Foundation literature.Reference ranges:60 or greater: Ttecoc36-17 ( for 3 consecutive months): Chronic kidney disease 15 or less: Kidney failureB[facility] Scott & [facility] GrapevineGlucose lmekaewcfcw0993-43-24 07:44:00* Test Item Value Reference Range Interpretation Comments Glucose Level (test code = IXE9140) 269 74-118 [facility] or plasma calcium measurement (mass/volume)2019-10-18 07:44:00* Test Item Value Reference Range Interpretation Comments Calcium Level (test code = 57448-6) 8.7 8.4-10.2 [facility] total bilirubin measurement (mass/volume)2019-10-18 07:44:00* Test Item Value Reference Range Interpretation Comments Total Bilirubin (test code = 1975-2) 0.6 0.2-1.2 [facility]vineFluoroscopic procedure less than one hour upiotubm7642-68-44 07:44:00* Test Item Value Reference Range Interpretation Comments Aspartate Amino Transf (AST/SGOT) (test code = Aspartate Amino Transf (AST/SGOT)) 20 5-34 [facility] Hospitaler[facility] or plasma alanine aminotransferase measurement (enzymatic activity/volume)2019-10-18 07:44:00* Test Item Value Reference Range Interpretation Comments Alanine Aminotransferase (ALT/SGPT) (test code = 1742-6) 28 0-55 [facility] protein measurement (mass/volume)2019-10-18 07:44:00* Test Item Value Reference Range Interpretation Comments Total Protein (test code = 2885-2) 6.4 6.5-8.1 [facility] Hospitaler[facility] plasma albumin measurement (mass/volume)2019-10-18 07:44:00* Test Item Value Reference Range Interpretation Comments Albumin (test code = 1751-7) 3.5 3.5-5.0 [facility]vinePlasma globulin measurement (mass/volume) 2019-10-18 07:44:00* Test Item Value Reference Range Interpretation Comments Globulin (test code = 79066-5) 2.9 2.3-3.5 [facility] Hospitaler[facility] plasma albumin/globulin mass utwom4552-02-23 07:44:00* Test Item Value Reference Range Interpretation Comments Albumin/Globulin Ratio (test code = 1759-0) 1.2 0.8-2.0 [facility] alkaline phosphatase measurement (enzymatic activity/volume)2019-10-18 07:44:00* Test Item Value Reference Range Interpretation Comments Alkaline Phosphatase (test code = 6768-6) 69 40-150 [facility] GrapevineBlood leukocytes automated count (number/volume)2019-10-18 07:44:00* Test Item Value Reference Range Interpretation Comments White Blood Count (test code = 6690-2) 5.29 4.8-10.8 [facility]vineBlwad[facility] erythrocytes automated count (number/volume)2019-10-18 07:44:00* Test Item Value Reference Range Interpretation Comments Red Blood Count (test code = 789-8) 4.68 4.3-5.7 [facility]vineBlood hemoglobin measurement (moles/volume)2019-10-18 07:44:00* Test Item Value Reference Range Interpretation Comments Hemoglobin (test code = 02947-2) 14.2 14.0-18.0 [facility] GrapevineAutomated blood hematocrit (volume fraction)2019-10-18 07:44:00* Test Item Value Reference Range Interpretation Comments Hematocrit (test code = 4544-3) 42.6 38.2-49.6 [facility] GrapevineAutomated erythrocyte mean corpuscular xcrekg0154-18-16 07:44:00* Test Item Value Reference Range Interpretation Comments Mean Corpuscular Volume (test code = 787-2) 91.0 81-99 [facility] GrapevineAutomated erythrocyte mean corpuscular hemoglobin (mass per erythrocyte)2019-10-18 07:44:00* Test Item Value Reference Range Interpretation Comments Mean Corpuscular Hemoglobin (test code = 785-6) 30.3 28-32 [facility] GrapevineAutomated erythrocyte mean corpuscular hemoglobin concentration measurement (mass/volume)2019-10-18 07:44:00* Test Item Value Reference Range Interpretation Comments Mean Corpuscular Hemoglobin Concent (test code = 786-4) 33.3 31-35 [facility] GrapevineRDW CihSj-Cml2475-73-30 07:44:00* Test Item Value Reference Range Interpretation Comments Red Cell Distribution Width (test code = 39075-0) 12.7 11.7 -14.4 [facility] GrapevineAutomated blood platelet count (count/volume)2019-10-18 07:44:00* Test Item Value Reference Range Interpretation Comments Platelet Count (test code = 777-3) 147 140-360 [facility] GrapevineAutomated blood segmented neutrophil count as percentage of total pobrhhflgf7353-35-25 07:44:00* Test Item Value Reference Range Interpretation Comments Neutrophils (%) (Auto) (test code = 14711-9) 63.8 38.7-80.0 [facility] GrapevineAutomated blood lymphocyte count as percentage ot total ghloiycsab5824-90-17 07:44:00* Test Item Value Reference Range Interpretation Comments Lymphocytes (%) (Auto) (test code = 736-9) 25.9 18.0-39.1 [facility] GrapevineAutomated blood monocyte count as percentage of total vdiahjjlrs3639-04-23 07:44:00* Test Item Value Reference Range Interpretation Comments Monocytes (%) (Auto) (test code = 5905-5) 7.6 4.4-11.3 [facility] GrapevineAutomated blood eosinophil count as percentage of total kxyyienhdt8901-00-56 07:44:00* Test Item Value Reference Range Interpretation Comments Eosinophils (%) (Auto) (test code = 713-8) 2.1 0.0-6.0 [facility] GrapevineAutomated blood basophil count as percentage of total oxivftmywd6772-20-08 07:44:00* Test Item Value Reference Range Interpretation Comments Basophils (%) (Auto) (test code = 706-2) 0.4 0.0-1.0 [facility]vineFluoroscopic procedure less than one hour cenlcpdi7204-96-65 07:44:00* Test Item Value Reference Range Interpretation Comments IM GRANULOCYTES % (test code = IM GRANULOCYTES %) 0.2 0.0- 1.0 [facility] GrapevineAutomated blood neutrophil count 2019-10-18 07:44:00* Test Item Value Reference Range Interpretation Comments Neutrophils # (Auto) (test code = 751-8) 3.4 2.1-6.9 [facility]vineBlood lymphocytes count (number/volume) 2019-10-18 07:44:00* Test Item Value Reference Range Interpretation Comments Lymphocytes # (Auto) (test code = 58388-7) 1.4 1.0-3.2 [facility]vineBlwad[facility] clinic monocytes automated count (number/volume)2019-10-18 07:44:00* Test Item Value Reference Range Interpretation Comments Monocytes # (Auto) (test code = 742-7) 0.4 0.2-0.8 [facility] GrapevineAutomated blood eosinophil count 2019-10-18 07:44:00* Test Item Value Reference Range Interpretation Comments Eosinophils # (Auto) (test code = 711-2) 0.1 0.0-0.4 [facility] GrapevineAutomated blood basophil count (count/volume)2019-10-18 07:44:00* Test Item Value Reference Range Interpretation Comments Basophils # (Auto) (test code = 704-7) 0.0 0.0-0.1 [facility]rapevineFluoroscopic procedure less than one hour mxhkarur3114-17-36 07:44:00* Test Item Value Reference Range Interpretation Comments Absolute Immature Granulocyte (auto (shanika t code = Absolute Immature Granulocyte (auto) 0.01 0-0.1 [facility] sodium measurement (moles/volume)2019-10-18 07:44:00* Test Item Value Reference Range Interpretation Comments Sodium Level (test code = 2951-2) 138 136-145 [facility]er[facility] plasma potassium measurement (moles/volume)2019-10-18 07:44:00* Test Item Value Reference Range Interpretation Comments Potassium Level (test code = 2823-3) 4.0 3.5-5.1 [facility]er[facility] plasma chloride measurement (moles/volume)2019-10-18 07:44:00* Test Item Value Reference Range Interpretation Comments Chloride Level (test code = 2075-0) 106 98-107 [facility]er[facility] or plasma carbon dioxide, total measurement (moles/volume)2019-10-18 07:44:00* Test Item Value Reference Range Interpretation Comments Carbon Dioxide Level (test code = 2028-9) 20 22-29 [facility]er[facility] plasma anion ozt5998-24-68 07:44:00* Test Item Value Reference Range Interpretation Comments Anion Gap (test code = 80479-0) 16.0 8-16 [facility] urea nitrogen measurement (mass/volume)2019-10-18 07:44:00* Test Item Value Reference Range Interpretation Comments Blood Urea Nitrogen (test code = 3094-0) 13 7-26 [facility] plasma creatinine measurement (mass/volume)2019-10-18 07:44:00* Test Item Value Reference Range Interpretation Comments Creatinine (test code = 2160-0) 0.99 0.72-1.25 [facility]er[facility] plasma urea nitrogen/creatinine mass uquma2921-76-43 07:44:00* Test Item Value Reference Range Interpretation Comments BUN/Creatinine Ratio (test code = 3097-3) 13 6-25 [facility] GrapevineEstimated glomerular filtration rate (GFR) ysivgrmdqgvii4873-20-19 07:44:00* Test Item Value Reference Range Interpretation Comments Estimat Glomerular Filtration Rate (test code = 651569624) > 60 >60 Ranges were taken from the National Kidney Disease Education Program and the [facility] Kid[facility] Foundation literature.Reference ranges:60 or greater: Ogxjdp72-50 ( for 3 consecutive months): Chronic kidney disease 15 or less: Kidney failureBaylor Scott & [facility] Center – GrapevineGlucose rwkbrdwywgy3948-97-17 07:44:00* Test Item Value Reference Range Interpretation Comments Glucose Level (test code = AMI2597) 269 74-118 [facility]er[facility] calcium measurement (mass/volume)2019-10-18 07:44:00* Test Item Value Reference Range Interpretation Comments Calcium Level (test code = 57507-0) 8.7 8.4-10.2 [facility]er[facility] plasma total bilirubin measurement (mass/volume)2019-10-18 07:44:00* Test Item Value Reference Range Interpretation Comments Total Bilirubin (test code = 1975-2) 0.6 0.2-1.2 [facility] GrapevineFluoroscopic procedure less than one hour atppagjy9971-33-16 07:44:00* Test Item Value Reference Range Interpretation Comments Aspartate Amino Transf (AST/SGOT) (test code = Aspartate Amino Transf (AST/SGOT)) 20 5-34 [facility]er[facility] plasma alanine aminotransferase measurement (enzymatic activity/volume)2019-10-18 07:44:00* Test Item Value Reference Range Interpretation Comments Alanine Aminotransferase (ALT/SGPT) (test code = 1742-6) 28 0-55 [facility]er[facility] plasma protein measurement (mass/volume)2019-10-18 07:44:00* Test Item Value Reference Range Interpretation Comments Total Protein (test code = 2885-2) 6.4 6.5-8.1 [facility]er[facility] or plasma albumin measurement (mass/volume)2019-10-18 07:44:00* Test Item Value Reference Range Interpretation Comments Albumin (test code = 1751-7) 3.5 3.5-5.0 [facility] GrapevinePlasma globulin measurement (mass/volume) 2019-10-18 07:44:00* Test Item Value Reference Range Interpretation Comments Globulin (test code = 48680-5) 2.9 2.3-3.5 [facility]er[facility] plasma albumin/globulin mass agtcn0361-03-77 07:44:00* Test Item Value Reference Range Interpretation Comments Albumin/Globulin Ratio (test code = 1759-0) 1.2 0.8-2.0 [facility]er[facility] plasma alkaline phosphatase measurement (enzymatic activity/volume)2019-10-18 07:44:00* Test Item Value Reference Range Interpretation Comments Alkaline Phosphatase (test code = 6768-6) 69 40-150 [facility] TLIAH7933-85-61 06:03:00 [facility] [address] [address] Patient Name: GIGI GOMEZ MR #: [id number] : 1950 Age/Sex: 68/M Req #: [id number] Adm Physician: Ordered by: MARKIE JACKSON MD Report #: [id number] Location: ER Room/Bed: Procedure: DX/CHEST 2 VIEWS Exam Date: 11/12/18 Exam Ti me: 0538 REPORT STATUS: Signed E XAMINATION: CHEST 2 VIEWS INDICATION: sob [id number] Y COMPARISON: 10/22/2018 FINDINGS: PA and [...] COPY TO: MARKIE JACKSON MD B-Type Natriuretic Rukgfrh2510-28-61 05:21:00* Test Item Value Reference Range Interpretation Comments B-Type Natriuretic Peptide (test code = 27729-7) < 10.0 0-100 [facility] GrapevineD-Dimer Quantitative (PE/DVT)2018-11-12 05:12:00* Test Item Value Reference Range Interpretation Comments D-Dimer Quantitative (PE/DVT) (test code = 09347-2) 0.39 0. 00-0.45 [facility] GrapevineCreatine Kinase RW7021-27-43 05:12:00* Test Item Value Reference Range Interpretation Comments Creatine Kinase MB (test code = 61414-3) 0.80 0-5.0 [facility] GrapevineTroponin P9354-82-09 05:12:00* Test Item Value Reference Range Interpretation Comments Troponin I (test code = NIV8518) 0.005 0-0.300 [facility] Hospitalodium Ejyrq5892-68-60 05:11:00* Test Item Value Reference Range Interpretation Comments Sodium Level (test code = 2951-2) 137 136-145 [facility] GrapevinePotassium Kmvdg6389-37-56 05:11:00* Test Item Value Reference Range Interpretation Comments Potassium Level (test code = 2823-3) 4.4 3.5-5.1 [facility]vineChloride Udyfz0967-11-65 05:11:00* Test Item Value Reference Range Interpretation Comments Chloride Level (test code = 2075-0) 100 98-107 [facility] GrapevineCarbon Dioxide Ebcqg0333-90-18 05:11:00* Test Item Value Reference Range Interpretation Comments Carbon Dioxide Level (test code = 2028-9) 28 22-29 [facility] GrapevineAnion Ogc9854-03-18 05:11:00* Test Item Value Reference Range Interpretation Comments Anion Gap (test code = 37635-7) 13.4 8-16 [facility] GrapevineBlood Urea Zeensbda2801-31-56 05:11:00* Test Item Value Reference Range Interpretation Comments Blood Urea Nitrogen (test code = 3094-0) 16 7-26 [facility] GrapevineCreatinine2019-09-25 05:11:00* Test Item Value Reference Range Interpretation Comments Creatinine (test code = 2160-0) 0.84 0.72-1.25 [facility] GrapevineBUN/Creatinine Yymgq2518-43-31 05:11:00* Test Item Value Reference Range Interpretation Comments BUN/Creatinine Ratio (test code = 3097-3) 19 6-25 [facility] GrapevineEstimat Glomerular Filtration Rate 2018-11-12 05:11:00* Test Item Value Reference Range Interpretation Comments Estimat Glomerular Filtration Rate (test code = 059453630) > 60 >60 Ranges were taken from the National Kidney Disease Education Program and the [facility] Kidney Foundation literature.Reference ranges:60 or greater: Sgiicr51-21 ( for 3 consecutive months): Chronic kidney disease 15 or less: Kidney failureBaylor Scott & [facility] Center – GrapevineGlucose Xktmx5904-58-96 05:11:00* Test Item Value Reference Range Interpretation Comments Glucose Level (test code = BJR3481) 137 74-118 H [facility] GrapevineCalcium Bplsi6594-71-18 05:11:00* Test Item Value Reference Range Interpretation Comments Calcium Level (test code = 26343-0) 9.5 8.4-10.2 [facility] GrapevineTotal Lkplrmhkj1009-39-92 05:11:00* Test Item Value Reference Range Interpretation Comments Total Bilirubin (test code = 1975-2) 0.8 0.2-1.2 [facility] GrapevineAspartate Amino Transf (AST/SGOT) 2018-11-12 05:11:00* Test Item Value Reference Range Interpretation Comments Aspartate Amino Transf (AST/SGOT) (test code = Aspartate Amino Transf (AST/SGOT)) 25 5-34 [facility] GrapevineAlanine Aminotransferase (ALT/SGPT) 2018-11-12 05:11:00* Test Item Value Reference Range Interpretation Comments Alanine Aminotransferase (ALT/SGPT) (test code = 1742-6) 29 0-55 [facility] GrapevineTotal Mwqohud1364-00-11 05:11:00* Test Item Value Reference Range Interpretation Comments Total Protein (test code = 2885-2) 6.6 6.5-8.1 [facility] GrapevineAlbumin2019-09-25 05:11:00* Test Item Value Reference Range Interpretation Comments Albumin (test code = 1751-7) 3.5 3.5-5.0 [facility] GrapevineGlobulin2019-09-25 05:11:00* Test Item Value Reference Range Interpretation Comments Globulin (test code = 14741-7) 3.1 2.3-3.5 [facility] GrapevineAlbumin/Globulin Arafb1751-79-58 05:11:00 * Test Item Value Reference Range Interpretation Comments Albumin/Globulin Ratio (test code = 1759-0) 1.1 0.8-2.0 [facility] GrapevineAlkaline Mqskhlyjmup6239-71-60 05:11:00* Test Item Value Reference Range Interpretation Comments Alkaline Phosphatase (test code = 6768-6) 86 40-150 [facility] GrapevineCreatine Zbmnvs9380-19-25 05:11:00* Test Item Value Reference Range Interpretation Comments Creatine Kinase (test code = 2157-6) 52 30-200 [facility] GrapevineWhite Blood Qwvhe1250-10-70 04:48:00* Test Item Value Reference Range Interpretation Comments White Blood Count (test code = 6690-2) 5.82 4.8-10.8 [facility] GrapevineRed Blood Repjt4261-01-10 04:48:00* Test Item Value Reference Range Interpretation Comments Red Blood Count (test code = 789-8) 4.71 4.3-5.7 [facility] GrapevineHemoglobin2019-09-25 04:48:00* Test Item Value Reference Range Interpretation Comments Hemoglobin (test code = 55913-4) 14.5 14.0-18.0 [facility] GrapevineHematocrit2019-09-25 04:48:00* Test Item Value Reference Range Interpretation Comments Hematocrit (test code = 4544-3) 42.5 38.2-49.6 [facility] GrapevineMean Corpuscular Qxlvqb4785-58-61 04:48:00* Test Item Value Reference Range Interpretation Comments Mean Corpuscular Volume (test code = 787-2) 90.2 81-99 [facility] GrapevineMean Corpuscular Qbdtpsxtak2339-93-43 04:48:00* Test Item Value Reference Range Interpretation Comments Mean Corpuscular Hemoglobin (test code = 785-6) 30.8 28-32 [facility] GrapevineMean Corpuscular Hemoglobin Concent 2018-11-12 04:48:00* Test Item Value Reference Range Interpretation Comments Mean Corpuscular Hemoglobin Concent (test code = 786-4) 34.1 31-35 [facility] GrapevineRed Cell Distribution Hflyo9230-34-09 04:48:00* Test Item Value Reference Range Interpretation Comments Red Cell Distribution Width (test code = 21240-9) 11.9 11.7 -14.4 [facility] GrapevinePlatelet Jbuig8515-65-66 04:48:00* Test Item Value Reference Range Interpretation Comments Platelet Count (test code = 777-3) 225 140-360 [facility] GrapevineNeutrophils (%) (Auto)2018-11-12 04:48:00 * Test Item Value Reference Range Interpretation Comments Neutrophils (%) (Auto) (test code = 17869-0) 46.7 38.7-80.0 [facility] GrapevineLymphocytes (%) (Auto)2018-11-12 04:48:00 * Test Item Value Reference Range Interpretation Comments Lymphocytes (%) (Auto) (test code = 736-9) 39.2 18.0-39.1 H [facility] GrapevineMonocytes (%) (Auto)2018-11-12 04:48:00* Test Item Value Reference Range Interpretation Comments Monocytes (%) (Auto) (test code = 5905-5) 9.8 4.4-11.3 [facility]vineEosinophils (%) (Auto)2018-11-12 04:48:00 * Test Item Value Reference Range Interpretation Comments Eosinophils (%) (Auto) (test code = 713-8) 3.3 0.0-6.0 [facility] GrapevineBasophils (%) (Auto)2018-11-12 04:48:00* Test Item Value Reference Range Interpretation Comments Basophils (%) (Auto) (test code = 706-2) 0.7 0.0-1.0 [facility] GrapevineIM GRANULOCYTES %2018-11-12 04:48:00* Test Item Value Reference Range Interpretation Comments IM GRANULOCYTES % (test code = IM GRANULOCYTES %) 0.3 0.0- 1.0 [facility] GrapevineNeutrophils # (Auto)2018-11-12 04:48:00* Test Item Value Reference Range Interpretation Comments Neutrophils # (Auto) (test code = 751-8) 2.7 2.1-6.9 [facility] GrapevineLymphocytes # (Auto)2018-11-12 04:48:00* Test Item Value Reference Range Interpretation Comments Lymphocytes # (Auto) (test code = 28113-0) 2.3 1.0-3.2 [facility] GrapevineMonocytes # (Auto)2018-11-12 04:48:00* Test Item Value Reference Range Interpretation Comments Monocytes # (Auto) (test code = 742-7) 0.6 0.2-0.8 [facility]vineEosinophils # (Auto)2018-11-12 04:48:00* Test Item Value Reference Range Interpretation Comments Eosinophils # (Auto) (test code = 711-2) 0.2 0.0-0.4 [facility] GrapevineBasophils # (Auto)2018-11-12 04:48:00* Test Item Value Reference Range Interpretation Comments Basophils # (Auto) (test code = 704-7) 0.0 0.0-0.1 [facility] GrapevineAbsolute Immature Granulocyte (auto 2018-11-12 04:48:00* Test Item Value Reference Range Interpretation Comments Absolute Immature Granulocyte (auto (shanika t code = Absolute Immature Granulocyte (auto) 0.02 0-0.1 [facility] GrapevineB-Type Natriuretic Oilzixn9024-95-88 04:34:00* Test Item Value Reference Range Interpretation Comments B-Type Natriuretic Peptide (test code = 78365-0) < 10.0 0-100 [facility] GrapevineCreatine Kinase YV5150-52-24 04:21:00* Test Item Value Reference Range Interpretation Comments Creatine Kinase MB (test code = 15676-4) 0.30 0-5.0 [facility] GrapevineTroponin S9179-93-48 04:21:00* Test Item Value Reference Range Interpretation Comments Troponin I (test code = RFE1730) < 0.001 0-0.300 [facility]odium Yeekx6952-90-12 04:13:00* Test Item Value Reference Range Interpretation Comments Sodium Level (test code = 2951-2) 137 136-145 [facility] GrapevinePotassium Digqd5954-50-48 04:13:00* Test Item Value Reference Range Interpretation Comments Potassium Level (test code = 2823-3) 3.6 3.5-5.1 [facility] GrapevineChloride Oamlt2712-89-58 04:13:00* Test Item Value Reference Range Interpretation Comments Chloride Level (test code = 2075-0) 100 98-107 [facility] GrapevineCarbon Dioxide Tkbmx7889-92-26 04:13:00* Test Item Value Reference Range Interpretation Comments Carbon Dioxide Level (test code = 2028-9) 27 22-29 [facility] GrapevineAnion Hjk7726-51-75 04:13:00* Test Item Value Reference Range Interpretation Comments Anion Gap (test code = 50456-0) 13.6 8-16 [facility] GrapevineBlood Urea Xnyehuey1842-72-05 04:13:00* Test Item Value Reference Range Interpretation Comments Blood Urea Nitrogen (test code = 3094-0) 10 7-26 [facility] GrapevineCreatinine2019-09-04 04:13:00* Test Item Value Reference Range Interpretation Comments Creatinine (test code = 2160-0) 0.81 0.72-1.25 [facility] GrapevineBUN/Creatinine Ntrrh5102-34-97 04:13:00* Test Item Value Reference Range Interpretation Comments BUN/Creatinine Ratio (test code = 3097-3) 12 6-25 [facility] GrapevineEstimat Glomerular Filtration Rate 2018-10-22 04:13:00* Test Item Value Reference Range Interpretation Comments Estimat Glomerular Filtration Rate (test code = 724230469) > 60 >60 Ranges were taken from the National Kidney Disease Education Program and the [facility] Kid[facility] Foundation literature.Reference ranges:60 or greater: Zplpko50-34 ( for 3 consecutive months): Chronic kidney disease 15 or less: Kidney failureBaylor Scott & White Medical Center – GrapevineGlucose Eeczk8672-59-98 04:13:00* Test Item Value Reference Range Interpretation Comments Glucose Level (test code = UGE5771) 142 74-118 H [facility] GrapevineCalcium Xvwdi4514-43-67 04:13:00* Test Item Value Reference Range Interpretation Comments Calcium Level (test code = 46504-0) 10.3 8.4-10.2 H [facility] GrapevineTotal Zpfxfdpvb3351-71-16 04:13:00* Test Item Value Reference Range Interpretation Comments Total Bilirubin (test code = 1975-2) 0.9 0.2-1.2 [facility] GrapevineAspartate Amino Transf (AST/SGOT) 2018-10-22 04:13:00* Test Item Value Reference Range Interpretation Comments Aspartate Amino Transf (AST/SGOT) (test code = Aspartate Amino Transf (AST/SGOT)) 19 5-34 [facility] [facility]vine[facility]anine Amin[facility] (ALT/SGPT) 2018-10-22 04:13:00* Test Item Value Reference Range Interpretation Comments Alanine Aminotransferase (ALT/SGPT) (test code = 1742-6) 24 0-55 [facility]vineTotal [id number] 04:13:00* Test Item Value Reference Range Interpretation Comments Total Protein (test code = 2885-2) 6.9 6.5-8.1 [facility]vineAlbumin2019-09-04 04:13:00* Test Item Value Reference Range Interpretation Comments Albumin (test code = 1751-7) 3.8 3.5-5.0 [facility]vineGlobulin2019-09-04 04:13:00* Test Item Value Reference Range Interpretation Comments Globulin (test code = 37570-7) 3.1 2.3-3.5 [facility]vineAlbumin/Globulin [id number] 04:13:00 * Test Item Value Reference Range Interpretation Comments Albumin/Globulin Ratio (test code = 1759-0) 1.2 0.8-2.0 [facility]vineAlkaline Oybhpcymapv4769-10-64 04:13:00* Test Item Value Reference Range Interpretation Comments Alkaline Phosphatase (test code = 6768-6) 89 40-150 [facility]vineCreatine [id number] 04:13:00* Test Item Value Reference Range Interpretation Comments Creatine Kinase (test code = 2157-6) 91 30-200 [facility] GrapevineD-Dimer Quantitative (PE/DVT)2018-10-22 04:05:00* Test Item Value Reference Range Interpretation Comments D-Dimer Quantitative (PE/DVT) (test code = 63301-2) 0.44 0. 00-0.45 [facility]vineCHEST SINGLE (PORTABLE)2018-10-22 03:53:00 [facility] [address] [place] [address] Patient Name: GIGI GOMEZ MR #: [id number] : 1950 Age/Sex: 68/M Req #: [id number] Adm Physician: Ordered by: MARIKE JACKSON MD Report #: [id number] Location: ER Room/Bed: Procedure: DX/CHEST SINGLE (PORTABLE) Exam Date: 10/22/18 Exam Time: 0325 REPORT STATUS: S igned EXAMINATION: CHEST SINGLE (PORTABLE) COMPARISON: None IN DICATION: SOB [id number] Y DISCUSSION: Frontal view of the chest [...] COPY TO: MARKIE JACKSON MD White Blood [id number] 03:50:00* Test Item Value Reference Range Interpretation Comments White Blood Count (test code = 6690-2) 4.80 4.8-10.8 [facility]vineRed Blood [id number] 03:50:00* Test Item Value Reference Range Interpretation Comments Red Blood Count (test code = 789-8) 4.69 4.3-5.7 [facility]vineHemoglobin2019-09-04 03:50:00* Test Item Value Reference Range Interpretation Comments Hemoglobin (test code = 76905-6) 14.7 14.0-18.0 [facility]vineHematocrit2019-09-04 03:50:00* Test Item Value Reference Range Interpretation Comments Hematocrit (test code = 4544-3) 41.9 38.2-49.6 [facility]vineMean Corpuscular [id number] 03:50:00* Test Item Value Reference Range Interpretation Comments Mean Corpuscular Volume (test code = 787-2) 89.3 81-99 [facility] Corp[facility] Uwcgxxihoj5081-33-37 03:50:00* Test Item Value Reference Range Interpretation Comments Mean Corpuscular Hemoglobin (test code = 785-6) 31.3 28-32 [facility] Corpuscular Hemoglobin Concent 2018-10-22 03:50:00* Test Item Value Reference Range Interpretation Comments Mean Corpuscular Hemoglobin Concent (test code = 786-4) 35.1 31-35 H [facility]vineRed Cell Distribution [id number] 03:50:00* Test Item Value Reference Range Interpretation Comments Red Cell Distribution Width (test code = 23521-0) 12.0 11.7 -14.4 [facility]vinePlatelet [id number] 03:50:00* Test Item Value Reference Range Interpretation Comments Platelet Count (test code = 777-3) 190 140-360 [facility]vineNeutrophils (%) (Auto)2018-10-22 03:50:00 * Test Item Value Reference Range Interpretation Comments Neutrophils (%) (Auto) (test code = 90039-5) 50.5 38.7-80.0 [facility]vineLymphocytes (%) (Auto)2018-10-22 03:50:00 * Test Item Value Reference Range Interpretation Comments Lymphocytes (%) (Auto) (test code = 736-9) 35.4 18.0-39.1 [facility]vineMonocytes (%) (Auto)2018-10-22 03:50:00* Test Item Value Reference Range Interpretation Comments Monocytes (%) (Auto) (test code = 5905-5) 9.4 4.4-11.3 [facility]vineEosinophils (%) (Auto)2018-10-22 03:50:00 * Test Item Value Reference Range Interpretation Comments Eosinophils (%) (Auto) (test code = 713-8) 3.5 0.0-6.0 [facility]vineBasophils (%) (Auto)2018-10-22 03:50:00* Test Item Value Reference Range Interpretation Comments Basophils (%) (Auto) (test code = 706-2) 0.6 0.0-1.0 [facility]vineIM GRANULOCYTES %2018-10-22 03:50:00* Test Item Value Reference Range Interpretation Comments IM GRANULOCYTES % (test code = IM GRANULOCYTES %) 0.6 0.0- 1.0 [facility]vineNeutrophils # (Auto)2018-10-22 03:50:00* Test Item Value Reference Range Interpretation Comments Neutrophils # (Auto) (test code = 751-8) 2.4 2.1-6.9 [facility]vineLymphocytes # (Auto)2018-10-22 03:50:00* Test Item Value Reference Range Interpretation Comments Lymphocytes # (Auto) (test code = 90893-2) 1.7 1.0-3.2 [facility]vineMonocytes # (Auto)2018-10-22 03:50:00* Test Item Value Reference Range Interpretation Comments Monocytes # (Auto) (test code = 742-7) 0.5 0.2-0.8 [facility]vineEosinophils # (Auto)2018-10-22 03:50:00* Test Item Value Reference Range Interpretation Comments Eosinophils # (Auto) (test code = 711-2) 0.2 0.0-0.4 [facility]vineBasophils # (Auto)2018-10-22 03:50:00* Test Item Value Reference Range Interpretation Comments Basophils # (Auto) (test code = 704-7) 0.0 0.0-0.1 [facility]vineAbsolute Immature Granulocyte (auto 2018-10-22 03:50:00* Test Item Value Reference Range Interpretation Comments Absolute Immature Granulocyte (auto (shanika t code = Absolute Immature Granulocyte (auto) 0.03 0-0.1 [facility] X[facility] SPINE 1 V SPEC [id number] 09:53:00Patient Name: GIGI MONROE Unit No: [id number] EXAMS: CPT CODE: [id number] XR SPINE 1 V SPEC LEVEL 96934 Examination: Single lateral intraoperative view of the [...] CHRISTINE M.D. CC: Abundio Mccain MD Technologist: aSi Begum Fluoro Time: DAP (Gy m2): Air Kerma (mGy): Trscr Dt/Tm: 10/04/2018 (0953) by:[email or web address] Printed Date/Time: 10/04/2018 (0956) Name: GIGI MONROE [facility] Phys: Abundio Arguello MD [address] : 1950 Age: 68 Sex: [place] [address] Loc: P.0575 1 Exam Date: 10/02/2018 Status: ADM IN PH: FAX: PAGE 1 Signed Report SURGICAL [id number] 16:56:00 RUN DATE: 10/03/18 Alessandra WHITMAN *LIVE* PAGE 1 RUN TIME: 1656 Specimen Inqui ry RUN USER: INTERFACE PATIENT: GIGI MONROE ACCT #: B [id number] LOC: P.5N POD B U #: [id number] AGE/SX: 68/M ROOM: [facility] RE10/02/18REG DR: Abundio Mccain MD : [birth year] BED: 1 DIS: STATUS: ADM Nico TLOC: SPEC #: [id number] RECD: 10/02/18 STATUS: RUSSELL REED #: [id number] ENZO: 10/02/[address] [facility] [address]: Abundio Mccain MD ENTERED: 10/02/18 SP [...] in aggregate. No discrete lesions are seen. Sugar Trucker sections are submitted in a single cassette. SUTURE GAUGER/eb MICROSCOPIC DESCRIPTION No malignancy is identified. Signed SIGNATURE ON FILE Janey Russell 10/03/18 5949 END OF REPORT PROTHROMBIN [id number] 11:14:00* Test Item Value Reference Range Interpretation [...] heart valves; 2.5-3.5recurrent systemic embolism. THROMBOPLASTIN TIME [id number] 11:14:00* Test Item Value Reference Range Interpretation Comments THROMBOPLASTIN TIME PARTIAL (test code = PTT) 33.0 SECONDS 26.0-35. 9 N INTERPRETATIVE DATA:Therapeutic range: Unfractionated heparin:47 - 71 seconds Argatroban:1.5 to 3 times the baseline PTT COMPREHENSIVE METABOLIC [id number] 10:54:00* Test Item Value Reference Range Interpretation [...] CHD)40-59mg/dL: Borderline Risk LDL Cholesterol<100mg/dL: Desirable LDL-C mxkkydynidzax163-399cs/dL: Borderline High Risk LDL-C iygzqqystgxpz410-045zr/dL: High risk LDL-C concentration HDL-LDL Cholesterol is affected by a number of factors suchas smoking, age and sex.~~~~~~~~~~~~~~~~~~~~~~~~~~~~~~~~~~~~~~~~~~~~~~~~~~~~~~~~~~~~ URINALYSIS [id number] 10:49:00* Test Item Value Reference Range Interpretation [...] = LEUU) NEGATIVE NEGA TIVE CBC W/AUTO [id number] 10:48:00* Test Item Value Reference Range Interpretation [...] x10 3/uL 0.0-0.20 N MRI SPINE LUMBAR [id number] 08:32:00 [place] [address] Patient Name: GIGI GOMEZ MR #: [id number] : 1950 Age/Sex: 67/M Req #: [id number] Adm Physician: Ordered by: MINERVA ISBELL MD Report #: [id number] Location: MRI Room/Bed: Procedure: [id number] MRI/MRI SPINE LUMBAR WO Exam Date: 04/15/18 [...]
[2019-10-19 19:17] LABS: BASOPHILS % 0.4 % (0.0-1.0); EOSINOPHILS # (AUTO) 0.1 (0.0-0.4); EOSINOPHILS % 1.9 % (0.0-6.0); HEMATOCRIT 42.6 % (38.2-49.6); HEMOGLOBIN 14.2 g/dL (14.0-18.0); LYMPHOCYTES # (AUTO) 1.7 (1.0-3.2); LYMPHOCYTES % 29.3 % (18.0-39.1); MEAN CORPUSCULAR HEMOGLOBIN 30.4 pg (28-32); MEAN CORPUSCULAR HGB CONC 33.3 g/dL (31-35); MEAN CORPUSCULAR VOLUME 91.2 fL (81-99); MONOCYTES # (AUTO) 0.5 (0.2-0.8); MONOCYTES % 9.2 % (4.4-11.3); NEUTROPHILS # (AUTO) 3.3 (2.1-6.9); NEUTROPHILS % 58.8 % (38.7-80.0); PLATELET COUNT 163 x10e3/uL (140-360); RED BLOOD COUNT 4.67 x10e6/uL (4.3-5.7); RED CELL DISTRIBUTION WIDTH 12.5 % (11.7-14.4)
[2019-10-19 19:40] LABS: ANION GAP 14.9 mmol/L (8-16); BLOOD UREA NITROGEN 17 mg/dL (7-26); BUN/CREATININE RATIO 18 (6-25); CALCIUM 8.8 mg/dL (8.4-10.2); CARBON DIOXIDE 21 mmol/L (22-29); CHLORIDE 105 mmol/L (98-107); CREATINE KINASE 53 IU/L (30-200); CREATININE, SERUM 0.93 mg/dL (0.72-1.25); EST GLOMERULAR FILTRATION RATE > 60 ML/MIN (60-); GLUCOSE 148 mg/dL (74-118); POTASSIUM 3.9 mmol/L (3.5-5.1); SODIUM 137 mmol/L (136-145)
--- NOTE | 2019-10-19 19:48 | Diagnostic Imaging Report ---
EXAMINATION: CHEST SINGLE (PORTABLE) INDICATION: SHORT OF BREATH COMPARISON: Multiple prior chest x-ray examinations most recent dated 10/18/2019. FINDINGS: AP view TUBES and LINES: None. . LUNGS/PLEURA: Lungs are well inflated. There is no evidence of pneumonia or pulmonary edema.. There is new obscuration of the right costophrenic angles which could be due to effusion and or atelectasis. HEART AND MEDIASTINUM: The cardiomediastinal silhouette is unremarkable. BONES AND SOFT TISSUES: No acute osseous lesion. Soft tissues are unremarkable. UPPER ABDOMEN: No free air under the diaphragm. IMPRESSION: New obscuration of the right costophrenic angles which could be due to effusion and or atelectasis. Signed by: Price Woodson MD on 10/19/2019 7:44 PM
--- NOTE | 2019-10-19 20:18 | Emergency Department Note ---
History of Present Illnes History of Present Illness Chief Complaint: Chest Pain History of Present Illness This is a 69 year old male PATIENT STATES SINCE 4 AM HE HAS BEEN HAVING SHORTNESS OF BREATH. RR 18, SAT 97%. COMPLETING SENTENCES WITHOU DIFFICULTY. pt was here in this er for headache twice yesterday. . Historian: Patient Arrival Mode: Car Additional Treatment DICTAPHONE MECHANIC: NONE Onset (how long ago): hour(s) (16) Location: chest Quality: sob Radiation: Reports non-radiation Severity: mild Onset quality: sudden Duration (how long): hour(s) (14) Timing of current episode: constant Chronicity: new Context: Denies recent illness, Denies recent surgery, Denies trauma/injury Relieving factors: none Exacerbating factors: none Associated symptoms: Reports denies other symptoms Treatments prior to arrival: none Past Medical/Family History Physician Review I have reviewed the patient's past medical and family history. Any updates have been documented here. Past Medical History Recent Fever: No Clinical Suspicion of Infectio: No New/Unexplained Change in Ment: No Past Medical History: Hypertension, Hyperlipedemia, Chronic Back Pain Past Surgical History: Hernia Repair Other Surgery: HERNIA X6 BACK SX Social History Smoking Cessation: Never Smoker Alcohol Use: None Any Illegal Drug Use: No Family History Family history of heart diseas: No Other Last Tetanus: UNK Review of Systems Review of Systems Constitutional: Reports no symptoms EENTM: Reports no symptoms Cardiovascular: Reports no symptoms Respiratory: Reports as per HPI Gastrointestinal: Reports no symptoms Genitourinary: Reports no symptoms Musculoskeletal: Reports no symptoms Integumentary: Reports no symptoms Neurological: Reports no symptoms Psychological: Reports no symptoms Endocrine: Reports no symptoms Hematological/Lymphatic: Reports no symptoms Physical Exam Related Data Allergies: Coded Allergies: No Known Allergies (Unverified , 08/05/17) Triage Vital Signs Vital Signs Date Time Temp Pulse Resp B/P (MAP) Pulse Ox O2 Delivery O2 Flow Rate FiO2 10/19/19 18:06 98.6 82 18 122/72 97 Room Air Vital signs reviewed: Yes Physical Exam CONSTITUTIONAL Constitutional: Present well-developed, Present well-nourished; Absent distressed HENT HENT: Present normocephalic, Present atraumatic, Present oropharynx clear/moist, Present nose normal HENT L/R: Present left ext ear normal, Present right ext ear normal EYES Eyes: Reports PERRL, Reports conjunctivae normal NECK Neck: Present ROM normal PULMONARY Pulmonary: Present effort normal, Present breath sounds normal; Absent respiratory distress, Absent rales, Absent rhonchi, Absent chest tenderness CARDIOVASCULAR Cardiovascular: Present regular rhythm, Present heart sounds normal, Present capillary refill normal, Present normal rate GASTROINTESTINAL Abdominal: Present soft, Present nontender, Present bowel sounds normal GENITOURINARY Genitourinary: Present exam deferred SKIN Skin: Present warm, Present dry MUSCULOSKELETAL Musculoskeletal: Present ROM normal NEUROLOGICAL Neurological: Present alert, Present oriented x 3, Present no gross motor or sensory deficits PSYCHOLOGICAL Psychological: Present mood/affect normal, Present judgement normal Results Laboratory Result Diagram: 10/19/19 1827 10/19/19 1827 Laboratory Laboratory Tests Test 10/19/19 18:27 White Blood Count 5.67 x10e3/uL (4.8-10.8) Red Blood Count 4.67 x10e6/uL (4.3-5.7) Hemoglobin 14.2 g/dL (14.0-18.0) Hematocrit 42.6 % (38.2-49.6) Mean Corpuscular Volume 91.2 fL (81-99) Mean Corpuscular Hemoglobin 30.4 pg (28-32) Mean Corpuscular Hemoglobin Concent 33.3 g/dL (31-35) Red Cell Distribution Width 12.5 % (11.7-14.4) Platelet Count 163 x10e3/uL (140-360) Neutrophils (%) (Auto) 58.8 % (38.7-80.0) Lymphocytes (%) (Auto) 29.3 % (18.0-39.1) Monocytes (%) (Auto) 9.2 % (4.4-11.3) Eosinophils (%) (Auto) 1.9 % (0.0-6.0) Basophils (%) (Auto) 0.4 % (0.0-1.0) Neutrophils # (Auto) 3.3 (2.1-6.9) Lymphocytes # (Auto) 1.7 (1.0-3.2) Monocytes # (Auto) 0.5 (0.2-0.8) Eosinophils # (Auto) 0.1 (0.0-0.4) Basophils # (Auto) 0.0 (0.0-0.1) Absolute Immature Granulocyte (auto 0.02 x10e3/uL (0-0.1) Sodium Level 137 mmol/L (136-145) Potassium Level 3.9 mmol/L (3.5-5.1) Chloride Level 105 mmol/L (98-107) Carbon Dioxide Level 21 mmol/L (22-29) Anion Gap 14.9 mmol/L (8-16) Blood Urea Nitrogen 17 mg/dL (7-26) Creatinine 0.93 mg/dL (0.72-1.25) Estimat Glomerular Filtration Rate > 60 ML/MIN (60-) BUN/Creatinine Ratio 18 (6-25) Glucose Level 148 mg/dL (74-118) Calcium Level 8.8 mg/dL (8.4-10.2) Creatine Kinase 53 IU/L (30-200) Creatine Kinase MB 1.10 ng/mL (0-5.0) Troponin I 0.005 ng/mL (0-0.300) Lab results reviewed: Yes Imaging Imaging results reviewed: Yes Impressions EXAM: CT Chest WITHOUT contrast INDICATION: ^eval findings on cxr ^Y COMPARISON: Same day chest x-ray TECHNIQUE: Chest was scanned utilizing a multidetector helical scanner from the lung apex through the level of the adrenal glands without administration of IV contrast. Absence of intravenous contrast decreases sensitivity for detection of lymphadenopathy and vascular pathology. Coronal and sagittal reformations were obtained. Routine protocol was performed. IV CONTRAST: None COMPLICATIONS: None RADIATION DOSE: Total DLP: 505.76 mGy*cm Estimated effective dose: (DLP x 0.014 x size factor) mSv CTDIvol has been reviewed. It is below the limits set by the Radiation Protocol Committee (RPC). FINDINGS: LINES/ TUBES: None. LUNGS AND AIRWAYS: Mild bibasilar linear atelectasis/scarring. 9 mm right basilar nodule (series 3, image 75). Airways are normal. PLEURA: Trace right pleural effusion. HEART AND MEDIASTINUM: The thyroid gland is normal. No mediastinal, hilar or axillary lymphadenopathy. The heart is borderline in size.. There is no pericardial effusion. Atherosclerotic calcification of aorta and coronary arteries. Main pulmonary artery measures 3.2 cm, suggestive of pulmonary hypertension. UPPER ABDOMEN: Heterogeneous liver parenchyma, related to areas of fat deposition. There are multiple ill-defined left hepatic lobe hypodensities measuring up to 1.5 cm which cannot be characterized on this unenhanced study. BONES: Old fracture deformities of posterior left 10th and 11th ribs. SOFT TISSUES: Unremarkable. IMPRESSION: 1. Trace right pleural effusion. 2. 9 mm right basilar lung nodule. Recommend further evaluation with PET/CT or short-term follow-up in 3 months. 3. Heterogeneous steatotic liver. There are also left hepatic lobe hypodensities which cannot be characterized on this unenhanced study. Recommend nonurgent liver mass protocol MRI for further evaluation. Signed by: Dr. Ross Jones MD on 10/19/2019 10:22 PM Dictated By: ROSS JONES MD 21 Transcribed By: AMANDA on 10/19/192221 COPY TO: MARKIE JACKSON MD~ Procedures 12 Lead ECG Interpretation ECG Interpretation : ECG: ECG 1 Senior Front End Web Developer: Interpreted by ED physician Date: Oct 19, 2019 Time: 18:17 Rhythm: sinus bradycardia Rate: bradycardia BPM: 53 QRS axis: normal ST segments normal: Yes T waves normal: Yes Other findings: no other findings Clinical Impression: non-specific ECG Assessment & Plan Medical Decision Making MDM pt with c/o sob for last 16 hours, in no distress, denies cough, denies chest pain cbc, bmp, ekg, cxr, cardiac enzymes ordered to eval for myocardial infarction,electrolyte abnormality, pneumonia, pneumothorax Assessment & Plan Final Impression: (1) Dyspnea (2) Pleural effusion (3) Liver nodule (4) Lung nodule Depart Disposition: HOME, SELF-CARE Last Vital Signs Date Time Temp Pulse Resp B/P (MAP) Pulse Ox O2 Delivery O2 Flow Rate FiO2 10/19/19 18:06 98.6 82 18 122/72 97 Room Air Home Meds Active Scripts Tramadol Hcl (ULTRAM) 50 Mg Tablet, 50 MG PO Q6HR PRN for Mild Pain (1-3) or Fever>100.8, #14 TAB Prov:SANDHIR, AMBICA, DO 10/18/19 Butalbital/Aspirin/Caffeine (FIORINAL 50-325-40 MG CAPSULE) 1 Each Capsule, 1 TAB PO Q8HR PRN for HEADACHE, #30 Prov:SANDHIR, AMBICA, DO 10/18/19 Medications in the ED Aspirin 81 mg PRN ONCE PO ; Start 10/19/19 at 18:15; Stop 10/19/19 at 18:19; Status DC MARKIE JACKSON MD Oct 19, 2019 20:18
--- NOTE | 2019-10-19 22:25 | Diagnostic Imaging Report ---
EXAM: CT Chest WITHOUT contrast INDICATION: ^eval findings on cxr ^Y COMPARISON: Same day chest x-ray TECHNIQUE: Chest was scanned utilizing a multidetector helical scanner from the lung apex through the level of the adrenal glands without administration of IV contrast. Absence of intravenous contrast decreases sensitivity for detection of lymphadenopathy and vascular pathology. Coronal and sagittal reformations were obtained. Routine protocol was performed. IV CONTRAST: None COMPLICATIONS: None RADIATION DOSE: Total DLP: 505.76 mGy*cm Estimated effective dose: (DLP x 0.014 x size factor) mSv CTDIvol has been reviewed. It is below the limits set by the Radiation Protocol Committee (RPC). FINDINGS: LINES/ TUBES: None. LUNGS AND AIRWAYS: Mild bibasilar linear atelectasis/scarring. 9 mm right basilar nodule (series 3, image 75). Airways are normal. PLEURA: Trace right pleural effusion. HEART AND MEDIASTINUM: The thyroid gland is normal. No mediastinal, hilar or axillary lymphadenopathy. The heart is borderline in size.. There is no pericardial effusion. Atherosclerotic calcification of aorta and coronary arteries. Main pulmonary artery measures 3.2 cm, suggestive of pulmonary hypertension. UPPER ABDOMEN: Heterogeneous liver parenchyma, related to areas of fat deposition. There are multiple ill-defined left hepatic lobe hypodensities measuring up to 1.5 cm which cannot be characterized on this unenhanced study. BONES: Old fracture deformities of posterior left 10th and 11th ribs. SOFT TISSUES: Unremarkable. IMPRESSION: 1. Trace right pleural effusion. 2. 9 mm right basilar lung nodule. Recommend further evaluation with PET/CT or short-term follow-up in 3 months. 3. Heterogeneous steatotic liver. There are also left hepatic lobe hypodensities which cannot be characterized on this unenhanced study. Recommend nonurgent liver mass protocol MRI for further evaluation. Signed by: Dr. Ross Jones MD on 10/19/2019 10:22 PM
[2019-10-19 22:38] VITALS: BP 142/82
== END 2019-10-19 22:45 | disposition home or self-care (01) ==
LOC: ER 18:17
DX: R06.00 Dyspnea, unspecified (principal); J90 Pleural effusion, not elsewhere classified; R91.8 Other nonspecific abnormal finding of lung field; K76.9 Liver disease, unspecified; I10 Essential (primary) hypertension; E78.5 Hyperlipidemia, unspecified; M54.9 Dorsalgia, unspecified; G89.29 Other chronic pain
CPT/HCPCS: 36415; 71045; 71250; 80048; 82550; 82553; 84484; 85025; 93005; 99284